=== PATIENT | female | born 1980 | race Caucasian/White ===

== ENCOUNTER 2024-04-09 03:13 | Inpatient (IN) | payer OTHER, SELFPAY ==
[2024-04-09] VITALS (18 sets, daily range): BP systolic 131–168; BP diastolic 67–105; BMI 25.9
[2024-04-09] MEDS: ZOFRAN 4 MG IV ×4 (00:44→19:31)
[2024-04-09] MEDS: NSS 1000 IV ×2 (00:44→01:53)
[2024-04-09] MEDS: DILAUDID 1 MG IV ×8 (00:45→23:48)
[2024-04-09 00:52] LABS: % Basophils 0.7 % (0-2); % Eosinophils 2.8 % (0-6); % Immature Granulocytes 1.2 % (0-0.5); % Lymphocytes 28.6 % (20.5-51.1); % Monocytes 6.8 % (1.7-9.3); % Neutrophils 59.9 % (42.2-75.2); Absolute Basophils 0.1 10^3/uL (0-0.2); Absolute Eosinophils 0.3 10^3/uL (0-0.7); Absolute Immature Granulocytes 0.1 10^3/uL (0-0.05); Absolute Lymphocytes 2.8 10^3/uL (1.2-3.4); Absolute Monocytes 0.7 10^3/uL (0.1-0.6); Absolute Neutrophils 5.9 10^3/uL (1.4-6.5); Hematocrit 30.9 % (37.0-47.0); Hemoglobin 10.2 g/dL (12.0-16.0); Mean Corpuscular Volume 78.8 fL (81.0-99.0); Mean Platelet Volume 9.2 fL (7.4-10.4); Nucleated Red Blood Cells % 0 %; Platelet Count 127 10^3/uL (130-400); Red Blood Cell Count 3.92 10^6/uL (4.20-5.40); Red Cell Dist. Width 17.5 % (11.5-14.5); White Blood Cell Count 9.9 10^3/uL (4.8-10.8)
[2024-04-09 00:59] LABS: INR 1.39; PT 16.9 Sec (11.4-14.6)
[2024-04-09 01:00] LABS: APTT 41.2 Sec (23.4-35.0)
--- NOTE | 2024-04-09 01:08 | ED.GENMED ---
History of Present Illness
General
Chief Complaint: Abdominal Pain
Source: patient, records and spouse
Exam Limitations: none
Time Seen by Provider: 04/09/24 00:25
Nursing documentation reviewed up to this point in time: agreed with
History of Present Illness
History of Present Illness:
43-year-old female with a past medical history of alcohol use, asthma, hypertension who presents to the emergency room with her for evaluation of abdominal pain. Patient reports onset of symptoms today and they have been constant since that
time. She reports severe epigastric to right upper quadrant pain. Associated with nausea and vomiting. She reports occasional streaks of blood in the vomit. She also reports that she has had some diarrhea today with occasional dark stools, some
bright red blood as well. She denies any vaginal bleeding or discharge. She denies any urinary symptoms. She denies any fevers or chills. She has had similar symptoms many times in the past most recently was admitted in August 2023 for acute
pancreatitis. She does admit to continued heavy daily alcohol use including today, last drink was roughly 3 hours ago.
Past History
Past History
ED Past Medical History: Psychiatric
ED Past Surgical History: None
Social History
Tobacco: Vaping
Alcohol: Chronic alcoholic (Last drink last PM. States she no longer drinks daily)
Drug: None
Personal:
Living: with family
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
Family History
Family History: Negative Early CAD
Review of Systems
Review of Systems
All Other Systems: ROS reviewed and negative except as documented in HPI and ROS
Constitutional: Denies fever or chills
Respiratory: Denies cough or trouble breathing
Cardiac: Denies chest pain
ABD/GI: Reports abdominal pain, nausea, vomiting, diarrhea and black stools
: Denies dysuria, frequency, flank pain or bleeding
Musculoskeletal: Denies neck pain or back pain
Neurological: Denies dizzy or headache
Phy Exam
Physical Exam
Physical Exam:
General: Awake, alert, oriented x3; appears uncomfortable pacing around the room holding her abdomen
Head: Normocephalic, atraumatic
Eyes: Conjunctiva normal, sclera anicteric
Throat: Airway intact, dry mucous membranes
Neck: Trachea midline, supple without meningismus
Lungs: Clear to auscultation bilaterally, no wheezing, rales, rhonchi
Heart: Tachycardia with regular rhythm, no murmurs, gallops, or rubs
Abd: Soft, non distended, tender to palpation across the upper abdomen with voluntary guarding
Neuro: No gross deficits
Extremities: Warm and well-perfused with no significant edema
Scores
Heart Failure Risk
Heart Failure Risk Score: Not Applicable
Heart Score for Chest Pain Patients
STEMI patient?: Not applicable
Withdrawal Assessment of Alcohol
Withdrawal Assessment Completed?: Not applicable
Course
Orders/Labs/Results
Orders:
Orders
04/09/24 00:26
CT Abd/pelvis W Iv Cont Urgent
Comment:
Reason For Exam: abd pain, N/V
Ondansetron Injectable [Zofran] 4 mg IV NOW STA
04/09/24 00:27
0.9% Sodium Chloride 1000 ml [Nss] 1,000 ml IV BOLUS
04/09/24 00:31
HYDROmorphone [Dilaudid] 1 mg IV NOW STA
04/09/24 00:41
Type+Screen Urgent
Alcohol Urgent
Complete Blood Count/With Diff Urgent
Comprehensive Metabolic Panel Urgent
HCG, Serum Qualitative Screen Urgent
Comment: ADD ON
Lipase Urgent
Magnesium Urgent
PTT Urgent
Prothrombin Time Urgent
04/09/24 00:53
Test Result ONCE
04/09/24 01:14
Pantoprazole [Protonix IV] 80 mg IV NOW STA
04/09/24 01:15
HYDROmorphone [Dilaudid] 1 mg IV NOW STA
Pantoprazole 80 mg/100 ml Nss [Protonix] 80 mg in 100 ml IV Q10H
04/09/24 01:30
Add On- LAB Urgent
Tests Added?: HCG qual
04/09/24 01:34
0.9% Sodium Chloride 1000 ml [Nss] 1,000 ml IV BOLUS
Abnormal Lab Results
04/09/24
00:41
RBC 3.92 L 10^6/uL
(4.20-5.40)
Hgb 10.2 L g/dL
(12.0-16.0)
Hct 30.9 L %
(37.0-47.0)
MCV 78.8 L fL
(81.0-99.0)
MCH 26.0 L pg
(27.0-31.0)
RDW 17.5 H %
(11.5-14.5)
Plt Count 127 L 10^3/uL
(130-400)
Abs Immat Gran (auto) 0.1 H 10^3/uL
(0-0.05)
Absolute Monos (auto) 0.7 H 10^3/uL
(0.1-0.6)
Immature Gran % 1.2 H %
(0-0.5)
PT 16.9 H Sec
(11.4-14.6)
APTT 41.2 H Sec
(23.4-35.0)
Sodium 146 H mmol/L
(135-145)
Chloride 110 H mmol/L
(98-107)
Carbon Dioxide 21 L mmol/L
(22-30)
Creatinine 0.5 L mg/dL
(0.6-1.0)
Glucose 112 H mg/dl
(70-99)
AST 83 H U/L
(14-36)
Alkaline Phosphatase 194 H U/L
(38-126)
Total Protein 8.7 H g/dl
(6.3-8.2)
Lipase 301 H U/L
(23-300)
04/09/24 00:41
04/09/24 00:41
Vital Signs
Initial and Last Documented VS:
Initial Vital Signs
Temp Pulse Resp BP Pulse Ox
37.3 C 127 20 168/105 96
04/09/24 00:17 04/09/24 00:17 04/09/24 00:17 04/09/24 00:17 04/09/24 00:17
Last Documented Vital Signs
Temp Pulse Resp BP Pulse Ox
37.3 C 120 20 164/104 99
04/09/24 00:17 04/09/24 02:06 04/09/24 02:06 04/09/24 02:06 04/09/24 02:06
Procedures
IV Access
Indication: Emergent access required and Physician skill needed
Performed by:: Ravi Maza MD
Site:: right forearm
Gauge:: 18G
Ultrasound Guidance: Yes
MDM/Problems Addressed
Differential Diagnosis Includes:
Acute pancreatitis, acute gastritis, cholecystitis/cholelithiasis, bowel obstruction
MDM/Problems Addressed:
43-year-old female presents for evaluation of abdominal pain with nausea and vomiting, diarrhea. She has had some hematemesis and dark stools. Long history of alcohol abuse. Hypertensive and tachycardic on arrival. Physical exam as above. IV
placed labs sent off including a CBC and a CMP, coags, type and screen, lipase. Will check alcohol level and hCG. Will send for CT of the abdomen pelvis. Will treat with IV Dilaudid, IV Zofran, IV Protonix. Will provide IV fluids. Will monitor
for signs of acute alcohol withdrawal�no signs of withdrawal at present, suspect tachycardia related to hypovolemia and hypertension related to pain. Will reassess after the above.
Labs reviewed: CBC shows marginal anemia which is stable. CMP shows mild hypernatremia likely hypovolemic. T. bili normal, AST marginally elevated, ALT normal. Lipase borderline at 301 but suspect may be misleading in the setting of recurrent
pancreatitis. Awaiting CT.
CT reviewed: Signs consistent with hepatitis and acute pancreatitis. Suspect acute alcoholic pancreatitis and hepatitis. Also having some upper GI bleeding likely some element of gastritis as well. PPI started. Patient received fluids and
symptom control. Will admit for continued management. Case discussed with hospitalist.
Chronic conditions affecting care:
Alcohol abuse
Acute Exacerbation and/or Progression of Chronic Illness:
Acutely hypertensive likely pain related�treat pain but no emergent antihypertensive for now
Acute Exacerbation and/or Progression of Chronic Illness: HTN
*Radiology
Radiology exam reviewed: radiology read reviewed
*Pulse Oximetry
Patient hypoxic: no
*Critical Care Note
Total Time (30-74mins, 75-104mins- exclusive of procedures): Not Applicable
Data Reviewed
Review of Other/Old Records Reveals: Labs, Records, Radiology Studies and Discharge Summary
Source: patient and records
Patient Management
Discussion with other providers: Hospitalist (Case discussed with hospitalist)
Escalation/DeEscalation of care consider admission/obs:
Admission indicated
ED Attending Note
-
Portions of this chart may have been created with voice recognition software.� Occasional wrong word or��sound alike� substitutions may have occurred due to the inherent limitations of voice recognition software.
Discharge Plan
Departure
Patient Disposition: Admit
Date of Disposition: 04/09/24
Time of Disposition: 02:27
Admit to doctor: Rosalinda
Presentation/result/management discussed w/ accepting MD/DO: Hospitalist
Discharge Problem:
Acute alcoholic hepatitis, Acute alcoholic pancreatitis, Acute alcoholic gastritis, Acute upper GI bleed
Prescriptions:
No Action
cetirizine [Zyrtec] 10 mg Tablet
10 mg PO DAILY
albuterol sulfate 90 mcg/actuation Hfa Aerosol Inhaler
2 puff INHALATION R Q6HPRN PRN (Reason: sob/wheezing)
ondansetron 4 mg tablet,disintegrating
4 mg PO Q8HPRN PRN (Reason: nausea/vomiting)
Referrals:
NONE,* [Family Provider] -
Interventions
Interventions:
*Risk Screen - Suicide Last Done: 04/09/24 00:17
*General Assessment Last Done: 04/09/24 00:17
*Neglect/Abuse Screening Last Done: 04/09/24 00:17
ED- Fall Risk Assessment Last Done: 04/09/24 00:17
*ED COVID-19 Vaccine History Last Done: 04/09/24 00:17
LU-Mwbbej-Rovivvsdcl Assessment Last Done: 04/09/24 01:00
Discharge Date and Time
Print Language: SOUTH AFR[place]
[2024-04-09 01:09] LABS: ALT (SGPT) 27 U/L (0-35); AST (SGOT) 83 U/L (14-36); Albumin 4.7 g/dl (3.5-5.0); Alkaline Phosphatase 194 U/L (38-126); Blood Urea Nitrogen 7 mg/dl (7-17); Calcium 9.6 mg/dl (8.4-10.2); Carbon Dioxide 21 mmol/L (22-30); Chloride 110 mmol/L (98-107); Estimated Creatinine Clearance 99 ml/min; Glucose 112 mg/dl (70-99); Lipase 301 U/L (23-300); Sodium 146 mmol/L (135-145); Total Bilirubin 0.9 mg/dl (0.2-1.3); Total Protein 8.7 g/dl (6.3-8.2); eGFR > 60.00
[2024-04-09 01:32] LABS: HCG, Serum Qualitative Screen Negative
[2024-04-09] MEDS: PROTONIX 100 IV ×3 (01:53→21:21)
[2024-04-09] MEDS: PROTONIX IV 80 MG IV (01:53)
--- NOTE | 2024-04-09 02:46 | HPS.HSE ---
Family Physician
-
Family Physician: * NONE
Chief Complaint
-
abdominal pain, vomiting blood , blood in dirrhea
History of Present Illness
43F HX ETOH abuse , HTN seen at ER for evaluation of abdominal pain
Current acute abdominal pain
- starts yesterday
- constant at RUQ and epigastrium
- POS N/V
- noted streaks of blood in vomitus
- also diarrhea today with mixed with dark stools and bright red blood
- No fever and chills
Report heavy daily alcohol use including today, last drink was roughly 3 hours ago.
Medical History
Past Medical History
Past Medical History: Reports Other (anxiety/depression, alcohol use disorder)
Past Surgical History: Reports None
Social History
Tobacco: Vaping
Alcohol: Occasional
Drug: None
Family History
Family History: Not pertinent
Allergies / Home Medications
Allergies reflects when Allergies were last updated in [facility].
Home Medications with original date entered in [facility]
Allergy/Medication List:
Allergies
Allergy/AdvReac Type Severity Reaction Status Date / Time
lavender (Lavandula Allergy Hives Verified 05/29/23 08:15
angustifolia)
morphine Allergy Hives Verified 05/29/23 08:15
Home Medications
cetirizine 10 mg tablet (Zyrtec) 10 mg PO DAILY 05/29/23
albuterol sulfate 90 mcg/actuation aerosol inhaler 2 puff inhalation R Q6HPRN PRN sob/wheezing 08/14/23
diphenhydramine HCl 25 mg capsule (Benadryl) 50 mg PO HS 08/14/23
ondansetron 4 mg disintegrating tablet 4 mg PO Q8HPRN PRN nausea/vomiting 08/14/23
Review of Systems
-
History Source: Patient
A 12 point ROS was completed and negative except as noted: Yes
Constitutional: Reports No Symptoms
EENT: Reports No Symptoms
Respiratory: Reports No Symptoms
Cardiac: Reports No Symptoms
Abdomen/GI: Reports Abdominal Pain, Nausea and Bloody Stools
: Reports No Symptoms
Musculoskeletal: Reports No Symptoms
Skin: Reports No Symptoms
Neurological: Reports No Symptoms
Endocrine: Reports No Symptoms
Hematologic/Lymphatic: Reports No Symptoms
Psych: Reports No Symptoms
Physical Exam
Vital Signs
Vital Signs
Temp Pulse Resp BP Pulse Ox
99.2 F 120 20 164/104 99
04/09/24 00:17 04/09/24 02:06 04/09/24 02:06 04/09/24 02:06 04/09/24 02:06
Physical Exam
General: Well Developed, Well Nourished and No Apparent Distress
HEENT: NormoCephalic, Moist mucous membranes and Atraumatic
Respiratory: Clear
Cardiac: S1/S2 and Regular Rhythm; No Murmur or Rub
GI: Soft, Non Tender, Non Distended and Normal Bowel Sounds; No Organomegaly
Rectal: Deferred by Provider
Musculoskeletal: No Clubbing, No Cyanosis and No Edema
Skin: No Rash
Neuro: Nonfocal/grossly intact
Laboratory Results
-
04/09/24 00:41
04/09/24 00:41
Laboratory Results
PT 16.9 Sec (11.4-14.6) H 04/09/24 00:41
INR 1.39 04/09/24 00:41
APTT 41.2 Sec (23.4-35.0) H 04/09/24 00:41
Total Bilirubin 0.9 mg/dl (0.2-1.3) 04/09/24 00:41
AST 83 U/L (14-36) H 04/09/24 00:41
ALT 27 U/L (0-35) 04/09/24 00:41
Alkaline Phosphatase 194 U/L (38-126) H 04/09/24 00:41
Lipase 301 U/L (23-300) H 04/09/24 00:41
Data Reviewed
-
CT Scan: Report Reviewed by me
Lab Data: Labs Reviewed by me
Old Records: Reviewed
Impression/Plan
-
Reviewed VS: T 99.2 HR 120 BP 165/105
Data
nl WCC
Hgb 10.2
Plt 127
INR 1.39
Na 146
Cl 110
nl Cr eGFR > 60
AST 83
Nl ALT
AKP 195
Lipase 301
NEG HCG
04/08/24 CT AP : night hawk prelim report: consistent with pancreatitis and hepatitis.
ASSESSMENT & PLAN
Acute ETOH pancreatitis by CT evidence with minimally elevated lipase
- NPO and LR IVF
- Narcotic analgesia PRN
- Anti emetics PRN
- on PPI
- GI consult
Acute emesis with blood streak DDX: esophagitis, gastric erosions , MWT
Dark stool diarrhea with ? hematochezia
- NPO and IVF
- T & S blood consented
- PPI gtt
- Trend H & H
- await GI evaluation
Mild Transaminitis secondary to alcohol use/hepatic steatosis
- Trend LFts
Hi risk for ETOH WDS: Last ETOH/ Vodka was 3 hrs [employer]
Severe ETOH use disorder
-Thiamine folate
- ETOH withdrawal protocol
Anxiety/depression
Vaping history
DVT Px: SCD
Code: Full code
IP TLM
[2024-04-09 03:24] LABS: Alcohol 300 mg/dl
[2024-04-09] MEDS: LR 1000 IV ×4 (04:55→19:31)
[2024-04-09 05:19] LABS: Hematocrit 26.9 % (37.0-47.0); Hemoglobin 8.7 g/dL (12.0-16.0)
[2024-04-09 05:40] LABS: ALT (SGPT) 24 U/L (0-35); AST (SGOT) 73 U/L (14-36); Albumin 4.1 g/dl (3.5-5.0); Alkaline Phosphatase 167 U/L (38-126); Blood Urea Nitrogen 6 mg/dl (7-17); Calcium 8.1 mg/dl (8.4-10.2); Carbon Dioxide 18 mmol/L (22-30); Chloride 112 mmol/L (98-107); Estimated Creatinine Clearance 99 ml/min; Glucose 138 mg/dl (70-99); Lipase 142 U/L (23-300); Potassium 3.7 mmol/L (3.5-5.1); Sodium 144 mmol/L (135-145); Total Bilirubin 0.8 mg/dl (0.2-1.3); Total Protein 7.6 g/dl (6.3-8.2); eGFR > 60.00
--- NOTE | 2024-04-09 06:49 | CON.GI ---
Addendum entered and electronically signed by Shelli Matthew DO 04/09/24 08:46:
Patient seen and examined independently of RADHA. I agree with her note with my additions below
Bob is a 43-year-old female with history of prior alcoholic pancreatitis, alcohol and depression and a gallon of vodka daily who presents with a difficult history but mainly abdominal pain nausea vomiting with streaks of blood. Her last vodka was
3 drinks before admission. Patient believes she had some black stool but nothing here. Her hemoglobin is 8.7 she is microcytic indices with hemoglobin earlier today when she was more hemoconcentrated at 10.2. Platelets are 127. Lipase 300. She
is not answering many questions. She is not on any GLP-1's. On admission total bilirubin 0.9, AST 83, ALT 27, alkaline phosphatase 194. Currently she is tachycardic into the 120s. She is normotensive. She is somnolent after receiving some
benzodiazepines. Her last endoscopy was in 2022 at [facility] with subjective gastritis. She does take daily NSAIDs with several ibuprofen daily. She has not been eating much mainly focusing on alcohol intake and has lost about 25 pounds
since the fall.
# Nausea vomiting -infectious versus and withdrawal versus alcoholic gastritis versus other versus pancreatitis
-- Awaiting CT scan
-- Check urine
-- Withdrawal medications, would start right away
-- PPI drip, antiemetics, monitor hemoglobin
Original Note:
Consultation
-
Date/Time Consultation Requested: 04/09/24 1000
Date/Time Consultation Performed: 04/09/24 0650
Requesting Provider: Kristian Tellez MD
Performing Provider: RADHA Skinner, Shelli Matthew DO
Reason for Consultation: ETOH abuse, elevated lipase, hematemesis
Medical History
Chief Complaint / HPI
Chief Complaint: abdominal pain
History of Present Illness:
Pt is a 42yo presents with hx prior pancreatitis, anxiety/depression and ETOH use presents for abdominal pain and noted emesis with streaks of blood with heavy ETOH use. Pt was seen in 2022 with similar symptoms after starting Saxenda and during
that admission was noted with pancreatitis with concern for ETOH abuse. On admission she is now noted with bili 0.9, AST 83, ALT 27, alk phos 194, lipase 301. Pt states she has been having ongoing issues with abdominal pain, nausea, vomiting, wt
loss but symptoms worse since day prior to admission. Abdominal pain in epigastric and RUQ and constant. She rates ad 05/10. Difficult to say what makes pain better or worse.
She otherwise admits to nausea and vomiting with vomiting some blood with more streaks of blood noted and some black stools with some diarrhea. She denies odynophagia, dysphagia, GERD, constipation, stools. + daily NSAID use several Ibuprofen
daily. Hx EGD 2022 with ' gastritis' at [facility]. No prior EGD.
Past Medical History
Past Medical History: Other (ETOH abuse, anxiety, depression, pancreatitis )
Social History
Tobacco: Vaping
Alcohol: Daily (' difficulty to say but increased use')
Drug: None
Personal:
Living: With Family
Employment: Not Employed
Family History
Family History: Other (no family hx liver/pancreatic issues, mother with IBS )
Allergies / Home Medications
Allergy/AdvReac Type Severity Reaction Status Date / Time
lavender (Lavandula Allergy Hives Verified 04/09/24 00:16
angustifolia)
morphine Allergy Hives Verified 04/09/24 00:16
�Medication �Instructions �Recorded
cetirizine 10 mg tablet (Zyrtec) 10 mg PO DAILY Allergies 05/29/23
albuterol sulfate 90 mcg/actuation 2 puff inhalation R Q6HPRN PRN 08/14/23
aerosol inhaler sob/wheezing
ondansetron 4 mg disintegrating 4 mg PO Q8HPRN PRN nausea/vomiting 08/14/23
tablet
Review of Systems
-
History Source: Patient and Family
Constitutional: Reports Weight Loss (25 lbs loss since last fall per records ) and Fatigue
EENT: Reports No Symptoms
Respiratory: Reports No Symptoms
Abdomen/GI: Reports Abdominal Pain, Nausea, Vomiting (with streaks of blood) and Black Stools (per patient )
: Reports No Symptoms
Musculoskeletal: Reports No Symptoms
Neurological: Reports Other (+ tremors )
Hematologic/Lymphatic: Reports Bleeding
Vital Signs
Temp Pulse Resp BP Pulse Ox
97.5 F 124 22 152/103 94
04/09/24 04:25 04/09/24 06:00 04/09/24 02:57 04/09/24 05:00 04/09/24 06:27
Physical Exam
Exam
General: Other (currently vomiting with bilious emesis noted )
HEENT: Normocephalic and Anicteric
Respiratory: Clear
Cardiac: Other (tachy )
GI: Soft, Tender, Distended and Organomegaly
Musculoskeletal: No Clubbing and No Cyanosis
Skin: Warm and Dry
Neuro: Awake, AO x 3 and Other (anxious )
Psych: Calm
Results
WBC 9.9 10^3/uL (4.8-10.8) 04/09/24 00:41
Hgb 8.7 g/dL (12.0-16.0) L 04/09/24 05:03
Hct 26.9 % (37.0-47.0) L 04/09/24 05:03
MCV 78.8 fL (81.0-99.0) L 04/09/24 00:41
Plt Count 127 10^3/uL (130-400) L 04/09/24 00:41
Absolute Neuts (auto) 5.9 10^3/uL (1.4-6.5) 04/09/24 00:41
PT 16.9 Sec (11.4-14.6) H 04/09/24 00:41
INR 1.39 04/09/24 00:41
APTT 41.2 Sec (23.4-35.0) H 04/09/24 00:41
Sodium 144 mmol/L (135-145) 04/09/24 05:03
Potassium 3.7 mmol/L (3.5-5.1) 04/09/24 05:03
Chloride 112 mmol/L (98-107) H 04/09/24 05:03
Carbon Dioxide 18 mmol/L (22-30) L 04/09/24 05:03
BUN 6 mg/dl (7-17) L 04/09/24 05:03
Creatinine 0.4 mg/dL (0.6-1.0) L 04/09/24 05:03
Calcium 8.1 mg/dl (8.4-10.2) L D 04/09/24 05:03
Total Bilirubin 0.8 mg/dl (0.2-1.3) 04/09/24 05:03
AST 73 U/L (14-36) H 04/09/24 05:03
ALT 24 U/L (0-35) 04/09/24 05:03
Alkaline Phosphatase 167 U/L (38-126) H 04/09/24 05:03
Lipase 142 U/L (23-300) 04/09/24 05:03
Diagnostic Image Results:
04/09/24 CT A/p pending
08/23/23 obs series
Nonobstructive bowel gas pattern. Contrast material in the colon.
08/21/23 CT A/p
1). Pancreatitis with slight worsening of moderate inflammatory stranding around the head and neck and uncinate process of the pancreas
2). Hepatomegaly with diffuse fatty infiltration of the liver
08/18/23 MR abdomen with and without
Hepatomegaly with severe fatty infiltration.
Mild splenomegaly.
Mild interstitial pancreatitis involving the head and proximal body.
No common bile duct or main pancreatic duct dilatation. No evidence of choledocholithiasis.
08/16/23 - US abdomen
1. Trace gallbladder sludge without convincing sonographic evidence for acute cholecystitis.
2. Hepatomegaly and increased echogenicity in the liver, compatible with underlying hepatocellular disease, which most commonly relates to fatty infiltration of the liver.
3. Poorly visualized pancreas which appears heterogeneous in keeping with known pancreatitis
08/14/23 CT Abd/pelvis W Iv Cont
IMPRESSION: CT findings compatible with pancreatitis. There is no evidence of a collection to suggest abscess or developing pseudocyst. No gross evidence of pancreatic necrosis.
No calcified gallstones are identified. There are no CT findings to suggest acute cholecystitis with no evidence for biliary ductal dilation.
Hepatomegaly with diffuse severe fatty infiltration of the liver.
Small peripheral foci of renal parenchymal loss bilaterally, slightly greater on the right compared to the left, and compatible with peripheral scarring.
�
Prior GI Procedures:
EGD: inflammation neg h pylori [facility]
Colonoscopy: none
Assessment / Plan
-
Pt is a 42yo presents with hx anxiety/depression and occasional ETOH use presents for abdominal pain and noted emesis with streaks of blood with heavy ETOH use. Pt was seen in 2022 with similar symptoms after starting Saxenda and during that
admission was noted with pancreatitis with concern for ETOH abuse. On admission she is now noted with bili 0.9, AST 83, ALT 27, alk phos 194, lipase 301.
-abdominal pain with concern for recurrent pancreatitis
-elevated LFT's- prior noted hepatomegaly in imaging
-ETOH abuse
-daily NSAID use
-nausea/vomiting with hematemesis
-hx EGD 2022 with ? gastritis
-anemia
-thrombocytopenia
-anxiety/depression
-splenomegaly
-vaping
PLAN:
etiology of abdominal pain with mild lipase elevation related to pancreatitis from ETOH use with concurrent ETOH hepatitis , biliary related vs other
monitor for recurrent hematemesis/black stools if noted consider EGD when stable from w/d unless signs of aggressive bleeding-- MW tear, PUD, esophagitis vs other
anemia may be multifactorial with some reported bleeding but also bone marrow suppression with ETOH use -- may have some component of ETOH hepatitis (DF low 18.8 on admission labs with control of 13)
CT pending
PPI gtt
trend CBC and INR
IVF LR at 200ml/hr
pain control
NPO
monitor for withdrawal
counseled on quitting ETOH
stressed need for good nutrition
updated spouse on plan
support given -- social work consult
consider psych eval for W/D symptoms
-
-
Thank you for consultation and allowing me to participate in the patient's care. Please call the credit administration specialist GI physician during the after hours with any questions or concerns.
--- NOTE | 2024-04-09 08:00 | PTCARENOTE ---
Received pt awake and alert.+ hand tremors,restlessness,nausea,diaphoresis,and tachycardia.MSAS 9.Medicated with Ativan.Pt c/o severe abdominal pain.ST.IVF and Protonix gtt infusing.POX 95% RA.Lungs CTA.c/o severe nausea.+ moderate amount bilious
emesis.No BM.Voiding in bathroom.Pt's at bedside.Plan of care discussed.Dr Ortiz notifies of emesis and pain.Medicated with Dilaudid and Compazine as ordered.
[2024-04-09] MEDS: THIAMINE INJECTION 200 MG IV ×3 (08:02→23:47)
[2024-04-09] MEDS: COMPAZINE 5 MG IV (08:03)
[2024-04-09] MEDS: FOLVITE 1 MG PO (08:04)
--- NOTE | 2024-04-09 08:18 | W.PN.HOSP.TC ---
Addendum entered and electronically signed by Keke Ortiz MD 04/09/24 14:36:
MSAS scoring high, will start phenobarb taper discussed with RN
transfer to IMU given continued elevated scores
no e/o DT
Original Note:
Today's Communication/Plan
-
IVF
pain control
trend H/H
GI consult
Assessment / Plan
Assessment / Plan
ASSESSMENT & PLAN
Acute ETOH pancreatitis by CT evidence with minimally elevated lipase
- NPO and LR IVF
- Narcotic analgesia PRN
- Anti emetics PRN
- on PPI
- GI consult
Acute emesis with blood streak DDX: esophagitis, gastric erosions , MWT
Dark stool diarrhea with ? hematochezia
- NPO and IVF
- T & S blood consented
- PPI gtt
- Trend H & H
- await GI evaluation
Mild Transaminitis secondary to alcohol use/hepatic steatosis
- Trend LFts
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
Severe ETOH use disorder
-Thiamine folate
- ETOH withdrawal protocol
Anxiety/depression
Vaping history
DVT Px: SCD
Code: Full code
IP TLM
Anticipated Discharge: > 48 hours
Subjective/Interval History
-
Date of Service: April 09, 2024
just received dilaudid and ativan for MSAS 9
pain improving
last vomited 30 minutes ago - bilious
Objective Data
-
Labs:
Laboratory Results
04/09/24 04/09/24 04/09/24
00:41 05:03 10:00
WBC 9.9
Hgb 10.2 L 8.7 L Pending
Hct 30.9 L 26.9 L Pending
Plt Count 127 L
PT 16.9 H
INR 1.39
APTT 41.2 H
Sodium 146 H 144
Potassium 4.0 3.7
Chloride 110 H 112 H
Carbon Dioxide 21 L 18 L
BUN 7 6 L
Creatinine 0.5 L 0.4 L
Glucose 112 H 138 H
Calcium 9.6 8.1 L D
Total Bilirubin 0.9 0.8
AST 83 H 73 H
ALT 27 24
Alkaline Phosphatase 194 H 167 H
04/09/24 04/09/24
16:00 22:00
WBC
Hgb Pending Pending
Hct Pending Pending
Plt Count
PT
INR
APTT
Sodium
Potassium
Chloride
Carbon Dioxide
BUN
Creatinine
Glucose
Calcium
Total Bilirubin
AST
ALT
Alkaline Phosphatase
Vital Signs:
Vital Signs
Temp Pulse Resp BP Pulse Ox
98.1 F 124 22 152/103 94
04/09/24 08:09 04/09/24 06:00 04/09/24 02:57 04/09/24 05:00 04/09/24 06:27
I&O
04/08/24 04/09/24 04/10/24
06:59 06:59 06:59
Intake Total 1999
Balance 1999
Review of Systems
-
History Source: Patient
All other systems: Reviewed and negative
Physical Exam
-
General: No Apparent Distress
HEENT: PERRLA
Respiratory: Clear to Auscultation; Negative Wheezes
Cardiac: S1/S2
GI: Other (tenderness mid-epigastric region )
Musculoskeletal: No Edema
Skin: Warm and Dry; Negative Rash
Neuro: AO x 3
Psych: Calm
Data Reviewed
-
Diagnostic Radiology: Report Reviewed by me
Labs: Labs Reviewed by me
[2024-04-09 10:32] LABS: Iron 62 ug/dl (37-170); Phosphorus 4.8 mg/dl (2.5-4.5)
[2024-04-09 10:42] LABS: Percent Saturation 13 % (20-50); Total Iron Binding Capacity 448 ug/dl (265-497)
[2024-04-09 10:55] LABS: Hematocrit 27.5 % (37.0-47.0); Hemoglobin 8.8 g/dL (12.0-16.0)
[2024-04-09] MEDS: ATIVAN 1 MG PO ×2 (10:57→14:25)
--- NOTE | 2024-04-09 11:05 | CM ---
CM following re: discharge planning.
Reviewed pt's chart, met with pt and pt's at bedside.
Pt is a 43 year old female, admitted with primary dx of Acute ETOH pancreatitis.
Pt allowed her to stay in the room during interview. Pt reports she lives with and 17 year old daughter in a 2SH, 2 steps to enter. 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 Pt admitted to significant h/o alcohol abuse,
has been drinking heavily for years, went to [facility] inpatient D&A a few years ago. pt stated after being at [facility] inpatient D&A rehab, she stayed sober for a while, relapsed and was not looking for any treatment. Pt stated she did not have a
good experience at [facility] and she is not looking for to go to inpatient D&A rehab. CM explained to the pt the importance of inpatient level of D&A rehab and pt stated she will think about it. Pt expressed her agreement [facility]. A
referral to [facility] made, spoke to MOIZ Pretty and he will meet with the pt shortly and he stated he will encourage the pt to go to [place] inpatient D&A rehab.
PCP: Pt stated she does not have PCP, agrees to go to wellness center office on [facility].
Pharmacy: [facility]
D/c plan: Inpatient D&A rehab if pt agrees. otherwise - outpatient D&A program with [facility] to follow.
CM will follow with discharge plan updates as hospitalization progresses
[2024-04-09 11:13] LABS: Urine Albumin Negative (Neg - Trace); Urine Bilirubin Negative (Negative); Urine Character Slightly Cloudy (Clear); Urine Color Yellow; Urine Glucose Negative (Negative); Urine Ketone Negative (Negative); Urine Leukocyte Trace (Negative); Urine Nitrite Positive (Negative); Urine Occult Blood Negative (Negative); Urine Specific Gravity 1.015 (<1.030); Urine Urobilinogen Negative (Neg - 1+)
[2024-04-09 11:23] LABS: Ferritin 10.6 ng/ml (6.24-137)
[2024-04-09 12:05] LABS: Urine Amorphous Seen; Urine Bacteria Many (Negative); Urine Red Blood Cell 0-2 /HPF (0-2)
[2024-04-09] MEDS: PROTONIX IV ×2 (12:21→12:23)
--- NOTE | 2024-04-09 13:09 | PTCARENOTE ---
Pt assessed.MSAS 6.Medicated with Ativan po as per order set.No emesis,but c/o nausea.Medicated with Zofran.
--- NOTE | 2024-04-09 14:45 | PTCARENOTE ---
Pt c/o severe abdominal pain and nausea.MSAS 7.Medicated with Ativan and Dilaudid as ordered.Phenobarb and upgrade to IMU as per Dr Ortiz.
[2024-04-09] MEDS: LUMINAL 97.2 MG PO ×2 (15:44→21:22)
--- NOTE | 2024-04-09 16:17 | PTCARENOTE ---
Pt assessed.Abdominal pain and nausea have resolved at this time.
[2024-04-09 17:37] LABS: Hematocrit 26.4 % (37.0-47.0); Hemoglobin 8.3 g/dL (12.0-16.0)
[2024-04-09 21:38] LABS: Hematocrit 26.9 % (37.0-47.0); Hemoglobin 8.7 g/dL (12.0-16.0)
[2024-04-10] VITALS (13 sets, daily range): BP systolic 128–156; BP diastolic 85–106
[2024-04-10] MEDS: ATIVAN 1 MG PO (00:49)
--- NOTE | 2024-04-10 01:37 | PTCARENOTE ---
Rec'd care of patient at change of shift. Patient alert and oriented. Anxious/restless at times. MSAS continued. ST on tele monitor. Rate in the 100-110's. VSS. C/o RUQ abdominal pain and nausea. PRN Dilaudid/Zofran. Voiding in bathroom. No BM. 2200
H&H 8.7/26.9. IVFs and Protonix gtt infusing through peripheral INT.
[2024-04-10] MEDS: LR 1000 IV ×2 (02:41→07:31)
[2024-04-10] MEDS: ZOFRAN 4 MG IV (05:05)
[2024-04-10] MEDS: DILAUDID 1 MG IV ×6 (05:05→21:33)
[2024-04-10 05:33] LABS: % Basophils 0.3 % (0-2); % Immature Granulocytes 0.3 % (0-0.5); % Lymphocytes 18.2 % (20.5-51.1); % Monocytes 8.7 % (1.7-9.3); % Neutrophils 69.5 % (42.2-75.2); Absolute Eosinophils 0.1 10^3/uL (0-0.7); Absolute Lymphocytes 0.7 10^3/uL (1.2-3.4); Absolute Monocytes 0.3 10^3/uL (0.1-0.6); Absolute Neutrophils 2.6 10^3/uL (1.4-6.5); Hematocrit 26.3 % (37.0-47.0); Hemoglobin 8.4 g/dL (12.0-16.0); Mean Corp Hgb Conc. 31.9 g/dL (33.0-37.0); Mean Corpuscular Hgb 25.2 pg (27.0-31.0); Nucleated Red Blood Cells % 0 %; Red Blood Cell Count 3.33 10^6/uL (4.20-5.40); Red Cell Dist. Width 17.2 % (11.5-14.5); White Blood Cell Count 3.7 10^3/uL (4.8-10.8)
[2024-04-10 05:42] LABS: INR 1.54; PT 18.6 Sec (11.4-14.6)
[2024-04-10 06:05] LABS: ALT (SGPT) 20 U/L (0-35); AST (SGOT) 52 U/L (14-36); Albumin 3.8 g/dl (3.5-5.0); Alkaline Phosphatase 162 U/L (38-126); Blood Urea Nitrogen 5 mg/dl (7-17); Calcium 8.9 mg/dl (8.4-10.2); Carbon Dioxide 27 mmol/L (22-30); Chloride 98 mmol/L (98-107); Estimated Creatinine Clearance 99 ml/min; Glucose 82 mg/dl (70-99); Lipase 105 U/L (23-300); Magnesium 1.4 mg/dl (1.6-2.3); Potassium 3.5 mmol/L (3.5-5.1); Sodium 133 mmol/L (135-145); Total Protein 7.1 g/dl (6.3-8.2); eGFR > 60.00
[2024-04-10] MEDS: MAGNESIUM SULFATE 102 GRAMS IV (07:31)
[2024-04-10] MEDS: LUMINAL 97.2 MG PO ×3 (07:32→21:33)
[2024-04-10] MEDS: THIAMINE INJECTION 200 MG IV ×2 (07:33→16:51)
[2024-04-10] MEDS: FOLVITE 1 MG PO (07:33)
--- NOTE | 2024-04-10 08:05 | PTCARENOTE ---
Received pt awake and alert.Speech appropriate.No tremors.Gait is steady.Pt states that she feels better except for the occasional abdominal pain. c/o 8/10 RUQ abdominal pain.Medicated with Dilaudid.ST noted.IVF and Protonix gtt infusing.Lungs
CTA.POX 92-96%NPO.Slight nausea with no emesis.No BM.Voiding in bathroom.Plan of care discussed.
--- NOTE | 2024-04-10 08:46 | W.PN.HOSP.TC ---
Today's Communication/Plan
-
see plan
Assessment / Plan
Assessment / Plan
ASSESSMENT & PLAN
CT A/P
IMPRESSION:
1. Hepatomegaly and portal hypertension with splenomegaly and recanalization of the umbilical vein. No definitive cirrhotic changes of the liver at CT, however the liver shows diffuse heterogeneous enhancement as above. While this can be seen in
association with hepatitis, it is suspicious for a perfusion anomaly. As on the prior study, predominantly low attenuation of the hepatic parenchyma related to fatty infiltration. Portal veins are patent. As above, hepatic veins are not well seen.
Evaluation of this is limited secondary to single portal venous phase acquisition. These findings could be further evaluated with follow-up abdominal MRI or ultrasound with Doppler evaluation.
2. Mild peripancreatic stranding suggesting possible pancreatitis. This is less pronounced as compared with the prior examination.
Acute ETOH pancreatitis by CT evidence with minimally elevated lipase
- NPO and LR IVF
- Narcotic analgesia PRN
- Anti emetics PRN
- on PPI
- GI consult appreciated
- consider advancing to clears today if no plans for EGD
Acute emesis with blood streak DDX: esophagitis, gastric erosions , MWT
Dark stool diarrhea with ? hematochezia
- NPO and IVF
- T & S blood consented
- PPI gtt
- Trend H & H
- repeat Hg with PLT this afternoon
Mild Transaminitis secondary to alcohol use/hepatic steatosis
- Trend LFts
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
Severe ETOH use disorder
-Thiamine folate
- ETOH withdrawal protocol
-phenobarb taper initiated
Anxiety/depression
Vaping history
DVT Px: SCD
Code: Full code
IP TLM
Anticipated Discharge: > 48 hours
Subjective/Interval History
-
Date of Service: April 10, 2024
continues to have pain
withdrawal symptoms better controlled
Objective Data
-
Labs:
Laboratory Results
04/09/24 04/10/24
21:27 05:14
WBC 3.7 L
Hgb 8.7 L 8.4 L
Hct 26.9 L 26.3 L
Plt Count
PT 18.6 H
INR 1.54
Sodium 133 L D
Potassium 3.5
Chloride 98
Carbon Dioxide 27
BUN 5 L
Creatinine 0.4 L
Glucose 82
Calcium 8.9
Total Bilirubin 2.0 H D
AST 52 H
ALT 20
Alkaline Phosphatase 162 H
Vital Signs:
Vital Signs
Temp Pulse Resp BP Pulse Ox
99.1 F 106 8 144/89 96
04/10/24 08:15 04/10/24 08:00 04/10/24 08:00 04/10/24 08:00 04/10/24 08:03
I&O
04/09/24 04/10/24 04/11/24
06:59 06:59 06:59
Intake Total 1999 5040 / 5350 520 / 520
Balance 1999 5040 / 5350 520 / 520
Review of Systems
-
History Source: Patient
All other systems: Reviewed and negative
Physical Exam
-
General: No Apparent Distress
HEENT: PERRLA
Respiratory: Clear to Auscultation; Negative Wheezes
Cardiac: S1/S2
GI: Other (tenderness mid-epigastric region )
Musculoskeletal: No Edema
Skin: Warm and Dry; Negative Rash
Neuro: AO x 3
Psych: Calm
Data Reviewed
-
Diagnostic Radiology: Report Reviewed by me
Labs: Labs Reviewed by me
[2024-04-10 09:32] LABS: Phosphorus 3.5 mg/dl (2.5-4.5)
[2024-04-10] MEDS: MAGNESIUM SULFATE 50 IV (09:37)
[2024-04-10] MEDS: NSS (PRESERVATIVE FREE) 10 ML IV ×2 (09:37→19:18)
[2024-04-10] MEDS: PROTONIX IV 40 MG IV ×2 (09:37→19:18)
[2024-04-10] MEDS: PROTONIX IV (10:06)
[2024-04-10] MEDS: LR IV (12:13)
--- NOTE | 2024-04-10 12:19 | PTCARENOTE ---
Pt assessed.No change in assessment noted.
[2024-04-10 13:35] LABS: Hemoglobin 8.3 g/dL (12.0-16.0)
--- NOTE | 2024-04-10 13:43 | W.PN.GI.CBS2 ---
Addendum entered and electronically signed by Shelli Matthew DO 04/10/24 15:43:
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 I agree with her note with my additions below
Avani is a 43-year-old female with significant alcohol use with prior episodes of pancreatitis. Likely cirrhotic based on her labs who comes in with abdominal pain nausea vomiting with streaks of blood
# Nausea vomiting abdominal pain -patient had significant abdominal pain and mild peripancreatic stranding consistent with mild acute pancreatitis, acute on chronic
-- BUN and creatinine are normal, lipase normal, no signs of end-organ damage
-- She is tolerating clear liquids and would like to advance, okay to stop the lactated Ringer's as long as she is drinking
-- Okay for full liquid diet. Advance to low-fat tomorrow if doing okay
# Hematemesis-more streaks of blood and no signs of bleeding at this time. Likely Stephanie-Mcdonough tear versus esophagitis
-- Will hold off on endoscopy right now unless she has any significant bleeding
-- Needs to follow-up outpatient to be monitored for her liver disease
# Alcoholism -patient drinks over a gallon of vodka a day is a high risk for withdrawal. She is mildly tachycardic which could be pain as well
-She is on an alcohol withdrawal watch and on medications
# Positive urine culture -hospitalist aware. Patient has no symptoms
Original Note:
Today's Communication / Plan
-
etiology of abdominal pain with mild lipase elevation related to pancreatitis from ETOH use with concurrent ETOH hepatitis
monitor for recurrent hematemesis/black stools if noted consider EGD when stable from w/d unless signs of aggressive bleeding-- MW tear, PUD, esophagitis vs other -- no further vomiting today
will review CT with Dr. Matthew and review need for further imaging
anemia may be multifactorial with some reported bleeding but also bone marrow suppression with ETOH use
DF low 18.8 on admission, 27.8 today with control of 13 cont to follow labs
CT as noted
PPI transitioned to BID
trend CBC and INR
IVF LR at 100ml/hr
pain control
clears as tolerated -- advance as able
current w/d protocol with phenobarb
ETOH abstinence
good nutrition- add enlive BID
updated spouse 04/09
support given -- social work following
Assessment / Plan
-
Pt is a 42yo presents with hx anxiety/depression and occasional ETOH use presents for abdominal pain and noted emesis with streaks of blood with heavy ETOH use. Pt was seen in 2022 with similar symptoms after starting Saxenda and during that
admission was noted with pancreatitis with concern for ETOH abuse. On admission she is now noted with bili 0.9, AST 83, ALT 27, alk phos 194, lipase 301.
04/09 CT a/p
1. Hepatomegaly and portal hypertension with splenomegaly and recanalization of the umbilical vein. No definitive cirrhotic changes of the liver at CT, however the liver shows diffuse heterogeneous enhancement as above. While this can be seen in
association with hepatitis, it is suspicious for a perfusion anomaly. As on the prior study, predominantly low attenuation of the hepatic parenchyma related to fatty infiltration. Portal veins are patent. As above, hepatic veins are not well seen.
Evaluation of this is limited secondary to single portal venous phase acquisition. These findings could be further evaluated with follow-up abdominal MRI or ultrasound with Doppler evaluation.
2. Mild peripancreatic stranding suggesting possible pancreatitis. This is less pronounced as compared with the prior examination.
-abdominal pain with concern for recurrent pancreatitis
-elevated LFT's- prior noted hepatomegaly in imaging
-ETOH abuse
-daily NSAID use
-nausea/vomiting with hematemesis
-hx EGD 2022 with ? gastritis
-anemia
-thrombocytopenia
-anxiety/depression
-splenomegaly
-vaping
PLAN:
etiology of abdominal pain with mild lipase elevation related to pancreatitis from ETOH use with concurrent ETOH hepatitis
monitor for recurrent hematemesis/black stools if noted consider EGD when stable from w/d unless signs of aggressive bleeding-- MW tear, PUD, esophagitis vs other -- no further vomiting today
will review CT with Dr. Matthew and review need for further imaging
anemia may be multifactorial with some reported bleeding but also bone marrow suppression with ETOH use
DF low 18.8 on admission, 27.8 today with control of 13 cont to follow labs
CT as noted
PPI transitioned to BID
trend CBC and INR
IVF LR at 100ml/hr
pain control
clears as tolerated -- advance as able
current w/d protocol with phenobarb
ETOH abstinence
good nutrition- add enlive BID
updated spouse 04/09
support given -- social work following
=
Subjective
Subjective
Date of Service: April 10, 2024
still with some abdominal pain, tolerating small amounts of clear diet no stools recorded
Objective
Data Reviewed
Laboratory Data:
Laboratory Results
04/10/24 13:15
04/10/24 05:14
Laboratory Results
PT 18.6 Sec (11.4-14.6) H 04/10/24 05:14
INR 1.54 04/10/24 05:14
APTT 41.2 Sec (23.4-35.0) H 04/09/24 00:41
Phosphorus 3.5 mg/dl (2.5-4.5) 04/10/24 05:14
Magnesium 1.4 mg/dl (1.6-2.3) L 04/10/24 05:14
Total Bilirubin 2.0 mg/dl (0.2-1.3) H D 04/10/24 05:14
AST 52 U/L (14-36) H 04/10/24 05:14
ALT 20 U/L (0-35) 04/10/24 05:14
Alkaline Phosphatase 162 U/L (38-126) H 04/10/24 05:14
Lipase 105 U/L (23-300) 04/10/24 05:14
Vital Signs and I&O:
Vital Signs
Temp Pulse Resp BP Pulse Ox
98.7 F 107 21 156/97 93
04/10/24 12:21 04/10/24 12:10 04/10/24 12:10 04/10/24 12:10 04/10/24 12:10
I&O
04/09/24 04/10/24 04/11/24
06:59 06:59 06:59
Intake Total 1999 5040 / 5350 1210 / 1210
Balance 1999 5040 / 5350 1210 / 1210
Physical Exam
Physical Exam
HEENT: Anicteric and Moist mucous membranes
Cardiology: Other (tachy)
Pulmonary: Clear
GI: Soft, Non Distended, Tender (upper abdomen) and Organomegaly
Extremities: No Edema
Neuro: Non Focal (minimal tremors)
[2024-04-10 14:56] LABS: Platelet Count 60 10^3/uL (130-400)
--- NOTE | 2024-04-10 16:34 | PTCARENOTE ---
Pt assessed.No change in assessment noted.IVF capped as ordered.Pt tolerating full liquid diet.
[2024-04-10] MEDS: FLUSH (NSS) 2 FLUSH IV (19:18)
--- NOTE | 2024-04-10 20:29 | PTCARENOTE ---
Rec'd care of patient at 1900. Patient alert and oriented. NSR-ST on tele monitor. Rate in the 90-100's. +Murmur. Patient states that it was mentioned in the past and not followed up on. Pulse ox 95-96% on RA. Lung sounds diminished in b/l base.
+BS. Per patient, no BM or vomiting today. RUQ remains tender/firm. Patient rates pain currently at 2/10. Receiving Dilaudid PRN (see MAR). Voiding in bathroom. Ambulating independently. Safe environment maintained.
[2024-04-11] VITALS (7 sets, daily range): BP systolic 121–152; BP diastolic 78–108
[2024-04-11] MEDS: THIAMINE INJECTION 200 MG IV ×4 (00:36→23:10)
[2024-04-11] MEDS: DILAUDID 1 MG IV ×3 (00:36→07:20)
[2024-04-11] MEDS: FLUSH (NSS) 2 FLUSH IV (00:36)
[2024-04-11 04:27] LABS: Hematocrit 27.2 % (37.0-47.0); Hemoglobin 8.8 g/dL (12.0-16.0); Mean Corp Hgb Conc. 32.4 g/dL (33.0-37.0); Mean Corpuscular Hgb 25.7 pg (27.0-31.0); Mean Corpuscular Volume 79.3 fL (81.0-99.0); Mean Platelet Volume 9.2 fL (7.4-10.4); Platelet Count 55 10^3/uL (130-400); Red Blood Cell Count 3.43 10^6/uL (4.20-5.40); Red Cell Dist. Width 17.3 % (11.5-14.5); White Blood Cell Count 3.7 10^3/uL (4.8-10.8)
[2024-04-11 04:44] LABS: INR 1.51; PT 18.3 Sec (11.4-14.6)
[2024-04-11 04:53] LABS: ALT (SGPT) 20 U/L (0-35); AST (SGOT) 62 U/L (14-36); Albumin 4.2 g/dl (3.5-5.0); Alkaline Phosphatase 174 U/L (38-126); Blood Urea Nitrogen 6 mg/dl (7-17); Carbon Dioxide 26 mmol/L (22-30); Chloride 98 mmol/L (98-107); Estimated Creatinine Clearance 99 ml/min; Glucose 78 mg/dl (70-99); Magnesium 1.9 mg/dl (1.6-2.3); Potassium 3.9 mmol/L (3.5-5.1); Sodium 133 mmol/L (135-145); Total Protein 7.7 g/dl (6.3-8.2); eGFR > 60.00
--- NOTE | 2024-04-11 07:03 | W.PN.GI.CBS2 ---
Addendum entered and electronically signed by Mahad Taylor MD 04/11/24 14:19:
I saw and examined the patient.
The SUPERINTENDENT QUARRY or PA's note was reviewed and I agree with the note.
Comment:
Pt with no vomiting, some abdominal d/c after ultrasound
abd: tender hepatomegaly
u/s doppler with normal flow
impression:
alcohol related pancreatitis
portal htn
plan:
hold on egd with no bleeding
alcohol abstoinence
PPI bid
follow hgb
low fat diet as tolerated
Addendum entered and electronically signed by RADHA Gallegos 04/11/24 10:06:
correction to below pt c/o urinary frequency with IVF on admission cont Rx per possible UTI per hospitalist
Original Note:
Today's Communication / Plan
-
etiology of abdominal pain with mild lipase elevation related to pancreatitis from ETOH use with concurrent ETOH hepatitis
no further bleeding and feeling better
reviewed with patient she wishes to hold on EGD and reassess outpatient unless signs of aggressive bleeding-- MW tear, PUD, esophagitis vs other
anemia may be multifactorial with some reported bleeding but also bone marrow suppression with ETOH use
DF low 18.8 on admission, 04/10 27.8 and 26.4 today with control of 13 cont to follow labs
CT as noted will check follow up US doppler-- reviewed results with Dr. Taylor
cont PPI BID
trend CBC and INR
low fat diet with add supplement daily
current w/d protocol with phenobarb
ETOH abstinence
-encouraged ETOH rehab discussion with patient and family -- on severity of liver/pancreatic issue with ETOH use-- support given
sent message to arrange OP follow up in office
Assessment / Plan
-
Pt is a 42yo presents with hx anxiety/depression and occasional ETOH use presents for abdominal pain and noted emesis with streaks of blood with heavy ETOH use. Pt was seen in 2022 with similar symptoms after starting Saxenda and during that
admission was noted with pancreatitis with concern for ETOH abuse with some rise in DF after admission
04/09 CT a/p
1. Hepatomegaly and portal hypertension with splenomegaly and recanalization of the umbilical vein. No definitive cirrhotic changes of the liver at CT, however the liver shows diffuse heterogeneous enhancement as above. While this can be seen in
association with hepatitis, it is suspicious for a perfusion anomaly. As on the prior study, predominantly low attenuation of the hepatic parenchyma related to fatty infiltration. Portal veins are patent. As above, hepatic veins are not well seen.
Evaluation of this is limited secondary to single portal venous phase acquisition. These findings could be further evaluated with follow-up abdominal MRI or ultrasound with Doppler evaluation.
2. Mild peripancreatic stranding suggesting possible pancreatitis. This is less pronounced as compared with the prior examination.
-abdominal pain with concern for recurrent pancreatitis acute on chronic
-ETOH hepatitis -- elevated LFT's
-hepatomegaly imaging with portal HTN changes with likely hepatitis with concern for ETOH hepatitis on admission
-ETOH abuse admits to bottle of vodka daily prior to admission
-daily NSAID use
-Ecoli UTI without symptoms
-nausea/vomiting with hematemesis
-hx EGD 2022 with ? gastritis
-anemia
-thrombocytopenia - worsening during admission
-anxiety/depression
-splenomegaly
-vaping
PLAN:
etiology of abdominal pain with mild lipase elevation related to pancreatitis from ETOH use with concurrent ETOH hepatitis
no further bleeding and feeling better
reviewed with patient she wishes to hold on EGD and reassess outpatient unless signs of aggressive bleeding-- MW tear, PUD, esophagitis vs other
anemia may be multifactorial with some reported bleeding but also bone marrow suppression with ETOH use
DF low 18.8 on admission, 04/10 27.8 and 26.4 today with control of 13 cont to follow labs
CT as noted will check follow up US doppler-- reviewed results with Dr. Taylor
cont PPI BID
trend CBC and INR
low fat diet with add supplement daily
current w/d protocol with phenobarb
ETOH abstinence
-encouraged ETOH rehab discussion with patient and family -- on severity of liver/pancreatic issue with ETOH use-- support given
sent message to arrange OP follow up in office
Subjective
Subjective
Date of Service: April 11, 2024
low fat diet no stools-- feeling better asking about discharge
Objective
Data Reviewed
Laboratory Data:
Laboratory Results
04/11/24 04:15
04/11/24 04:15
Laboratory Results
PT 18.3 Sec (11.4-14.6) H 04/11/24 04:15
INR 1.51 04/11/24 04:15
APTT 41.2 Sec (23.4-35.0) H 04/09/24 00:41
Phosphorus 3.5 mg/dl (2.5-4.5) 04/10/24 05:14
Magnesium 1.9 mg/dl (1.6-2.3) 04/11/24 04:15
Total Bilirubin 2.0 mg/dl (0.2-1.3) H 04/11/24 04:15
AST 62 U/L (14-36) H 04/11/24 04:15
ALT 20 U/L (0-35) 04/11/24 04:15
Alkaline Phosphatase 174 U/L (38-126) H 04/11/24 04:15
Lipase 105 U/L (23-300) 04/10/24 05:14
Vital Signs and I&O:
Vital Signs
Temp Pulse Resp BP Pulse Ox
97.7 F 101 13 148/104 97
04/11/24 03:06 04/11/24 06:20 04/11/24 06:20 04/11/24 06:20 04/11/24 06:20
I&O
04/10/24 04/11/24 04/12/24
06:59 06:59 06:59
Intake Total 5040 / 5350 0 / 269
Balance 5040 / 5350 0 / 269
Physical Exam
Physical Exam
HEENT: Anicteric and Moist mucous membranes
Cardiology: Other (tachy)
Pulmonary: Clear
GI: Soft, Distended, Tender (mild with improvement ) and Organomegaly
Extremities: No Edema
Neuro: Non Focal and Other (minimal tremors )
--- NOTE | 2024-04-11 08:43 | W.PN.HOSP.TC ---
Addendum entered and electronically signed by Keke Ortiz MD 04/11/24 13:36:
Bacteriuria
-no pain on urination
only 6-10 WBC in UA, no need to treat
Original Note:
Today's Communication/Plan
-
OK for transfer to med/surg
advance to low fat diet
oxycodone PRN
patient speaking with CM for resources
Assessment / Plan
Assessment / Plan
ASSESSMENT & PLAN
CT A/P
IMPRESSION:
1. Hepatomegaly and portal hypertension with splenomegaly and recanalization of the umbilical vein. No definitive cirrhotic changes of the liver at CT, however the liver shows diffuse heterogeneous enhancement as above. While this can be seen in
association with hepatitis, it is suspicious for a perfusion anomaly. As on the prior study, predominantly low attenuation of the hepatic parenchyma related to fatty infiltration. Portal veins are patent. As above, hepatic veins are not well seen.
Evaluation of this is limited secondary to single portal venous phase acquisition. These findings could be further evaluated with follow-up abdominal MRI or ultrasound with Doppler evaluation.
2. Mild peripancreatic stranding suggesting possible pancreatitis. This is less pronounced as compared with the prior examination.
Acute ETOH pancreatitis by CT evidence with minimally elevated lipase
- improving
- diet advanced to fulls, tolerating - IVF off
- advance to low fat diet today
- IV dilaudid PRN - start oral oxycodone today PRN
- Anti emetics PRN
- GI consult appreciated
- OK for transfer to med/surg
Acute emesis with blood streak DDX: esophagitis, gastric erosions , MWT
- appreciate GI, no indication for EGD at this time
- continue BID PPI
Mild Transaminitis secondary to alcohol use/hepatic steatosis
- Trend liver enzymes
- stable
-patient will need outpatient follow up
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
Severe ETOH use disorder
-Thiamine folate
- ETOH withdrawal protocol
-phenobarb taper initiated
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
Anxiety/depression
Vaping history
DVT Px: SCD
Code: Full code
Anticipated Discharge: 24 - 48 hours
Subjective/Interval History
-
Date of Service: April 11, 2024
pain improving
didn't sleep well
up and moving around
Objective Data
-
Labs:
Laboratory Results
04/11/24
04:15
WBC 3.7 L
Hgb 8.8 L
Hct 27.2 L
Plt Count 55 L
PT 18.3 H
INR 1.51
Sodium 133 L
Potassium 3.9
Chloride 98
Carbon Dioxide 26
BUN 6 L
Creatinine 0.4 L
Glucose 78
Calcium 9.0
Total Bilirubin 2.0 H
AST 62 H
ALT 20
Alkaline Phosphatase 174 H
Vital Signs:
Vital Signs
Temp Pulse Resp BP Pulse Ox
98.9 F 101 13 148/104 97
04/11/24 07:31 04/11/24 06:20 04/11/24 06:20 04/11/24 06:20 04/11/24 06:20
I&O
04/10/24 04/11/24 04/12/24
06:59 06:59 06:59
Intake Total 5040 / 5350 2690 / 2690
Balance 5040 / 5350 2690 / 2690
Review of Systems
-
History Source: Patient
All other systems: Reviewed and negative
Physical Exam
-
General: No Apparent Distress
HEENT: PERRLA
Respiratory: Clear to Auscultation; Negative Wheezes
Cardiac: S1/S2
GI: Other (tenderness mid-epigastric region )
Musculoskeletal: No Edema
Skin: Warm and Dry; Negative Rash
Neuro: AO x 3
Psych: Calm
Data Reviewed
-
Diagnostic Radiology: Report Reviewed by me
Labs: Labs Reviewed by me
[2024-04-11] MEDS: NSS (PRESERVATIVE FREE) 10 ML IV ×2 (09:03→19:13)
[2024-04-11] MEDS: LUMINAL 97.2 MG PO (09:03)
[2024-04-11] MEDS: FOLVITE 1 MG PO (09:03)
[2024-04-11] MEDS: PROTONIX IV 40 MG IV ×2 (09:04→19:13)
[2024-04-11] MEDS: ROXICODONE 5 MG PO ×3 (10:49→21:57)
[2024-04-11] MEDS: DILAUDID 0.5 MG IV ×3 (11:27→19:12)
--- NOTE | 2024-04-11 14:41 | CM ---
CM following re: discharge planning.
Reviewed pt's chart, met with pt and pt's mother at bedside.
Pt allowed her mother to be presented during interview.
Pt reports she has been meeting with CHANG Pretty, expressed her positive feedback regarding meeting with him and she stated she is thinking of going to inpatient D&A rehab and she still has few thinks to address before she made a final
decision. Pt stated she might loose her insurance at the end of this month and she feels it will effect her inpatient D&A rehab plan. CM encouraged the pt to discuss it with CHANG Anandmy.
CHANG ROCKWELL following.
D/C plan: Inpatient D&A rehab, possibly [place] vs outpatient D&A rehab program. Pt stated that she is not group person and she prefers individual therapy.
CM will follow with discharge plan updates as hospitalization progresses
--- NOTE | 2024-04-11 15:30 | PN.CDI ---
CDI
- -
CDI:
Physician Documentation Request
Admit Date: 04/09/24 03:13
Dear Doctor Diana,
Patient admitted with Acute ETOH pancreatitis, Acute emesis with blood streak DDX: esophagitis, gastric erosions , MWT
04/09 Blood alcohol was 300
Per MAR patient has been given multiple does of IV Ativan for MSAS 5-7
MSAS high was 9 on 04/09
Please provide further specificity as outlined below:
Please identify any associated manifestations
- Intoxication: with or without delirium, with or without perceptual disturbance
- With substance induced psychotic disorder: with delusions and/or hallucinations
- Withdrawal
- Other, please specify
Use of terms such as suspected, likely, concern for, or probable (associated with a specific diagnosis that is being evaluated, monitored, or treated as if it exists) are acceptable and can be coded in the inpatient setting, when documented at the
time of discharge.
Thank you,
Tory Liu RN, BSN
CDI Specialist
tiger text
Please use your independent medical judgment in providing your response.
--- NOTE | 2024-04-11 15:36 | PN.CDI ---
CDI
- -
CDI:
Physician Documentation Request
Admit Date: 04/09/24 03:13
Dear Doctor Diana,
Patient admitted with Acute ETOH pancreatitis
Recent sodium resulted as follows:
Laboratory Tests
04/09/24 04/10/24 04/11/24
05:03 05:14 04:15
Sodium 144 133 L D 133 L
Please provide a diagnosis that supports the above lab abnormalities and additional evaluation/monitoring:
Hyponatremia
Abnormal lab value clinically insignificant
Other
Use of terms such as suspected, likely, concern for, or probable (associated with a specific diagnosis that is being evaluated, monitored, or treated as if it exists) are acceptable and can be coded in the inpatient setting, when documented at the
time of discharge.
Thank you,
Tory Liu RN, BSN
CDI Specialist
tiger text
Please use your independent medical judgment in providing your response.
--- NOTE | 2024-04-11 15:40 | PN.CDI ---
CDI
- -
CDI:
Physician Documentation Request
Admit Date: 04/09/24 03:13
Dear Doctor Diana,
Patient is admitted with acute ETOH pancreastisi and acute emesis with blood streak.
GI progress note states ' anemia my be multifactorial with some reported bleeding but also bone marrow suppression with ETOH use.
Could you further clarify the most likely type of anemia you are monitoring?
Acute blood loss anemia
Acute blood loss anemia with baseline chronic anemia (Specify type)
Anemia of chronic disease - indicate if neoplastic disease, CKD or other
Other
Use of terms such as suspected, likely, concern for, or probable (associated with a specific diagnosis that is being evaluated, monitored, or treated as if it exists) are acceptable and can be coded in the inpatient setting, when documented at the
time of discharge.
Thank you,
Tory Liu RN, BSN
CDI Specialist
tiger text
Please use your independent medical judgment in providing your response.
[2024-04-11] MEDS: LUMINAL 64.8 MG PO ×2 (15:53→21:58)
[2024-04-12] MEDS: ROXICODONE 5 MG PO (01:32)
[2024-04-12] MEDS: DILAUDID 0.5 MG IV ×4 (03:12→20:00)
[2024-04-12 07:00] VITALS: BP 131/98
[2024-04-12 08:08] LABS: INR 1.49; PT 17.9 Sec (11.4-14.6)
[2024-04-12 08:11] LABS: ALT (SGPT) 18 U/L (0-35); AST (SGOT) 55 U/L (14-36); Albumin 4.1 g/dl (3.5-5.0); Alkaline Phosphatase 166 U/L (38-126); Blood Urea Nitrogen 7 mg/dl (7-17); Carbon Dioxide 25 mmol/L (22-30); Chloride 97 mmol/L (98-107); Estimated Creatinine Clearance 99 ml/min; Glucose 95 mg/dl (70-99); Magnesium 1.6 mg/dl (1.6-2.3); Potassium 3.7 mmol/L (3.5-5.1); Sodium 131 mmol/L (135-145); Total Bilirubin 1.6 mg/dl (0.2-1.3); Total Protein 7.6 g/dl (6.3-8.2); eGFR > 60.00
[2024-04-12 08:19] LABS: Hematocrit 25.3 % (37.0-47.0); Hemoglobin 8.3 g/dL (12.0-16.0); Mean Corp Hgb Conc. 32.8 g/dL (33.0-37.0); Mean Corpuscular Hgb 26.2 pg (27.0-31.0); Mean Corpuscular Volume 79.8 fL (81.0-99.0); Mean Platelet Volume 10.7 fL (7.4-10.4); Platelet Count 77 10^3/uL (130-400); Red Blood Cell Count 3.17 10^6/uL (4.20-5.40); Red Cell Dist. Width 17.8 % (11.5-14.5); White Blood Cell Count 4.4 10^3/uL (4.8-10.8)
[2024-04-12] MEDS: FOLVITE 1 MG PO (08:55)
[2024-04-12] MEDS: VITAMIN B1 100 MG PO ×2 (08:55→20:03)
[2024-04-12] MEDS: LUMINAL 64.8 MG PO ×3 (08:56→22:30)
[2024-04-12] MEDS: PROTONIX IV 40 MG IV (08:56)
[2024-04-12] MEDS: NSS (PRESERVATIVE FREE) 10 ML IV (08:56)
[2024-04-12] MEDS: ZOFRAN 4 MG IV ×2 (09:03→13:59)
--- NOTE | 2024-04-12 11:34 | W.PN.HOSP.TC ---
Addendum entered and electronically signed by Keke Ortiz MD 04/12/24 13:47:
Hyponatremia
-stable
acute blood loss anemia
-2/2 MWT likely, Hg now stable
appreciate GI
alcohol withdrawal
-continue MSAS
phenobarb taper
Original Note:
Today's Communication/Plan
-
continue to monitor PO intake and pain control
Assessment / Plan
Assessment / Plan
ASSESSMENT & PLAN
CT A/P
IMPRESSION:
1. Hepatomegaly and portal hypertension with splenomegaly and recanalization of the umbilical vein. No definitive cirrhotic changes of the liver at CT, however the liver shows diffuse heterogeneous enhancement as above. While this can be seen in
association with hepatitis, it is suspicious for a perfusion anomaly. As on the prior study, predominantly low attenuation of the hepatic parenchyma related to fatty infiltration. Portal veins are patent. As above, hepatic veins are not well seen.
Evaluation of this is limited secondary to single portal venous phase acquisition. These findings could be further evaluated with follow-up abdominal MRI or ultrasound with Doppler evaluation.
2. Mild peripancreatic stranding suggesting possible pancreatitis. This is less pronounced as compared with the prior examination.
Acute ETOH pancreatitis by CT evidence with minimally elevated lipase
Transaminitis; alcoholic hepaitits - DF 26.4
- diet advanced to low fat; patient with minimal PO intake
- increase dosing of oxy with persistent pain
- Anti emetics PRN
- GI consult appreciated
Acute emesis with blood streak DDX: esophagitis, gastric erosions , MWT
- appreciate GI, no indication for EGD at this time
- continue BID PPI - change to oral
Hi risk for ETOH WDS: Last ETOH/ Vodka was 3 hrs [employer]
Severe ETOH use disorder
-Thiamine folate
- ETOH withdrawal protocol
-phenobarb taper initiated
-patient not interested in inpatient - she is going to find a girls tennis coach; speaking with CM
Anxiety/depression
Vaping history
DVT Px: SCD
Code: Full code
Anticipated Discharge: 24 - 48 hours
Subjective/Interval History
-
Date of Service: April 12, 2024
continues to have right upper quadrant abdominal pain
difficulty eating
withdrawal symptoms under control
Objective Data
-
Labs:
Laboratory Results
04/12/24
06:36
WBC 4.4 L
Hgb 8.3 L
Hct 25.3 L
Plt Count 77 L D
PT 17.9 H
INR 1.49
Sodium 131 L
Potassium 3.7
Chloride 97 L
Carbon Dioxide 25
BUN 7
Creatinine 0.4 L
Glucose 95
Calcium 9.0
Total Bilirubin 1.6 H
AST 55 H
ALT 18
Alkaline Phosphatase 166 H
Vital Signs:
Vital Signs
Temp Pulse Resp BP Pulse Ox
99.6 F 105 16 131/98 95
04/12/24 07:00 04/12/24 07:00 04/12/24 07:00 04/12/24 07:00 04/12/24 07:00
I&O
04/11/24 04/12/24 04/13/24
06:59 06:59 06:59
Intake Total 2690 / 2690 240 / 240
Balance 2690 / 2690 240 / 240
Review of Systems
-
History Source: Patient
All other systems: Reviewed and negative
Physical Exam
-
General: No Apparent Distress
HEENT: PERRLA
Respiratory: Clear to Auscultation; Negative Wheezes
Cardiac: S1/S2
GI: Other (tenderness mid-epigastric region )
Musculoskeletal: No Edema
Skin: Warm and Dry; Negative Rash
Neuro: AO x 3
Psych: Calm
Data Reviewed
-
Diagnostic Radiology: Report Reviewed by me
Labs: Labs Reviewed by me
--- NOTE | 2024-04-12 13:04 | W.PN.GI.CBS2 ---
Today's Communication / Plan
-
alcohol abstinence
Assessment / Plan
-
Pt is a 42yo presents with hx anxiety/depression and occasional ETOH use presents for abdominal pain and noted emesis with streaks of blood with heavy ETOH use. Pt was seen in 2022 with similar symptoms after starting Saxenda and during that
admission was noted with pancreatitis with concern for ETOH abuse with some rise in DF after admission
04/09 CT a/p
1. Hepatomegaly and portal hypertension with splenomegaly and recanalization of the umbilical vein. No definitive cirrhotic changes of the liver at CT, however the liver shows diffuse heterogeneous enhancement as above. While this can be seen in
association with hepatitis, it is suspicious for a perfusion anomaly. As on the prior study, predominantly low attenuation of the hepatic parenchyma related to fatty infiltration. Portal veins are patent. As above, hepatic veins are not well seen.
Evaluation of this is limited secondary to single portal venous phase acquisition. These findings could be further evaluated with follow-up abdominal MRI or ultrasound with Doppler evaluation.
2. Mild peripancreatic stranding suggesting possible pancreatitis. This is less pronounced as compared with the prior examination.
-abdominal pain with concern for recurrent pancreatitis acute on chronic
-ETOH hepatitis -- elevated LFT's
-hepatomegaly imaging with portal HTN changes with likely hepatitis with concern for ETOH hepatitis on admission
-ETOH abuse admits to bottle of vodka daily prior to admission
-daily NSAID use
-Ecoli UTI without symptoms
-nausea/vomiting with hematemesis
-hx EGD 2022 with ? gastritis
-anemia
-thrombocytopenia - worsening during admission
-anxiety/depression
-splenomegaly
-vaping
u/s doppler: patent flow
plan:
1. alcohol abstinence
2. tender hepatomegaly will improve with alcohol abstinence
3. no plans for EGD
4. pancreatitis resolved
will sign off call with questions
Subjective
Subjective
Date of Service: April 12, 2024
Pt with ruq d/c which has been ongoing. no vomiting or bleeding
Objective
Data Reviewed
Laboratory Data:
Laboratory Results
04/12/24 06:36
04/12/24 06:36
Laboratory Results
PT 17.9 Sec (11.4-14.6) H 04/12/24 06:36
INR 1.49 04/12/24 06:36
APTT 41.2 Sec (23.4-35.0) H 04/09/24 00:41
Phosphorus 3.5 mg/dl (2.5-4.5) 04/10/24 05:14
Magnesium 1.6 mg/dl (1.6-2.3) 04/12/24 06:36
Total Bilirubin 1.6 mg/dl (0.2-1.3) H 04/12/24 06:36
AST 55 U/L (14-36) H 04/12/24 06:36
ALT 18 U/L (0-35) 04/12/24 06:36
Alkaline Phosphatase 166 U/L (38-126) H 04/12/24 06:36
Lipase 105 U/L (23-300) 04/10/24 05:14
Vital Signs and I&O:
Vital Signs
Temp Pulse Resp BP Pulse Ox
99.6 F 105 16 131/98 95
04/12/24 07:00 04/12/24 07:00 04/12/24 07:00 04/12/24 07:00 04/12/24 07:00
I&O
04/11/24 04/12/24 04/13/24
06:59 06:59 06:59
Intake Total 2690 / 2690 240 / 240
Balance 2690 / 2690 240 / 240
Physical Exam
Physical Exam
GI: Soft and Tender (tender hepatomegaly)
Neuro: Non Focal
[2024-04-12 15:00] VITALS: BP 137/78
[2024-04-12] MEDS: ROXICODONE 10 MG PO ×2 (16:30→22:34)
[2024-04-12] MEDS: PROTONIX 40 MG PO (20:03)
[2024-04-12 23:36] VITALS: BP 111/78
[2024-04-13] MEDS: ROXICODONE 10 MG PO ×4 (02:50→21:57)
[2024-04-13] MEDS: DILAUDID 0.5 MG IV ×4 (04:59→20:09)
[2024-04-13 07:04] VITALS: BP 120/80
[2024-04-13 08:04] LABS: Hematocrit 24.9 % (37.0-47.0); Hemoglobin 8.1 g/dL (12.0-16.0); Mean Corp Hgb Conc. 32.5 g/dL (33.0-37.0); Mean Corpuscular Hgb 26.6 pg (27.0-31.0); Mean Corpuscular Volume 81.6 fL (81.0-99.0); Mean Platelet Volume 10.4 fL (7.4-10.4); Platelet Count 82 10^3/uL (130-400); Red Blood Cell Count 3.05 10^6/uL (4.20-5.40); Red Cell Dist. Width 18.6 % (11.5-14.5); White Blood Cell Count 3.6 10^3/uL (4.8-10.8)
[2024-04-13 08:31] LABS: ALT (SGPT) 19 U/L (0-35); AST (SGOT) 51 U/L (14-36); Albumin 3.9 g/dl (3.5-5.0); Alkaline Phosphatase 165 U/L (38-126); Blood Urea Nitrogen 7 mg/dl (7-17); Calcium 9.2 mg/dl (8.4-10.2); Carbon Dioxide 24 mmol/L (22-30); Chloride 98 mmol/L (98-107); Estimated Creatinine Clearance 99 ml/min; Glucose 103 mg/dl (70-99); Sodium 134 mmol/L (135-145); Total Bilirubin 1.2 mg/dl (0.2-1.3); Total Protein 7.4 g/dl (6.3-8.2); eGFR > 60.00
[2024-04-13] MEDS: VITAMIN B1 100 MG PO ×2 (09:24→21:51)
[2024-04-13] MEDS: ZOFRAN 4 MG IV ×3 (09:24→21:51)
[2024-04-13] MEDS: LUMINAL 64.8 MG PO (09:24)
[2024-04-13] MEDS: PROTONIX 40 MG PO ×2 (09:24→21:51)
[2024-04-13] MEDS: FOLVITE 1 MG PO (09:24)
--- NOTE | 2024-04-13 10:40 | W.PN.HOSP.TC ---
Today's Communication/Plan
-
will check in this afternoon to see if patient ready for DC
Assessment / Plan
Assessment / Plan
Ms. Avani Park is a 43 yo woman with hx alcohol abuse, prior pancreatitis, anxiety/depression presents to the ER with abdominal pain, and vomiting with bright red blood streaks. CT with finding of pancreatitis.
CT A/P
IMPRESSION:
1. Hepatomegaly and portal hypertension with splenomegaly and recanalization of the umbilical vein. No definitive cirrhotic changes of the liver at CT, however the liver shows diffuse heterogeneous enhancement as above. While this can be seen in
association with hepatitis, it is suspicious for a perfusion anomaly. As on the prior study, predominantly low attenuation of the hepatic parenchyma related to fatty infiltration. Portal veins are patent. As above, hepatic veins are not well seen.
Evaluation of this is limited secondary to single portal venous phase acquisition. These findings could be further evaluated with follow-up abdominal MRI or ultrasound with Doppler evaluation.
2. Mild peripancreatic stranding suggesting possible pancreatitis. This is less pronounced as compared with the prior examination.
Doppler US 04/11/24
IMPRESSION: Mild hepatomegaly. Stable
Hepatic fatty infiltration. Stable
Recanalized umbilical vein. Stable. This can be seen with portal hypertension
Alcoholic Pancreatitis
Alcoholic Hepatitis; tender hepatomegaly
- liver enzymes improving, patient with ability to take PO but intermittent severe pain spasms all likely from liver inflammation
- oxy 10 PRN with breakthrough Dilaudid
-no ascites seen on US 04/11
-patient wants to go home but still with severe pain earlier this morning required dilaudid - will call patient post lunch to evaluate for possible DC today versus tomorrow
- GI consult appreciated
-appreciate CM, patient given resources; currently refusing inpatient treatment
Acute emesis with blood streak likely Stephanie Mcdonough tear
Acute blood loss anemia
- appreciate GI, no indication for EGD at this time
- continue BID PPI - change to oral
-Hg has been relatively stable
severe Alcohol Use Disorder
Alcohol Withdrawal
-Thiamine folate
- ETOH withdrawal protocol
-phenobarb taper initiated
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
Anxiety/depression
Vaping history
DVT Px: SCD
Code: Full code
Anticipated Discharge: Within 24 hours
Subjective/Interval History
-
Date of Service: April 13, 2024
continuing to have pain; required IV dilaudid this morning. patient wants to go home but mother at bedside worried given her pain
Objective Data
-
Labs:
Laboratory Results
04/13/24
06:34
WBC 3.6 L
Hgb 8.1 L
Hct 24.9 L
Plt Count 82 L
Sodium 134 L
Potassium 4.0
Chloride 98
Carbon Dioxide 24
BUN 7
Creatinine 0.4 L
Glucose 103 H
Calcium 9.2
Total Bilirubin 1.2
AST 51 H
ALT 19
Alkaline Phosphatase 165 H
Vital Signs:
Vital Signs
Temp Pulse Resp BP Pulse Ox
98.0 F 96 18 120/80 97
04/13/24 07:04 04/13/24 07:04 04/13/24 07:04 04/13/24 07:04 04/13/24 07:04
I&O
04/12/24 04/13/24 04/14/24
06:59 06:59 06:59
Intake Total 240 / 240 1200 / 1200
Balance 240 / 240 1200 / 1200
Review of Systems
-
History Source: Patient
All other systems: Reviewed and negative
Physical Exam
-
General: No Apparent Distress
HEENT: PERRLA
Respiratory: Clear to Auscultation; Negative Wheezes
Cardiac: S1/S2
GI: Distended and Other (tenderness mid-epigastric region )
Musculoskeletal: No Edema
Skin: Warm and Dry; Negative Rash
Neuro: AO x 3
Psych: Calm
Data Reviewed
-
Diagnostic Radiology: Report Reviewed by me
Labs: Labs Reviewed by me
[2024-04-13 14:58] VITALS: BP 120/97
--- NOTE | 2024-04-13 15:21 | CM ---
Sukhwinder from [facility] in to see patient.
Per patient she will be losing her insurance shortly.
Plan is for outpatient f/u for ETOH with [facility], Sukhwinder provided resources.
Patient requesting Pain Management referral outpatient TT to MD.
Plan: home with outpatient ETOH resources.
[2024-04-13] MEDS: LUMINAL 32.4 MG PO ×2 (17:00→21:51)
[2024-04-13] MEDS: VITAMIN B1 PO (20:10)
[2024-04-13] MEDS: PROTONIX PO (20:10)
[2024-04-13 23:00] VITALS: BP 124/73
[2024-04-14] MEDS: ROXICODONE 10 MG PO ×4 (03:20→18:06)
[2024-04-14] MEDS: ZOFRAN 4 MG IV ×2 (06:18→15:20)
[2024-04-14] MEDS: DILAUDID 0.5 MG IV ×4 (06:18→20:40)
[2024-04-14 07:00] VITALS: BP 121/77
[2024-04-14] MEDS: MIRALAX 17 GRAMS PO (09:55)
[2024-04-14] MEDS: PROTONIX 40 MG PO ×2 (09:58→20:40)
[2024-04-14] MEDS: VITAMIN B1 100 MG PO ×2 (09:58→20:40)
[2024-04-14] MEDS: LUMINAL 32.4 MG PO ×3 (09:58→20:40)
[2024-04-14] MEDS: SENOKOT-S 1 TABLET PO ×2 (09:58→20:40)
[2024-04-14] MEDS: FOLVITE 1 MG PO (09:58)
--- NOTE | 2024-04-14 10:47 | W.PN.GI.CBS2 ---
Addendum entered and electronically signed by Mahad Taylor MD 04/14/24 15:06:
I saw and examined the patient.
The MILITARY SCIENCE INSTRUCTOR or PA's note was reviewed and I agree with the note.
Comment:
Pt with continue ruq, epigastric d/c. can't eat. is passing gas.
abd: tender epigastric, ruq bs+
impression:
abdominal pain
hx of pancreatitis
alcoholic d/o
plan
CT of abd/pelvis with IV contrast to r/o collection from prior episodes of pancreatitis
if negative and no improvement consider EGD
alcohol abstinence
Dr. Ordonez aware
Original Note:
Today's Communication / Plan
-
asked to reassess for abdominal pain -- would be concerned likely ongoing ETOH gastritis with recent ETOH ingestion
pain has been present since admission with some upper abdominal fullness with heptosplenomegaly and distention
agree with obstruction series
reviewed with patient and mother may take time to settle down
some dry heaves no vomiting + flatus and stools
biggest issue is nutrition-- continued with poor nutrition with continued pain
add ensure BID -- pt request strawberry may tolerate liquids better than solids
stressed absolute need for alcohol abstinence
pt also now reports small varices on EGD in October -- will need 1 year follow up
discussed unclear if underlying cirrhosis
holding on EGD
family updated
Assessment / Plan
-
Pt is a 42yo presents with hx anxiety/depression and occasional ETOH use presents for abdominal pain and noted emesis with streaks of blood with heavy ETOH use. Pt was seen in 2022 with similar symptoms after starting Saxenda and during that
admission was noted with pancreatitis with concern for ETOH abuse with some rise in DF after admission
04/09 CT a/p
1. Hepatomegaly and portal hypertension with splenomegaly and recanalization of the umbilical vein. No definitive cirrhotic changes of the liver at CT, however the liver shows diffuse heterogeneous enhancement as above. While this can be seen in
association with hepatitis, it is suspicious for a perfusion anomaly. As on the prior study, predominantly low attenuation of the hepatic parenchyma related to fatty infiltration. Portal veins are patent. As above, hepatic veins are not well seen.
Evaluation of this is limited secondary to single portal venous phase acquisition. These findings could be further evaluated with follow-up abdominal MRI or ultrasound with Doppler evaluation.
2. Mild peripancreatic stranding suggesting possible pancreatitis. This is less pronounced as compared with the prior examination.
04/11/24 doppler US
Doppler evaluation shows normal flow and direction of flow in the hepatic veins, and portal veins except for the right portal vein which is not visualized.
The umbilical vein is recanalized.
-abdominal pain with concern for recurrent pancreatitis acute on chronic
-ETOH hepatitis -- elevated LFT's
-hepatomegaly imaging with portal HTN changes with likely hepatitis with concern for ETOH hepatitis on admission
-ETOH abuse admits to bottle of vodka daily prior to admission
-daily NSAID use
-Ecoli UTI without symptoms
-nausea/vomiting with hematemesis
-hx EGD 2022 with ? gastritis also report EGD 10/2023 with small varices
-anemia- pancytopenia
-thrombocytopenia - worsening during admission
-anxiety/depression
-splenomegaly
-vaping
PLAN:
asked to reassess for abdominal pain -- would be concerned likely ongoing ETOH gastritis with recent ETOH ingestion
pain has been present since admission with some upper abdominal fullness with heptosplenomegaly and distention
agree with obstruction series
reviewed with patient and mother may take time to settle down
some dry heaves no vomiting + flatus and stools
biggest issue is nutrition-- continued with poor nutrition with continued pain
add ensure BID -- pt request strawberry may tolerate liquids better than solids
stressed absolute need for alcohol abstinence
pt also now reports small varices on EGD in October -- will need 1 year follow up
discussed unclear if underlying cirrhosis
holding on EGD
family updated
Subjective
Subjective
Date of Service: April 14, 2024
low fat diet + stool 2 days ago + flatus
Objective
Data Reviewed
Laboratory Data:
Laboratory Results
04/13/24 06:34
04/13/24 06:34
Laboratory Results
PT 17.9 Sec (11.4-14.6) H 04/12/24 06:36
INR 1.49 04/12/24 06:36
APTT 41.2 Sec (23.4-35.0) H 04/09/24 00:41
Phosphorus 3.5 mg/dl (2.5-4.5) 04/10/24 05:14
Magnesium 1.6 mg/dl (1.6-2.3) 04/12/24 06:36
Total Bilirubin 1.2 mg/dl (0.2-1.3) 04/13/24 06:34
AST 51 U/L (14-36) H 04/13/24 06:34
ALT 19 U/L (0-35) 04/13/24 06:34
Alkaline Phosphatase 165 U/L (38-126) H 04/13/24 06:34
Lipase 105 U/L (23-300) 04/10/24 05:14
Vital Signs and I&O:
Vital Signs
Temp Pulse Resp BP Pulse Ox
100.0 F 86 16 121/77 97
04/14/24 07:00 04/14/24 07:00 04/14/24 07:00 04/14/24 07:00 04/14/24 07:00
I&O
04/13/24 04/14/24 04/15/24
06:59 06:59 06:59
Intake Total 1200 / 1200 840 / 840
Balance 1200 / 1200 840 / 840
Physical Exam
Physical Exam
HEENT: Anicteric and Moist mucous membranes
Cardiology: Normal Sinus Rhythm
Pulmonary: Clear
GI: Soft, Distended, Tender and Organomegaly
Extremities: No Edema
Neuro: Non Focal
[2024-04-14 10:55] LABS: Lipase 65 U/L (23-300)
--- NOTE | 2024-04-14 12:15 | CM ---
Patient seen bedside.
Patient spoke with Sukhwinder from [facility] yesterday and has resources for outpatient f/u.
Provided patient with information for applying for health insurance as her insurance will be terminated in a few weeks due to job loss.
Plan:home with outpatient resources
--- NOTE | 2024-04-14 12:21 | W.PN.HOSP.TC ---
Today's Communication/Plan
-
OBS series
supplementals, pain control, OOBTC
GI to re-evaluate
Assessment / Plan
Assessment / Plan
Ms. Avani Park is a 43 yo woman with hx alcohol abuse, prior pancreatitis, anxiety/depression presents to the ER with abdominal pain, and vomiting with bright red blood streaks. CT with finding of pancreatitis.
CT A/P
IMPRESSION:
1. Hepatomegaly and portal hypertension with splenomegaly and recanalization of the umbilical vein. No definitive cirrhotic changes of the liver at CT, however the liver shows diffuse heterogeneous enhancement as above. While this can be seen in
association with hepatitis, it is suspicious for a perfusion anomaly. As on the prior study, predominantly low attenuation of the hepatic parenchyma related to fatty infiltration. Portal veins are patent. As above, hepatic veins are not well seen.
Evaluation of this is limited secondary to single portal venous phase acquisition. These findings could be further evaluated with follow-up abdominal MRI or ultrasound with Doppler evaluation.
2. Mild peripancreatic stranding suggesting possible pancreatitis. This is less pronounced as compared with the prior examination.
Doppler US 04/11/24
IMPRESSION: Mild hepatomegaly. Stable
Hepatic fatty infiltration. Stable
Recanalized umbilical vein. Stable. This can be seen with portal hypertension
Assessment:
Abdomen distention, concern for Ileus from ETOH pancreatitis/Hepatitis
Prior hx of Ileus in August
- add bowel regimen
- encourage supplements
- encourage OOBTC
- check Obstruction Series
Alcoholic Pancreatitis
Alcoholic Hepatitis; tender hepatomegaly
- LFTs improving
- continue prn Oxycodone/Dilaudid
- GI following
Acute emesis with blood streak likely Stephanie Mcdonough tear
Acute blood loss anemia
- appreciate GI, no indication for EGD at this time
- continue BID PPI - change to oral
- Hg has been relatively stable
- needs repeat EGD in 1 year for hx of varices previously
severe Alcohol Use Disorder
Alcohol Withdrawal
- Thiamine folate
- ETOH withdrawal protocol
- phenobarbital taper initiated
- appreciate CM, patient given resources; currently refusing inpatient treatment
Hyponatremia
- improving
Anxiety/depression
Vaping history
DVT ppx: SCDs
Code: Full
Anticipated Discharge: 24 - 48 hours
Subjective/Interval History
-
Date of Service: April 14, 2024
reports abd distention yesterday and pain, + flatus, slightly less distended today but ongoing pain
reports hx of ileus last admission in August
Objective Data
-
Vital Signs:
Vital Signs
Temp Pulse Resp BP Pulse Ox
100.0 F 86 16 121/77 97
04/14/24 07:00 04/14/24 07:00 04/14/24 07:00 04/14/24 07:00 04/14/24 07:00
I&O
04/13/24 04/14/24 04/15/24
06:59 06:59 06:59
Intake Total 1200 / 1200 840 / 840
Balance 1200 / 1200 840 / 840
Physical Exam
-
General: Pain
HEENT: Normocephalic and Atraumatic
Respiratory: Clear to Auscultation; Negative Wheezes or Rales
Cardiac: Regular Rhythm and S1/S2
GI: Tender (diffusely) and Distended
Genito-urinary: No Costovertebral Tender
Musculoskeletal: No Edema
Neuro: AO x 3
Psych: Calm
Data Reviewed
-
Total Time Spent with Patient (in minutes): 45
Labs: Labs Reviewed by me
[2024-04-14 15:00] VITALS: BP 111/74
[2024-04-14 23:22] VITALS: BP 104/73
[2024-04-15] MEDS: ROXICODONE 10 MG PO ×2 (04:06→11:48)
[2024-04-15] MEDS: OMNIPAQUE 50 ML PO (06:14)
[2024-04-15] MEDS: DILAUDID 0.5 MG IV ×3 (06:14→14:43)
[2024-04-15] MEDS: ZOFRAN 4 MG IV (06:14)
[2024-04-15 07:58] VITALS: BP 124/98
[2024-04-15 08:58] LABS: ALT (SGPT) 18 U/L (0-35); AST (SGOT) 41 U/L (14-36); Albumin 4.1 g/dl (3.5-5.0); Alkaline Phosphatase 158 U/L (38-126); Blood Urea Nitrogen 7 mg/dl (7-17); Calcium 9.2 mg/dl (8.4-10.2); Carbon Dioxide 20 mmol/L (22-30); Chloride 99 mmol/L (98-107); Estimated Creatinine Clearance 99 ml/min; Glucose 202 mg/dl (70-99); Potassium 4.1 mmol/L (3.5-5.1); Sodium 132 mmol/L (135-145); Total Bilirubin 1.2 mg/dl (0.2-1.3); Total Protein 7.6 g/dl (6.3-8.2); eGFR > 60.00
[2024-04-15] MEDS: SENOKOT-S PO (09:24)
[2024-04-15] MEDS: MIRALAX PO (09:24)
[2024-04-15] MEDS: LUMINAL 32.4 MG PO (10:03)
[2024-04-15] MEDS: FOLVITE 1 MG PO (10:03)
[2024-04-15] MEDS: VITAMIN B1 100 MG PO (10:03)
[2024-04-15] MEDS: PROTONIX 40 MG PO (10:03)
--- NOTE | 2024-04-15 11:34 | W.PN.HOSP.TC ---
Today's Communication/Plan
-
dc home later this afternoon and GI f/u in 3-4 weeks
Assessment / Plan
Assessment / Plan
Ms. Avani Park is a 43 yo woman with hx alcohol abuse, prior pancreatitis, anxiety/depression presents to the ER with abdominal pain, and vomiting with bright red blood streaks. CT with finding of pancreatitis.
CT A/P
IMPRESSION:
1. Hepatomegaly and portal hypertension with splenomegaly and recanalization of the umbilical vein. No definitive cirrhotic changes of the liver at CT, however the liver shows diffuse heterogeneous enhancement as above. While this can be seen in
association with hepatitis, it is suspicious for a perfusion anomaly. As on the prior study, predominantly low attenuation of the hepatic parenchyma related to fatty infiltration. Portal veins are patent. As above, hepatic veins are not well seen.
Evaluation of this is limited secondary to single portal venous phase acquisition. These findings could be further evaluated with follow-up abdominal MRI or ultrasound with Doppler evaluation.
2. Mild peripancreatic stranding suggesting possible pancreatitis. This is less pronounced as compared with the prior examination.
Doppler US 04/11/24
IMPRESSION: Mild hepatomegaly. Stable
Hepatic fatty infiltration. Stable
Recanalized umbilical vein. Stable. This can be seen with portal hypertension
Assessment:
Abdomen distention, concern for Ileus from ETOH pancreatitis/Hepatitis
Prior hx of Ileus in August
- add bowel regimen
- encourage supplements
- encourage OOBTC
- CT imaging: New wall thickening and surrounding fluid involving the cecum which can be related to either acute focal colitis versus portal hypertensive colopathy. Stable minimal peripancreatic fluid suggesting mild interstitial edematous
pancreatitis. No peripancreatic fluid collection. Stable hepatomegaly with underlying steatosis. Interval enlargement of the spleen now measuring up to 17 cm compared to 14 cm on 04/09/2024. This may be related to acute worsening of portal
hypertension. Redemonstration of findings of portal hypertension characterized by gastrosplenic varices and recanalized umbilical vein. The portal venous system is patent.
Alcoholic Pancreatitis
Alcoholic Hepatitis; tender hepatomegaly
- LFTs improving
- continue prn Oxycodone/prn Tylenol
- GI follow up outpatient
- pain management outpatient follow up
Acute emesis with blood streak likely Stephanie Mcdonough tear
Acute blood loss anemia
- appreciate GI, no indication for EGD at this time
- continue BID PPI - change to oral
- Hg has been relatively stable
- needs repeat EGD in 1 year for hx of varices previously
severe Alcohol Use Disorder
Alcohol Withdrawal
- Thiamine folate
- ETOH withdrawal protocol
- phenobarbital taper initiated
- appreciate CM, patient given resources; currently refusing inpatient treatment
Hyponatremia
- improving
Anxiety/depression
Vaping history
DVT ppx: SCDs
Code: Full
More than 30 minutes spent in discharge including
Final examination of the patient
Summarizing hospital stay
Instructions for continuing care to all relevant caregivers
Preparation of discharge records, prescriptions, and referral forms
Total time spent (in minutes): 42
Anticipated Discharge: Today
Subjective/Interval History
-
Date of Service: April 15, 2024
pain stable, some period vomiting (bile) but also was able to keep some of her meal down
no fevers
Objective Data
-
Labs:
Laboratory Results
04/15/24
07:43
PT 17.0 H
INR 1.40
Sodium 132 L
Potassium 4.1
Chloride 99
Carbon Dioxide 20 L
BUN 7
Creatinine 0.4 L
Glucose 202 H
Calcium 9.2
Total Bilirubin 1.2
AST 41 H
ALT 18
Alkaline Phosphatase 158 H
Vital Signs:
Vital Signs
Temp Pulse Resp BP Pulse Ox
98.4 F 87 18 124/98 98
04/15/24 07:58 04/15/24 07:58 04/15/24 07:58 04/15/24 07:58 04/15/24 07:58
I&O
04/14/24 04/15/24 04/16/24
06:59 06:59 06:59
Intake Total 840 / 840 1380 / 1380
Balance 840 / 840 1380 / 1380
Physical Exam
-
General: No Apparent Distress
HEENT: Normocephalic and Atraumatic
Respiratory: Negative Wheezes
Cardiac: Regular Rhythm and S1/S2
GI: Soft and Nontender
Genito-urinary: No Costovertebral Tender
Musculoskeletal: No Edema
Neuro: AO x 3
Psych: Calm
Data Reviewed
-
Total Time Spent with Patient (in minutes): 41
Labs: Labs Reviewed by me
--- NOTE | 2024-04-15 11:40 | W.DS.TRANS ---
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
-
Discharge Instructions:
Discharge Diagnosis/Procedures alcohol induced hepatitis, pancreatitis with
portal hypertension and splenomegaly
Diet Low Fat,Supplements
Activity As tolerated
Instructions:
Stand-Alone Forms:
Changes to Home Medications: No
Discharge Medications:
DC Medications w/original date entered in [facility]
cetirizine 10 mg tablet (Zyrtec) 10 mg PO DAILY Allergies 05/29/23
albuterol sulfate 90 mcg/actuation aerosol inhaler 2 puff inhalation R Q6HPRN PRN sob/wheezing 08/14/23
folic acid 1 mg tablet 1 mg PO DAILY #100 tabs 04/15/24
ondansetron 4 mg disintegrating tablet 4 mg PO Q8HPRN PRN nausea/vomiting #20 tabs 04/15/24
oxycodone 5 mg tablet 5 mg PO Q8HPRN PRN moderate pain #20 tabs 04/15/24
pantoprazole 40 mg tablet,delayed release 40 mg PO BID #60 tabs 04/15/24
polyethylene glycol 3350 17 gram oral powder packet (HealthyLax) 17 g PO DAILY #30 ea 04/15/24
thiamine HCl (vitamin B1) 100 mg tablet 100 mg PO BID #100 tabs 04/15/24
Home Medication Changes
Pending Results: No
Total time spent discharging patient (in min): 41
--- NOTE | 2024-04-15 12:18 | CM ---
Patient seen with mother, patient reports she is being discharged today. Patients mother will provide transportation home. Patient denies any needs from CM at this time. CM will continue to follow for all discharge planning needs.
Plan; home with outpatient resources from [facility].
[2024-04-15 15:33] VITALS: BP 122/72
== END 2024-04-15 17:00 | disposition home or self-care (01) | DRG 432 ==
LOC: 4 WEST ACU 03:13
PROVIDERS: Nurse Practitioner Adult Health; Student in an Organized Health Care Education/Training Program; ADMITTING PHYSICIAN Internal Medicine; ATTENDING PHYSICIAN Internal Medicine; CONSULT PHYSICIAN Internal Medicine; EMERGENCY PHYSICIAN Emergency Medicine
DX: K70.10 Alcoholic hepatitis without ascites (principal); K20.91 Esophagitis, unspecified with bleeding; K22.6 Gastro-esophageal laceration-hemorrhage syndrome; K85.20 Alcohol induced acute pancreatitis without necrosis or infection; D62 Acute posthemorrhagic anemia; E87.1 Hypo-osmolality and hyponatremia; K76.6 Portal hypertension; D69.6 Thrombocytopenia, unspecified; F10.20 Alcohol dependence, uncomplicated; I10 Essential (primary) hypertension; F32.A Depression, unspecified; K25.9 Gastric ulcer, unspecified as acute or chronic, without hemorrhage or perforation; R16.2 Hepatomegaly with splenomegaly, not elsewhere classified; F41.9 Anxiety disorder, unspecified; F17.290 Nicotine dependence, other tobacco product, uncomplicated; R82.71 Bacteriuria; B96.20 Unspecified Escherichia coli [E. coli] as the cause of diseases classified elsewhere; K76.0 Fatty (change of) liver, not elsewhere classified; Z79.899 Other long term (current) drug therapy; Z88.5 Allergy status to narcotic agent; Z88.8 Allergy status to other drugs, medicaments and biological substances
CPT/HCPCS: 74022; 74177; 76700; 80053; 81003; 81015; 82077; 82728; 83540; 83550; 83690; 83735; 84100; 84703; 85014; 85018; 85025; 85027; 85049; 85610; 85730; 86850; 86900; 86901; 87077; 87086; 87147; 87186; 93005; 93975; 96361; 96374; 96375; 96376; 99285; 99406; Q9967

== ENCOUNTER 2025-04-06 05:14 | Inpatient (IN) | payer BC, SELFPAY ==
[2025-04-05 21:36] VITALS: BP 173/135
[2025-04-05 22:27] LABS: Hematocrit 33.1 % (37.0-47.0); Hemoglobin 11.4 g/dL (12.0-16.0); Mean Corp Hgb Conc. 34.4 g/dL (33.0-37.0); Mean Corpuscular Volume 85.3 fL (81.0-99.0); Nucleated Red Blood Cells % 0 %; Red Cell Dist. Width 20.2 % (11.5-14.5)
[2025-04-05 22:30] LABS: HCG, Serum Qualitative Screen Negative
[2025-04-05 22:36] LABS: ALT (SGPT) 79 U/L (0-35); AST (SGOT) 379 U/L (14-36); Albumin 4.9 g/dl (3.5-5.0); Alkaline Phosphatase 254 U/L (38-126); Blood Urea Nitrogen 4 mg/dl (7-17); Calcium 9.0 mg/dl (8.4-10.2); Carbon Dioxide 22 mmol/L (22-30); Chloride 104 mmol/L (98-107); Glucose 143 mg/dl (70-99); Lipase 375 U/L (23-300); Potassium 4.1 mmol/L (3.5-5.1); Sodium 143 mmol/L (135-145); Total Protein 9.9 g/dl (6.3-8.2); eGFR > 60.00
[2025-04-05 22:47] LABS: Platelet Count 50 10^3/uL (130-400)
--- NOTE | 2025-04-05 23:38 | ED.GENMED ---
History of Present Illness
General
Chief Complaint: Abdominal Pain
Source: patient
Exam Limitations: none
Time Seen by Provider: 04/05/25 23:38
Nursing documentation reviewed up to this point in time: agreed with
History of Present Illness
History of Present Illness:
This is a 44-year-old female with past medical history of hypertension, alcohol use disorder, anxiety, depression, pancreatitis, who presents emergency department today with concerns of abdominal pain, nausea, and vomiting. She reports that the
started around four days ago. She feels a pain in her left upper abdomen. She compares it to when she had pancreatitis in the past. Patient reports that her vomit has been dark brown, but denies any black vomit, denies any vomiting of blood. She
denies any rectal bleeding or rectal pain. She denies any dark tarry stools. She has been unable to keep any food down without vomiting. She is occasionally able to drink water. She is a daily drinker and she reports that her last drink was around 7
PM. She denies any fevers or chills. She denies any sick contacts. She knows any dysuria or hematuria.
Past History
Past History
ED Past Medical History: Psychiatric
ED Past Surgical History: None
Social History
Tobacco: Vaping
Alcohol: Chronic alcoholic (Last drink last PM. States she no longer drinks daily)
Drug: None
Personal:
Living: with family
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
Family History
Family History: Negative Early CAD
Review of Systems
Review of Systems
All Other Systems: ROS reviewed and negative except as documented in HPI and ROS
Phy Exam
Physical Exam
Physical Exam:
General: Patient is appears uncomfortable secondary to pain however non-toxic appearing
Skin: Warm and dry, no rashes or lesions
Head: Normocephalic, atraumatic
Eyes: Sclera non-icteric. EOMs intact.
Cardiac: Patient is tachycardic otherwise regular rhythm, no murmurs
Abdomen: Left sided abdominal tenderness to palpation
Genitourinary: No rectal bleeding, no anal lesions. No stool within rectal vault.
Pulm: Normal respiratory effort, no wheezes, rales, or rhonchi
Neuro: CN II-XII intact, no focal neurologic deficits. Resting tremor noted.
Psychiatric: Anxious affect.
Scores
Withdrawal Assessment of Alcohol
Withdrawal Assessment Completed?: Yes
Nausea and Vomiting: Intermittent nausea with dry heaves
Tactile Disturbances: Moderate itching, pins and needles , burning or numbness
Tremor: Moderate, with patient's arms extended
Auditory Disturbances: Not present
Paroxysmal Sweats: Beads of sweat obvious on forehead
Visual Disturbances: Very mild sensitivity
Anxiety: Moderately anxious, or guarded, so anxiety is inferred
Headache, Fullness in Head: Not present
Agitation: Moderately fidgety and restless
Orientation and clouding of sensorium: Oriented and can do serial additions
Total CIWA Score: 24
Alcohol Withdrawal Medication Recommendation: Equal to MSAS >11. Lorazepam 2-4mg IV NOW and re-assess q1hr
Course
Orders/Labs/Results
Orders:
Orders
04/05/25 21:40
IV Insert/Care/Rem.- Treatment PRN
Urinalysis Reflex To Culture Urgent
Date Specimen was Collected: 04/05/25
Time Specimen was Collected: 21:40
Test Result ONCE
04/05/25 21:54
Alcohol Urgent
Complete Blood Count/With Diff Urgent
Comprehensive Metabolic Panel Urgent
HCG, Serum Qualitative Screen Urgent
Comment: Notify provider if positive test present
Lipase Urgent
04/05/25 23:52
HYDROmorphone [Dilaudid] 0.5 mg IV NOW STA
Ondansetron Injectable [Zofran] 4 mg IV NOW STA
Pantoprazole [Protonix IV] 80 mg IV NOW STA
07/06/25 23:53
Lactated Ringers [Lr] 1,000 ml IV BOLUS
04/05/25 23:57
Prothrombin Time Urgent
04/06/25 00:53
Urine Microscopic Reflex Cult Urgent
Urine Culture Urgent
ESTUARDO Source: U
Specimen Description:
Date Specimen was Collected: 04/05/25
Time Specimen was Collected: 21:40
04/06/25 01:33
Type+Screen Routine
BBK Wristband Number:
04/06/25 02:10
Lorazepam [Ativan] 2 mg IV NOW STA
04/06/25 02:15
HYDROmorphone [Dilaudid] 0.5 mg IV NOW STA
04/06/25 02:20
CT Abd/pelvis W Iv Cont Urgent
Comment:
Reason For Exam: left sided abdominal pain
04/06/25 03:12
Lorazepam [Ativan] 2 mg IV NOW STA
04/06/25 04:43
HYDROmorphone [Dilaudid] 0.5 mg IV NOW STA
Lactated Ringers [Lr] 500 ml IV BOLUS
04/06/25 04:54
Admit/Transfer Patient As Directed
Co-Sign Provider:
Level of Care: Inpatient admission
Assign to:: IMU- Intermediate Care
Physician / Group: Lucas
Diagnosis: ETOH withdrawal
Reason for Hospitalization: ETOH hepatitis, withdrawal, gastritis
Expected length of stay greater than two midnights?: Yes
ELOS- Estimated Length of Stay in days: 2
I certify the patient meets the requirements for IP care: Yes
PRN Pain Medication Management As Directed
May give lesser potent ordered pain med per pt: Yes
preference::
Protocol:: Medication orders for pain may be administered in a
manner that supports deferring to patient preference
when the pt is:
- Requesting an ordered lesser potent pain medication.
Least to most potent pain medications are defined
as: acetaminophen < NSAID < tramadol < opioids
(morphine, oxycodone, hydromorphone).
- Requesting a lesser dose of the same medication IF
ORDERED.
- Requesting a less intrusive route of administration
if both routes are prescribed by the provider (PO <
IV).
04/06/25 04:55
Code Status As Directed
Resuscitation Status: Full Code
Abnormal Lab Results
04/05/25 04/06/25 04/06/25
21:54 00:53 01:33
WBC 4.3 L 10^3/uL
(4.8-10.8)
RBC 3.88 L 10^6/uL
(4.20-5.40)
Hgb 11.4 L g/dL
(12.0-16.0)
Hct 33.1 L %
(37.0-47.0)
RDW 20.2 H %
(11.5-14.5)
Plt Count 50 L 10^3/uL
(130-400)
Monocytes % 9.7 H %
(1.7-9.3)
PT 16.3 H Sec
(11.4-14.6)
BUN 4 L mg/dl
(7-17)
Creatinine 0.5 L mg/dL
(0.6-1.0)
Glucose 143 H mg/dl
(70-99)
Total Bilirubin 5.1 H mg/dl
(0.2-1.3)
AST 379 H U/L
(14-36)
ALT 79 H U/L
(0-35)
Alkaline Phosphatase 254 H U/L
(38-126)
Total Protein 9.9 H g/dl
(6.3-8.2)
Lipase 375 H U/L
(23-300)
Urine Ketones 1+ A
(Negative)
Ur Occult Blood Reflex 3+ A
(Negative)
Urine Bilirubin 2+ A
(Negative)
Urine Urobilinogen 4+ A
(Neg - 1+)
Leukocyte Esterase Rfl 1+ A
(Negative)
Urine RBC 3-6 A /HPF
(0-2)
Urine Bacteria (Reflex) Moderate A
(Negative)
Urine Albumin (Reflex) 3+ A
(Neg - Trace)
04/05/25 21:54
04/05/25 21:54
Vital Signs
Initial and Last Documented VS:
Initial Vital Signs
Temp Pulse Resp BP Pulse Ox
98.5 F 125 22 173/135 97
04/05/25 21:36 04/05/25 21:36 04/05/25 21:36 04/05/25 21:36 04/05/25 21:36
Last Documented Vital Signs
Temp Pulse Resp BP Pulse Ox
99 F 118 15 134/96 95
04/06/25 02:10 04/06/25 04:45 04/06/25 04:45 04/06/25 04:00 04/06/25 04:44
MDM/Problems Addressed
Differential Diagnosis Includes:
alcoholic gastritis, pancreatitis, biliary colic, diverticulitis, alcohol withdrawal
MDM/Problems Addressed:
This is a 44-year-old female with past medical history of hypertension, alcohol use disorder, anxiety, depression, pancreatitis, who presents emergency department today with concerns of abdominal pain, nausea, and vomiting. On physical exam, she
appears anxious and uncomfortable. She is afebrile. She has left sided abdominal tenderness to palpation. She has no signs of active GI bleeding. Her CT scan shows cirrhotic liver with trace amount of ascites and edema in the mesentery. Her LFTS and
T bili is elevated, however INR is normal. Platelets are low however no signs or symptoms of bleeding. Patient started to develop alcohol withdrawal symptoms in the ER requiring Ativan. Will refer for admission for alcohol withdrawal treatment as
well as abdominal pain in the setting of cirrhosis and liver failure. Case discussed with hospitalist.
Chronic conditions affecting care:
htn, asthma, anxiety
*Pulse Oximetry
SaO2: 97
Oxygen Mode of Delivery: Room air
Patient hypoxic: no
*Critical Care Note
Total Time (30-74mins, 75-104mins- exclusive of procedures): Not Applicable
ED Attending Note
-
Portions of this chart may have been created with voice recognition software.� Occasional wrong word or��sound alike� substitutions may have occurred due to the inherent limitations of voice recognition software.
Discharge Plan
Departure
Patient Disposition: Admit
Date of Disposition: 04/06/25
Time of Disposition: 04:42
Admit to: Med/Surg
Presentation/result/management discussed w/ accepting MD/DO: Hospitalist
Condition: Fair
Discharge Problem:
Alcohol withdrawal, Liver failure, Abdominal pain
Interventions
Interventions:
*Risk Screen - Suicide Last Done: 04/05/25 21:36
*General Assessment Last Done: 04/05/25 21:36
*Neglect/Abuse Screening Last Done: 04/05/25 21:36
*ED- Fall Risk Assessment Last Done: 04/06/25 01:13
*ED COVID-19 Vaccine History Last Done: 04/06/25 01:13
ID-Uiepol-Cngoitkdfh Assessment Last Done: 04/06/25 04:44
ED- Neurological Assessment Last Done: 04/06/25 04:44
ED-Psychological Assessment Last Done: 04/06/25 04:44
[2025-04-05 23:55] VITALS: BP 148/94
[2025-04-06] VITALS (11 sets, daily range): BP systolic 99–169; BP diastolic 55–106; BMI 29.3; BMI 27.5
[2025-04-06] MEDS: LR 1000 IV ×2 (00:28→08:58)
[2025-04-06] MEDS: DILAUDID 0.5 MG IV ×6 (00:30→21:55)
[2025-04-06] MEDS: PROTONIX IV 80 MG IV (00:30)
[2025-04-06] MEDS: ZOFRAN 4 MG IV ×2 (00:30→15:56)
[2025-04-06 01:09] LABS: Urine Character Slightly Cloudy (Clear)
[2025-04-06 01:32] LABS: Urine Squamous Cell >30 /LPF (Few)
[2025-04-06 01:52] LABS: INR 1.28; PT 16.3 Sec (11.4-14.6)
[2025-04-06] MEDS: ATIVAN 2 MG IV ×2 (02:12→03:49)
[2025-04-06] MEDS: LR 500 IV (04:54)
--- NOTE | 2025-04-06 05:09 | HPS.HSE ---
Family Physician
-
Family Physician: NOT KNOW UNKNOWN - PT DOES
Chief Complaint
-
Abdominal pain
History of Present Illness
This is a 44-year-old female with past medical history significant for alcohol use disorder, alcohol withdrawal, gastritis, presenting to the emergency department with intractable abdominal pain and nausea and vomiting.
In the emergency department patient was tachycardic to 110, afebrile, blood pressure 134/96. She was satting 95% on room air.
Labs notable for a platelet count of 50, INR 1.28. Electrolytes were within the normal range, BUN/creatinine were normal and glucose was 143. Total bilirubin was elevated to 5.1, AST 380 and ALT 80 with lipase of 375. UA was unremarkable.
CT of the abdomen pelvis showing liver cirrhosis, severe fatty liver, trace amount of ascites and edema in the mesentery. There are varices and mild splenomegaly.
Medical History
Past Medical History
Past Medical History: Reports Other (anxiety/depression, alcohol use disorder)
Past Surgical History: Reports None
Social History
Tobacco: Vaping
Alcohol: Occasional
Drug: None
Family History
Family History: Not pertinent
Allergies / Home Medications
Allergies reflects when Allergies were last updated in [facility].
Home Medications with original date entered in [facility]
Allergy/Medication List:
Allergies
Allergy/AdvReac Type Severity Reaction Status Date / Time
lavender (Lavandula Allergy Hives Verified 05/29/23 08:15
angustifolia)
morphine Allergy Hives Verified 05/29/23 08:15
Home Medications
cetirizine 10 mg tablet (Zyrtec) 10 mg PO DAILY 05/29/23
albuterol sulfate 90 mcg/actuation aerosol inhaler 2 puff inhalation R Q6HPRN PRN sob/wheezing 08/14/23
diphenhydramine HCl 25 mg capsule (Benadryl) 50 mg PO HS 08/14/23
ondansetron 4 mg disintegrating tablet 4 mg PO Q8HPRN PRN nausea/vomiting 08/14/23
Review of Systems
-
Constitutional: Reports No Symptoms
EENT: Reports No Symptoms
Respiratory: Reports No Symptoms
Cardiac: Reports No Symptoms
Abdomen/GI: Reports Abdominal Pain, Nausea and Vomiting
: Reports No Symptoms
Musculoskeletal: Reports No Symptoms
Skin: Reports No Symptoms
Neurological: Reports No Symptoms
Endocrine: Reports No Symptoms
Hematologic/Lymphatic: Reports No Symptoms
Psych: Reports No Symptoms
Physical Exam
Vital Signs
Vital Signs
Temp Pulse Resp BP Pulse Ox
99 F 118 15 134/96 95
04/06/25 02:10 04/06/25 04:45 04/06/25 04:45 04/06/25 04:00 04/06/25 04:44
Physical Exam
General: Well Developed, Well Nourished and No Apparent Distress
HEENT: NormoCephalic, Moist mucous membranes and Atraumatic
Respiratory: Clear
Cardiac: S1/S2 and Regular Rhythm; No Murmur or Rub
GI: Soft, Non Tender, Non Distended and Normal Bowel Sounds; No Organomegaly
Rectal: Deferred by Provider
Musculoskeletal: No Clubbing, No Cyanosis and No Edema
Skin: No Rash
Neuro: Nonfocal/grossly intact
Laboratory Results
-
04/05/25 21:54
04/05/25 21:54
Laboratory Results
PT 16.3 Sec (11.4-14.6) H 04/06/25 01:33
INR 1.28 04/06/25 01:33
Total Bilirubin 5.1 mg/dl (0.2-1.3) H 04/05/25 21:54
AST 379 U/L (14-36) H 04/05/25 21:54
ALT 79 U/L (0-35) H 04/05/25 21:54
Alkaline Phosphatase 254 U/L (38-126) H 04/05/25 21:54
Lipase 375 U/L (23-300) H 04/05/25 21:54
Data Reviewed
-
CT Scan: Report Reviewed by me
Lab Data: Labs Reviewed by me
Old Records: Reviewed
Impression/Plan
-
IMPRESSION:
43-year-old with alcohol use and abuse disorder presenting to the emergency department with abdominal pain nausea vomiting and found to be in alcohol withdrawal. Drinks about 750 mL of liquor daily with last drink at 7 PM on Sunday. Symptoms began
with abdominal pain and nausea and vomiting soon afterwards but patient stated that his symptoms have actually been going on for a week. Since last alcohol use and within 12 hours patient developed withdrawal symptoms requiring 4 mg of Ativan.
Remains tachycardic. History of DT but no withdrawal seizures in the past. PAWS equals high risk. LFTs elevated T. bili 5.1 AST 379 ALT 79 and lipase recent 5 all consistent with acute on chronic alcohol hepatitis. There is also mild
pancreatitis with a lipase of 375. MELD score is 17, Jonoey DF = 13. Known cirrhosis and patient also reports known varices but no variceal bleeding. Mild ascites.
PLAN:
Alcohol withdrawal -in early onset of withdrawal within 12 hours of last alcohol use. Currently calm after greater than 4 mg of Ativan. Remains tachycardic in the low 110s.
-Admit to IMU, high risk for severe withdrawal
-Start IV phenobarbital taper
-Msas protocol with IV Ativan
-Thiamine, folate, LR
Alcohol hepatitis -acute elevation in Tbili, AST/ALT w/ ratio c/w etoh hepatitis. Maddrey DF 13, MELD score 17. No biliary obstruction.
- No indication for glucocorticoids
- No encephalopathy
- trend lfts for now
Pancreatitis
- Mild, pain control and IV fluid
Gastritis -no varices seen on CT scan, no known history of. MELD score 17 with trace ascites
-Clear liquid diet
-PPI IV twice daily
-Pain control and antiemetics
-GI consultation
DVT prophylaxis�heparin subcu for now
CODE STATUS�full code
[2025-04-06] MEDS: PHENOBARBITAL 104 MG IV (07:27)
--- NOTE | 2025-04-06 08:27 | CM ---
CM consult received. Chart reviewed, I met with pt and her bedside in ED.
Lives with and daughter in 2 story home, [address].
Independent at baseline, drives. No DME.
Pt offered [facility] referral but declines at this time. Is aware CM will follow up when admitted.
Pt has been to [facility] for Inpatient treatment in the past and received Outpatient services from [facility] last year. Not currently receiving services.
PCP: Mariola Overton
Pharmacy: [facility].
Discharge plan: CM will continue to follow for discharge planning needs.
[2025-04-06] MEDS: HEPARIN 5000 UNITS SC ×3 (08:46→23:08)
[2025-04-06] MEDS: THIAMINE INJECTION 200 MG IV ×3 (08:47→23:08)
[2025-04-06] MEDS: FOLVITE 1 MG PO (08:47)
--- NOTE | 2025-04-06 09:54 | PHANOTE ---
Med History Collection
Spoke with patient about her medications today. List below:
Carvedilol 3.125 mg PO BID (patient did not remember dose, last fill December 2024 for 30-day supply)
Cetirizine 10 mg PO daily
Tretinoin 0.025% cream topical to ezcema BID (prescribed daily)
Secondary to patient interview, suspect non-compliance with prescribed therapy.
--- NOTE | 2025-04-06 10:45 | CON.GI ---
Consultation
-
Date/Time Consultation Requested: 04/06/25
Date/Time Consultation Performed: 04/06/25
Requesting Provider: Tess Zavala
Performing Provider: Marilu Mathis
Reason for Consultation: Alcohol hepatitis
Medical History
Chief Complaint / HPI
Chief Complaint: N/V, abdominal pain
History of Present Illness:
Avani Park is a 44-year-old female with past medical history of alcohol cirrhosis, alcohol pancreatitis, anxiety, depression who presents with nausea, vomiting and abdominal pain in the setting of heavy alcohol use. Last beverage was last night at
7 PM. She drinks about 150 mL of vodka daily. Overall clinical picture consistent with alcohol hepatitis. She does not follow with GI/hepatology as outpatient. She denies any hematemesis or melena. Her last endoscopy was in 2022 at [facility]
with subjective gastritis
WBC 4.3, Hgb 11.4, Plt 50, BUN 4/Cr. 0.5, Tbili 5.1, AST 379, ALT 79, Alk phos 254, Lipase 375
UDS +benzos
04/06/25 CT A/P: Progressive hepatomegaly and parenchymal changes, consistent with progressive fatty infiltration and cirrhosis. Evidence of portal hypertension, with stable splenomegaly and splenorenal portosystemic venous collaterals as well as
recanalization of the paraumbilical vein. No ascites.
04/09/24 CT a/p
1. Hepatomegaly and portal hypertension with splenomegaly and recanalization of the umbilical vein. No definitive cirrhotic changes of the liver at CT, however the liver shows diffuse heterogeneous enhancement as above. While this can be seen in
association with hepatitis, it is suspicious for a perfusion anomaly. As on the prior study, predominantly low attenuation of the hepatic parenchyma related to fatty infiltration. Portal veins are patent. As above, hepatic veins are not well seen.
Evaluation of this is limited secondary to single portal venous phase acquisition. These findings could be further evaluated with follow-up abdominal MRI or ultrasound with Doppler evaluation.
2. Mild peripancreatic stranding suggesting possible pancreatitis. This is less pronounced as compared with the prior examination.
04/11/24 doppler US
Doppler evaluation shows normal flow and direction of flow in the hepatic veins, and portal veins except for the right portal vein which is not visualized.
The umbilical vein is recanalized.
Social History
Tobacco: Vaping
Alcohol: Daily
Drug: None
Family History
Family History: Reviewed & Not Pertinent
Allergies / Home Medications
Allergy/AdvReac Type Severity Reaction Status Date / Time
lavender (Lavandula Allergy Hives Verified 04/06/25 01:19
angustifolia)
morphine Allergy Hives Verified 04/06/25 01:19
�Medication �Instructions �Recorded
cetirizine 10 mg tablet (Zyrtec) 10 mg PO DAILY Allergies 05/29/23
carvedilol 3.125 mg tablet 3.125 mg PO BID 04/06/25
tretinoin 0.025 % topical cream 1 applic topical .SEE BELOW eczema 04/06/25
Review of Systems
-
All other systems: A 12 pt ROS was Negative except as stated above in HPI
Vital Signs
Temp Pulse Resp BP Pulse Ox
99 F 111 16 149/106 91
04/06/25 02:10 04/06/25 09:00 04/06/25 09:00 04/06/25 09:00 04/06/25 05:08
Physical Exam
Exam
General: No Apparent Distress, Comfortable and Other
GI: Soft, Non Distended, Normal Bowel Sounds and Other (mildly TTP in epigastrium)
Results
WBC 4.3 10^3/uL (4.8-10.8) L 04/05/25 21:54
Hgb 11.4 g/dL (12.0-16.0) L 04/05/25 21:54
Hct 33.1 % (37.0-47.0) L 04/05/25 21:54
MCV 85.3 fL (81.0-99.0) 04/05/25 21:54
Plt Count 50 10^3/uL (130-400) L 04/05/25 21:54
Absolute Neuts (auto) 2.4 10^3/uL (1.4-6.5) 04/05/25 21:54
PT 16.3 Sec (11.4-14.6) H 04/06/25 01:33
INR 1.28 04/06/25 01:33
Sodium 143 mmol/L (135-145) 04/05/25 21:54
Potassium 4.1 mmol/L (3.5-5.1) 04/05/25 21:54
Chloride 104 mmol/L (98-107) 04/05/25 21:54
Carbon Dioxide 22 mmol/L (22-30) 04/05/25 21:54
BUN 4 mg/dl (7-17) L 04/05/25 21:54
Creatinine 0.5 mg/dL (0.6-1.0) L 04/05/25 21:54
Calcium 9.0 mg/dl (8.4-10.2) 04/05/25 21:54
Total Bilirubin 5.1 mg/dl (0.2-1.3) H 04/05/25 21:54
AST 379 U/L (14-36) H 04/05/25 21:54
ALT 79 U/L (0-35) H 04/05/25 21:54
Alkaline Phosphatase 254 U/L (38-126) H 04/05/25 21:54
Lipase 375 U/L (23-300) H 04/05/25 21:54
Diagnostic Image Results:
Prior GI Procedures:
EGD:
Colonoscopy:
Assessment / Plan
-
44 y.o. female with etoh cirrhosis admitted with N/V/abdominal pain found to have alcohol hepatitis.
MELD 17, DF 13
A/P:
-no role for steroids
-supportive care
-IVF, thiamine, folate
-monitor sodium and glucose levels
-no signs of encephalopathy on exam
-ultimately, needs alcohol cessation and regular GI/hepatology follow-up for HCC screening q6 months, which I discussed with her.
GI will sign off, please call with questions.
Data Reviewed
-
Radiology: Report Reviewed by me
CT Scan: Report Reviewed by me
Ultrasound: Report Reviewed by me
Old Records: Reviewed
-
-
Thank you for consultation and allowing me to participate in the patient's care. Please call the moving consultant GI physician during the after hours with any questions or concerns.
[2025-04-06] MEDS: PROTONIX IV 40 MG IV ×2 (11:28→19:48)
[2025-04-06] MEDS: NSS (PRESERVATIVE FREE) 10 ML IV ×2 (11:29→19:47)
[2025-04-06] MEDS: ATIVAN 1 MG PO (11:37)
--- NOTE | 2025-04-06 14:27 | W.PN.HOSP.TC ---
Addendum entered and electronically signed by Bao Quinteros MD 04/06/25 21:58:
Attending Addendum-
I saw and evaluated the patient. I reviewed the resident�s note and agree with findings and plan as documented in the resident�s note. Sub: Seen in ED. Feels terrible. Complains if tremors nausea and palpitations. Denies fevers chills. Seen with
present. Full 12 point ROS reviewed and negative except as documented Exam: Vitals reviewed in chart GEN-mild distress heart tachycardic lungs CTA B/L Abd ND ND pos BS LE no edema
Plan:
# AUD with withdrawal
-stable for transfer to med surg
-cont IV phenobarbital taper
-cont MSAS protocol @ 4
-Thiamine, folate, LR
-c/s BCARES
-advised to remain abstinent
#Alcohol hepatitis -
MELD 17, DF 13 No biliary obstruction.
- No indication for glucocorticoids
- No encephalopathy
- CT A/P 04/06-Progressive hepatomegaly and parenchymal changes, consistent with progressive fatty infiltration and cirrhosis. Evidence of portal hypertension, with stable splenomegaly and splenorenal portosystemic venous collaterals as well as
recanalization of the paraumbilical vein. No ascites.
- trend lfts
- appreciate GI input
# Pancytopenia
- from ETOH abuse
- cont to trend
# Elevated Lipase
- Mild, pain control and IV fluid
# Gastritis
-Clear liquid diet
-PPI IV twice daily
-Pain control and antiemetics
-GI consultation
# HTN
- cont coreg
DVT prophylaxis�heparin subcu monitor plts
CODE STATUS�full code
Dispo DC to IP rehab if able
Time spent coordinating care, review of plan of care with resident, personally reviewed records in EMR, med rec, consults, notes, labs, radiology, d/w nursing and POA � 52 mins
Original Note:
Today's Communication/Plan
-
C/w Phenobarb taper, MSAS, prn ativan, antiemetics, pain medication, IVF
BCARES to see
Assessment / Plan
Assessment / Plan
44 year old F PMHx of alcohol use disorder, gastritis, asthma, hypertension, seasonal allergies who presented for 24 hours of worsening abdominal pain, nausea, vomiting.
#Acute EtOH Withdrawal
#Nausea
#Vomiting
- last drink was 7pm day of admission; normally drinks 750ml of vodka per day; no h/o DTs or withdrawal seizures
- c/w MSAS protocol and prn Ativan
- c/w Thiamine/Folate supplementation
- on Phenobarbital taper
- BCARES notified
- c/w IVF, antiemetics, IV pain medication as needed
- advance diet as tolerated, currently CLD
#Alcoholic Hepatitis
#CT Evidence of Cirrhosis/AFLD
#Portal Hypertension
#Hepatosplenomegaly
- Acute abdominal pain, n/v, elevated transaminases AST/ALT >2:1
- No active variceal bleeding; no varices appreciated on Physical exam
- c/t monitor CMP
- MELD Score 15, Maddrey's Discriminant Function 24
- encourage Alcohol cessation -- BCARES to see
#Anemia, likely chronic, multifactorial
#Thrombocytopenia
#Hyperbilirubinemia
- c/t monitor CBC
- no signs of active bleeding
- transfuse if hgb <7 or platelets <50,000
#Essential HTN
- c/w Carvedilol with holding parameters for SBP <90
GI PPx: Protonix IV BID
DVT PPx: Heparin SC
Code Status: Full Code
Anticipated Discharge: 24 - 48 hours
Subjective/Interval History
-
Date of Service: April 06, 2025
Feeling about the same, pain and nausea improved with medication but she reports being drowsy from Ativan. No new seizures, a/v hallucinations, tremors, fevers, chills, n/v.
Objective Data
-
Vital Signs:
Vital Signs
Temp Pulse Resp BP Pulse Ox
99 F 111 18 149/106 91
04/06/25 02:10 04/06/25 14:00 04/06/25 14:00 04/06/25 09:00 04/06/25 05:08
Review of Systems
-
History Source: Patient
All other systems: Reviewed and negative
Constitutional: Reports No Symptoms
EENT: Reports No Symptoms Reported
Respiratory: Reports No Symptoms
Cardiac: Reports No Symptoms
Abdomen/GI: Reports Abdominal Pain and Nausea; Denies Vomiting, Diarrhea, Bloody Stools or Black Stools
Breast: Reports No Symptoms
Genitourinary: Reports No Symptoms
Musculoskeletal: Reports No Symptoms
Skin: Reports No Symptoms
Neuro: Reports No Symptoms
Endocrine: Reports No Symptoms
Hematologic / Lymphatic: Reports Bruising
Allergy / Immunology: Reports No Symptoms
Physical Exam
-
General: Well Developed, Well Nourished and No Apparent Distress
HEENT: Normocephalic, Atraumatic, Moist Mucous Membranes, Anicteric, [place] Conjunctivae, PERRLA, Nose Appears Normal and Ears Appear Normal
Respiratory: Clear to Auscultation; Negative Wheezes, Rales or Rhonchi
Cardiac: Regular Rhythm and S1/S2; Negative Murmur, Rub or Gallop
GI: Other (Tender to light and deep palpation, worse in epigastric and LUQ. No appreciable fluid wave. Slightly distended and tympanitic abdomen. )
Rectal: Deferred by Provider
Genito-urinary: Costovertebral Angle Tend (L side costovertebral angle tenderness, none on the R. )
Musculoskeletal: No Clubbing, No Cyanosis and No Edema
Skin: Warm, Dry and IV Access / Catheter Site; Negative Rash, Lesions or Jaundice
Neuro: AO x 3
[2025-04-06] MEDS: ULTRAM 50 MG PO (15:57)
[2025-04-06] MEDS: PHENOBARBITAL 97.5 MG IV ×2 (16:13→21:54)
[2025-04-06] MEDS: COREG 3.125 MG PO (19:49)
[2025-04-07] MEDS: ZOFRAN 4 MG IV ×2 (03:57→17:11)
[2025-04-07] MEDS: DILAUDID 0.5 MG IV (03:57)
[2025-04-07] MEDS: ATIVAN 1 MG PO (03:58)
[2025-04-07 07:00] LABS: Hematocrit 29.2 % (37.0-47.0); Hemoglobin 9.6 g/dL (12.0-16.0); Mean Corp Hgb Conc. 32.9 g/dL (33.0-37.0); Mean Corpuscular Volume 87.7 fL (81.0-99.0); Red Cell Dist. Width 19.9 % (11.5-14.5)
--- NOTE | 2025-04-07 07:22 | W.PN.HOSP.TC ---
Addendum entered and electronically signed by Bao Quinteros MD 04/08/25 09:35:
Attending Addendum-
I saw and evaluated the patient. I reviewed the resident�s note and agree with findings and plan as documented in the resident�s note. Sub: feels fatigued and sleepy. Less tremulous. Denies fevers chills. Still with poor appetite, complains of
palpitations. Full 12 point ROS reviewed and negative except as documented Exam: Vitals reviewed in chart GEN-mild distress heart tachycardic lungs CTA B/L Abd ND ND pos BS LE no edema
Plan:
# AUD in withdrawal
-cont IV phenobarbital taper
-cont MSAS protocol- @ 4
-Thiamine, folate, MVI
-c/s BCARES
-advised to remain abstinent
-start prn clonidine
#Alcohol hepatitis with hyperbilirubinemia
- No indication for glucocorticoids
- No encephalopathy
- CT A/P 04/06-Progressive hepatomegaly and parenchymal changes, consistent with progressive fatty infiltration and cirrhosis. Evidence of portal hypertension, with stable splenomegaly and splenorenal portosystemic venous collaterals as well as
recanalization of the paraumbilical vein. No ascites.
- trend lfts decreasing
- increased t bili
- appreciate GI input
- check abd US
# Pancytopenia
- trending down
- from ETOH abuse likely
- SPEP pend
- transfuse for PLT < 20 or if bleeding, and HB<7
# Elevated Lipase
- Mild, pain control and IV fluid
# Gastritis
-Clear liquid diet
-PPI IV twice daily
-Pain control and antiemetics
# HTN
- cont coreg
DVT prophylaxis�heparin subcu monitor plts
CODE STATUS�full code
Dispo DC to home with IOP likely- patient refusing IP etoh rehab
Time spent coordinating care, review of plan of care with resident, personally reviewed records in EMR, med rec, consults, notes, labs, radiology, d/w nursing � 51 mins
Original Note:
Today's Communication/Plan
-
ADAT, encourage PO intake
C/w prn pain meds, antiemetics
MSAS, Thiamine/folate
try prn clonidine
Abd US ordered
encourage alcohol cessation -- CHANG revisit
Assessment / Plan
Assessment / Plan
44 year old F PMHx of alcohol use disorder, gastritis, asthma, hypertension, seasonal allergies who presented for 24 hours of worsening abdominal pain, nausea, vomiting.
#Acute EtOH Withdrawal
#Nausea
#Vomiting
- last drink was 7pm day of admission; normally drinks 750ml of vodka per day; no h/o DTs or withdrawal seizures
- c/w MSAS protocol and prn Ativan
- c/w Thiamine/Folate supplementation
- on Phenobarbital taper
- BCARES notified
- c/w IVF, antiemetics, IV pain medication as needed
- advance diet as tolerated, currently CLD
- Check mag/phos
- Clonidine 01mg added prn for htn/tachycardia
#Hyponatremia
- na on admission 143, patient was dehydrated and likely hemoconcentrated
- Na now 132 s/p 2.5L LR, prior Na from hospitalizations around 132-133
- may reflect a more accurate baseline, more likely beer potomania in the setting of significant alocohol use disorder
- will c/t monitor CMP
#Alcoholic Hepatitis
#CT Evidence of Cirrhosis/AFLD
#Portal Hypertension
#Hepatosplenomegaly
- Acute abdominal pain, n/v, elevated transaminases AST/ALT >2:1
- No active variceal bleeding; no varices appreciated on Physical exam
- c/t monitor CMP
- MELD Score 15, Jenifer's Discriminant Function 24
- Abd US complete ordered.
#Alcohol Use Disorder
- encourage Alcohol cessation -- CHANG spoke to her but she said she was half asleep, hopefully will come again to speak to her
#Pancytopenia
#Hyperbilirubinemia
- c/t monitor CBC
- no signs of active bleeding
- transfuse if hgb <7 or platelets <30,000 or <50,000 and actively bleeding.
- SPEP ordered, results pending.
#Essential HTN
- c/w Carvedilol with holding parameters for SBP <90
GI PPx: Protonix IV BID
DVT PPx: Heparin SC
Code Status: Full Code
Anticipated Discharge: 24 - 48 hours
Subjective/Interval History
-
Date of Service: April 07, 2025
Feeling a bit better, still groggy from Phenobarb/Ativan. Needed Ativan ON for MSAS of 5. Intermittent Nausea but no new vomiting, diarrhea, fevers chills. Pain is well controlled. Able to tolerate liquids but has no appetite and has not eaten
anything.
Objective Data
-
Labs:
Laboratory Results
04/07/25
06:21
WBC 2.5 L
Hgb 9.6 L
Hct 29.2 L
Plt Count Pending
Sodium Pending
Potassium Pending
Chloride Pending
Carbon Dioxide Pending
BUN Pending
Creatinine Pending
Glucose Pending
Calcium Pending
Total Bilirubin Pending
AST Pending
ALT Pending
Alkaline Phosphatase Pending
Vital Signs:
Vital Signs
Temp Pulse Resp BP Pulse Ox
98.5 F 96 16 150/94 95
04/06/25 23:18 04/06/25 23:18 04/06/25 23:18 04/06/25 23:18 04/06/25 23:18
Review of Systems
-
History Source: Patient
Constitutional: Reports Fatigue
EENT: Reports No Symptoms Reported
Respiratory: Reports No Symptoms
Cardiac: Reports No Symptoms
Abdomen/GI: Reports Abdominal Pain and Nausea; Denies Vomiting, Diarrhea or Hematemesis
Genitourinary: Reports No Symptoms
Musculoskeletal: Reports No Symptoms
Skin: Reports No Symptoms
Neuro: Reports No Symptoms
Endocrine: Reports No Symptoms
Hematologic / Lymphatic: Reports No Symptoms
Allergy / Immunology: Reports No Symptoms
Physical Exam
-
General: Well Developed and Well Nourished
HEENT: Normocephalic, Atraumatic, Moist Mucous Membranes, Anicteric, [place] Conjunctivae, No Ptosis, PERRLA, Nose Appears Normal and Ears Appear Normal
Respiratory: Clear to Auscultation; Negative Wheezes, Rales or Rhonchi
Cardiac: Regular Rhythm and S1/S2; Negative Murmur or Rub
Breast: Deferred by me
GI: Tender and Distended
Genito-urinary: Costovertebral Angle Tend (minimal L sided, improved from yesterday)
Musculoskeletal: No Clubbing, No Cyanosis and No Edema
Skin: Warm and Dry
Neuro: AO x 3
[2025-04-07 07:40] VITALS: BP 149/98
[2025-04-07 07:41] LABS: Platelet Count 31 10^3/uL (130-400)
[2025-04-07] MEDS: COREG 3.125 MG PO ×2 (07:52→23:19)
[2025-04-07] MEDS: HEPARIN 5000 UNITS SC ×3 (07:52→23:22)
[2025-04-07] MEDS: PHENOBARBITAL 97.5 MG IV ×3 (07:53→21:01)
[2025-04-07] MEDS: NSS (PRESERVATIVE FREE) 10 ML IV ×2 (07:54→21:02)
[2025-04-07] MEDS: THIAMINE INJECTION 200 MG IV ×3 (07:55→23:22)
[2025-04-07] MEDS: FOLVITE 1 MG PO (07:55)
[2025-04-07] MEDS: PROTONIX IV 40 MG IV ×2 (07:55→21:01)
[2025-04-07 08:44] VITALS: BMI 27.0
[2025-04-07 09:10] LABS: ALT (SGPT) 53 U/L (0-35); AST (SGOT) 183 U/L (14-36); Albumin 4.3 g/dl (3.5-5.0); Alkaline Phosphatase 212 U/L (38-126); Blood Urea Nitrogen 7 mg/dl (7-17); Calcium 8.3 mg/dl (8.4-10.2); Carbon Dioxide 24 mmol/L (22-30); Chloride 97 mmol/L (98-107); Estimated Creatinine Clearance 100 ml/min; Glucose 86 mg/dl (70-99); Magnesium 1.6 mg/dl (1.6-2.3); Potassium 4.0 mmol/L (3.5-5.1); Sodium 132 mmol/L (135-145); Total Protein 8.7 g/dl (6.3-8.2); eGFR > 60.00
--- NOTE | 2025-04-07 14:37 | CM ---
Patient seen at bedside.
Accepting of BCARES
CM left message with Alba
spoke with Sukhwinder from [facility] and will have Trent follow-up
PLAN: [facility] to follow up with patient
[2025-04-07 15:00] VITALS: BP 127/79
[2025-04-07] MEDS: DILAUDID 0.25 MG IV (21:39)
[2025-04-07 23:01] VITALS: BP 124/84
[2025-04-08 07:00] VITALS: BP 127/86
[2025-04-08 07:52] LABS: Hematocrit 26.0 % (37.0-47.0); Hemoglobin 8.8 g/dL (12.0-16.0); Mean Corp Hgb Conc. 33.8 g/dL (33.0-37.0); Mean Corpuscular Volume 87.2 fL (81.0-99.0); Platelet Count 37 10^3/uL (130-400); Red Cell Dist. Width 20.2 % (11.5-14.5)
[2025-04-08 08:15] LABS: ALT (SGPT) 41 U/L (0-35); AST (SGOT) 139 U/L (14-36); Albumin 4.0 g/dl (3.5-5.0); Alkaline Phosphatase 196 U/L (38-126); Blood Urea Nitrogen 7 mg/dl (7-17); Calcium 8.5 mg/dl (8.4-10.2); Carbon Dioxide 24 mmol/L (22-30); Chloride 98 mmol/L (98-107); Estimated Creatinine Clearance 100 ml/min; Glucose 92 mg/dl (70-99); Potassium 3.5 mmol/L (3.5-5.1); Sodium 133 mmol/L (135-145); Total Protein 8.1 g/dl (6.3-8.2); eGFR > 60.00
[2025-04-08] MEDS: NSS (PRESERVATIVE FREE) 10 ML IV (08:40)
[2025-04-08] MEDS: HEPARIN 5000 UNITS SC (08:41)
[2025-04-08] MEDS: PROTONIX IV 40 MG IV (08:41)
[2025-04-08] MEDS: PHENOBARBITAL 97.5 MG IV (08:42)
[2025-04-08] MEDS: THIAMINE INJECTION 200 MG IV (08:44)
[2025-04-08] MEDS: FOLVITE 1 MG PO (08:45)
[2025-04-08] MEDS: COREG 3.125 MG PO (08:45)
--- NOTE | 2025-04-08 09:28 | W.PN.HOSP.TC ---
Addendum entered and electronically signed by Bao Quinteros MD 04/08/25 23:26:
Attending Addendum-
I saw and evaluated the patient. I reviewed the resident�s note and agree with findings and plan as documented in the resident�s note. Sub: feels sleepy but much improved. Denies fevers chills. appetite improved. wants to go home. refusing IP etoh
rehab. 'Ill go as OP' Full 12 point ROS reviewed and negative except as documented Exam: Vitals reviewed in chart GEN-mild distress heart RRR lungs CTA B/L Abd ND ND pos BS liver palp 3 cm below costal margin LE no edema
Plan:
# AUD high risk withdrawal
-cont phenobarbital taper as OP
-cont MSAS protocol- @1
-Thiamine, folate, MVI
-c/s BCARES
-advised to remain abstinent
-prn clonidine
-refusing IP rehab for etoh, OP therapy resources provided
#Alcohol hepatitis with hyperbilirubinemia
- No indication for glucocorticoids
- No encephalopathy
- CT A/P 04/06-Progressive hepatomegaly and parenchymal changes, consistent with progressive fatty infiltration and cirrhosis. Evidence of portal hypertension, with stable splenomegaly and splenorenal portosystemic venous collaterals as well as
recanalization of the paraumbilical vein. No ascites.
- lfts decreasing
- increased t bili
- appreciate GI input
- check abd US-normal appearance of the gallbladder with no evidence for biliary ductal dilation.
Hepatomegaly with diffuse fatty infiltration.
Giovanni is made of recanalized umbilical vein as seen on recent CT.
Splenomegaly.
# Pancytopenia
- trending down
- from ETOH abuse likely
- SPEP pend
- transfuse for PLT < 20 or if bleeding, and HB<7
- recommended close OP follow up
# Elevated Lipase
- Mild, pain control and IV fluid
# Gastritis
-Clear liquid diet
-PPI IV twice daily->PO
-Pain control and antiemetics
# HTN
- cont coreg
DVT prophylaxis�heparin subcu monitor plts
CODE STATUS�full code
Dispo DC to home with resources provided refusing IP ETOH tx
Time spent coordinating care, DC planning, review of DC plan of care with resident, transition of care, review of records, med rec/scripts sent electronically, consults, notes, d/w consultants, nursing, family, and CM� 31 mins >50% of this time was
devoted to counseling and coordination of care
Original Note:
Today's Communication/Plan
-
c/w IV antiemetics, thiamine/folate, MSAS protocol
Abd US today
follow up INR
Assessment / Plan
Assessment / Plan
44 year old F PMHx of alcohol use disorder, gastritis, asthma, hypertension, seasonal allergies who presented for 24 hours of worsening abdominal pain, nausea, vomiting.
#Acute EtOH Withdrawal
#Nausea
#Vomiting
- last drink was 7pm day of admission; normally drinks 750ml of vodka per day; no h/o DTs or withdrawal seizures
- c/w MSAS protocol and prn Ativan
- c/w Thiamine/Folate supplementation
- on Phenobarbital taper
- BCARES notified
- c/w IVF, antiemetics, IV pain medication as needed
- advance diet as tolerated, currently CLD
- Mg 1.6, Phos 3.2
- Clonidine 01mg prn for withdrawal symptoms/tachycardia, can try at night as well for agitation preventing sleep
#Hyponatremia
- na on admission 143, patient was dehydrated and likely hemoconcentrated
- Na now 132 s/p 2.5L LR, prior Na from hospitalizations around 132-133
- may reflect a more accurate baseline, more likely beer potomania in the setting of significant alcohol use disorder
- will c/t monitor CMP
#Alcoholic Hepatitis
#CT Evidence of Cirrhosis/AFLD
#Portal Hypertension
#Hepatosplenomegaly
- Acute abdominal pain, n/v, elevated transaminases AST/ALT >2:1
- No active variceal bleeding; no varices appreciated on Physical exam
- c/t monitor CMP, INR
- MELD Score 17, Jenifer's Discriminant Function 24
- Abd US complete pending
#Alcohol Use Disorder
- encourage Alcohol cessation -- BCARES spoke to her but she said she was half asleep, hopefully will come again to speak to her
#Pancytopenia
#Hyperbilirubinemia
- c/t monitor CBC
- no signs of active bleeding
- transfuse if hgb <7 or platelets <30,000 or <50,000 and actively bleeding.
- SPEP ordered, results pending.
#Essential HTN
- c/w Carvedilol with holding parameters for SBP <90
GI PPx: Protonix IV BID
DVT PPx: Heparin SC
Code Status: Full Code
Anticipated Discharge: 24 - 48 hours
Subjective/Interval History
-
Date of Service: April 08, 2025
Feeling a bit better this am. Attempted to drink iced tea yesterday but then had nausea so she stopped. No overnight events, has not needed any ativan. MSAS have been <3. She endorses poor sleep due to racing thoughts which is not new.
Objective Data
-
Labs:
Laboratory Results
04/08/25
07:16
WBC 2.3 L*
Hgb 8.8 L
Hct 26.0 L
Plt Count 37 L
Sodium 133 L
Potassium 3.5
Chloride 98
Carbon Dioxide 24
BUN 7
Creatinine 0.5 L
Glucose 92
Calcium 8.5
Total Bilirubin 8.8 H
AST 139 H
ALT 41 H
Alkaline Phosphatase 196 H
Vital Signs:
Vital Signs
Temp Pulse Resp BP Pulse Ox
98.8 F 96 17 127/86 97
04/08/25 07:00 04/08/25 08:45 04/08/25 07:00 04/08/25 08:45 04/08/25 07:00
I&O
04/07/25 04/08/25 04/09/25
06:59 06:59 06:59
Intake Total 500 / 500
Balance 500 / 500
Review of Systems
-
History Source: Patient
All other systems: Reviewed and negative
Constitutional: Reports No Symptoms
EENT: Reports No Symptoms Reported
Respiratory: Reports No Symptoms
Cardiac: Reports No Symptoms
Abdomen/GI: Reports Nausea; Denies Abdominal Pain, Vomiting, Diarrhea, Constipated or Bloody Stools
Breast: Reports No Symptoms
Genitourinary: Reports No Symptoms
Musculoskeletal: Reports No Symptoms
Skin: Reports No Symptoms
Neuro: Reports No Symptoms
Endocrine: Reports No Symptoms
Physical Exam
-
General: Well Developed, Well Nourished, No Apparent Distress, Comfortable, Appears Chronically Ill and Other (Jaundice)
HEENT: Normocephalic, Atraumatic, Moist Mucous Membranes, Anicteric, [place] Conjunctivae, PERRLA, Nose Appears Normal and Ears Appear Normal
Respiratory: Clear to Auscultation; Negative Wheezes, Rales or Rhonchi
Cardiac: Regular Rhythm and S1/S2; Negative Murmur, Rub or Gallop
GI: Soft, Nontender, Nondistended, Normal Bowel Sounds and Organomegaly (Nodular liver palpated 3cm below the costal border mid-clavicular. )
Genito-urinary: No Costovertebral Tender
Musculoskeletal: No Clubbing, No Cyanosis and No Edema
Skin: Warm, Dry and IV Access / Catheter Site
Neuro: AO x 3
Psych: Calm
[2025-04-08 11:06] LABS: INR 1.35; PT 17.2 Sec (11.4-14.6)
--- NOTE | 2025-04-08 13:26 | CM ---
Addendum entered by Majo Samuel 04/08/25 15:07:
PLAN: discharge today, to transport
n/a IMM - patient has resources from [facility] for outpatient rehab
Original Note:
Patient chart reviewed
Abd US today
Alba from [facility] visited patient and patient does not want inpatient alcohol rehab, Alba gave patient resources for outpatient rehab.
PLAN: home, no needs when stable, resources given to patient from [facility] for outpatient rehab
[2025-04-08 15:00] VITALS: BP 101/74
--- NOTE | 2025-04-08 17:53 | W.DCSUMMARY ---
Addendum entered and electronically signed by Bao Quinteros MD 04/08/25 23:27:
Read, reviewed, and agree. See same day progress note for additional details. Patient requesting to change PCP. Info provided for residency clinic
Alex Quinteros MD
Original Note:
Documented by User: Quoc Mckinley MD, Resident 04/08/25 18:16
Discharge Summary
Discharge Data
Date of Admission: 04/06/25
Date of Discharge: 04/08/25
Total time spent discharging patient (in min): >30m
-
Pending Results: No
Additional Pending Results:
SPEP.
Hospital Course
Discharging Physician : Dr. Quoc Mckinley, Dr. Bao Quinteros
Disposition : Home
Primary care physician : Dr. Diana Thomas (card given for [facility] to change PCP at patient request)
Principal Discharge diagnosis : Acute Alcohol Withdrawal, Alcoholic Hepatitis, Hyperbilirubinemia
Chronic Discharge diagnosis : Alcohol Use Disorder, Pancytopenia, Essential Hypertension, Cirrhosis, AFLD, Portal Hypertension, Hepatosplenomegaly
Hospital Course :
44 year old F PMHx of alcohol use disorder, gastritis, asthma, hypertension, seasonal allergies who presented for 24 hours of worsening abdominal pain, nausea, vomiting.
#Acute EtOH Withdrawal
#Alcohol Use Disorder
#Nausea
#Vomiting
She presented to the ED with signs and symptoms of alcohol withdrawal, heavy drinking history of 750ml of vodka per day, high risk of withdrawal and withdrawal seizures, however no prior history of DTs. Started on Phenobarbital taper, given IV
thiamine/folate supplementation and kept on MSAS protocol with prn IV Ativan. IV zofran was given for nausea. She required a few doses of Ativan for MSAS scores >5. No DTs during admission. She was seen by in house [facility] counselling services. She
was given Clonidine 0.1mg prn for withdrawal symptoms. She was sent home to finish Phenobarbital taper and given 10 tablets of 0.1mg Clonidine for withdrawal symptoms. Reportedly will speak with outpatient services for Alcohol Cessation Counselling.
#Hyponatremia
Hemoconcentrated on admission with Na of 143, then s/p IVF resuscitation Na was 132. prior hospital records show Na baseline around 132-133 -- more consistent with beer potomania. No prior outpatient labs to compare. Encouraged PO intake. Will
follow up as OP with CMP.
#Alcoholic Hepatitis
#CT Evidence of Cirrhosis/AFLD
#Portal Hypertension
#Hepatosplenomegaly
Significant liver disease secondary to chronic alcohol use disorder. She presented with abd pain, nausea, vomiting, and elevated transaminases AST/ALT >2:1 suggestive of alcoholic hepatitis. There were no varices of variceal bleeding. MELD score
calculated during admission was 17. Maddrey's Discriminant Function - 24. No steroids were given. Abd US ordered (full report below) did not show any additional acute intraabdominal process. She was ultimately cleared for discharge with PCP follow
up within 1 week for repeat CMP and GI follow up for continued hepatitis screening. Alcohol cessation encouraged as above.
#Pancytopenia
#Hyperbilirubinemia
She was pancytopenic on admission and remained so throughout. WBC ranged 2.3-4.3; no clinical suspicion for active infection. Hgb range 8.8 - 11.4; no signs of active bleeding. Plts 31-50k; no signs of active bleeding. No transfusions given.
Pancytopenia appears to be chronic from prior hospital records, likely secondary to chronic alcohol intake. SPEP was ordered, but results not back during admission. Close follow up with Dr. Thomas or [facility] if she so chooses.
#Essential HTN
Pressures stable throughout admission. Continued on home carvedilol without changes.
Important imaging findings :
CT Abd/pelvis W Iv Cont (04/06/2025):
IMPRESSION:
Progressive hepatomegaly and parenchymal changes, consistent with progressive fatty infiltration and cirrhosis. Evidence of portal hypertension, with stable splenomegaly and splenorenal portosystemic venous collaterals as well as recanalization of
the paraumbilical vein. No ascites.
No acute inflammatory process within the abdomen or pelvis.
No bowel obstruction.
No obstructive uropathy.
US Abdomen Complete/Upper (04/08/2025):
IMPRESSION:
Normal appearance of the gallbladder with no evidence for biliary ductal dilation.
Hepatomegaly with diffuse fatty infiltration.
Note is made of recanalized umbilical vein as seen on recent CT.
Splenomegaly.
The pancreas is unable to be visualized. Upper abdominal aorta is difficult to visualize.
Procedure findings :
None.
Discharge Plan
-
Patient Disposition: Home (Routine Discharge)
Discharge Diagnosis/Procedures: Acute Alcohol Withdrawal, Alcoholic Hepatitis, Hyperbilirubinemia
Condition: Good
Diet: As tolerated
Activity: No restrictions
Driving Restrictions: As prior to admission
Bathing Restrictions: None
Blood Work: Repeat CBC/CMP in 1 week
Referrals:
Daniela Mathis, [Active, Gastroenterology]
Referral Note: Schedule appointment for GI follow up
UNKNOWN - PT DOES,NOT KNOW [Family Provider]
Additional Discharge Medication Instructions: Call [phone] to schedule with the [facility] with Dr. Mckinley or any other provider.
[address] [place] [address]
[place] [address]
INSTRUCTIONS for PHENOBARBITAL TAPER:
Take two 32.4mg Tablets of Phenobarbital every 8 hours for 2 days, then
Take one 32.4mg Tablets of Phenobarbital every 8 hours, for 2 days, then stop.
Prescriptions:
New
phenobarbital 32.4 mg Tablet
32.4 mg PO TID 2 Days Qty: 6 0RF
phenobarbital 32.4 mg Tablet
64.8 mg PO TID 2 Days Qty: 12 0RF
clonidine HCl 0.1 mg tablet
0.1 mg PO Q8H PRN (Reason: alcohol withdrawal) Qty: 10 0RF
Continued
cetirizine [Zyrtec] 10 mg Tablet
10 mg PO DAILY
tretinoin 0.025 % cream
1 applic TOPICAL .SEE BELOW
Patient Comments:
Per patient, applying BID to eczema 'everywhere', prescribed daily
carvedilol 3.125 mg tablet
3.125 mg PO BID
Patient Comments:
Last fill December 2024 for 30-day supply
Discharge Orders:
Discharge Patient (As Directed); Ordered 04/08/25
Ordered By: Quoc Mckinley
Discharge Date and Time
Discharge Date/Time: 04/08/25 16:58
Print Language: SINHALA

Documented by User: Bao Quinteros MD 04/08/25 23:21
Discharge Summary
Discharge Data
Date of Admission: 04/06/25
Date of Discharge: 04/08/25
Discharge Plan
-
Patient Disposition: Home (Routine Discharge)
Discharge Diagnosis/Procedures: Acute Alcohol Withdrawal, Alcoholic Hepatitis, Hyperbilirubinemia
Condition: Good
Diet: As tolerated
Activity: No restrictions
Driving Restrictions: As prior to admission
Bathing Restrictions: None
Blood Work: Repeat CBC/CMP in 1 week
Referrals:
Daniela Mathis DO [Active, Gastroenterology]
Referral Note: Schedule appointment for GI follow up
UNKNOWN - PT DOES,NOT KNOW [Family Provider]
Additional Discharge Medication Instructions: Call [phone] to schedule with the [facility] with Dr. Mckinley or any other provider.
[address]
[place] [address]
INSTRUCTIONS for PHENOBARBITAL TAPER:
Take two 32.4mg Tablets of Phenobarbital every 8 hours for 2 days, then
Take one 32.4mg Tablets of Phenobarbital every 8 hours, for 2 days, then stop.
Prescriptions:
New
phenobarbital 32.4 mg Tablet
32.4 mg PO TID 2 Days Qty: 6 0RF
phenobarbital 32.4 mg Tablet
64.8 mg PO TID 2 Days Qty: 12 0RF
clonidine HCl 0.1 mg tablet
0.1 mg PO Q8H PRN (Reason: alcohol withdrawal) Qty: 10 0RF
Continued
cetirizine [Zyrtec] 10 mg Tablet
10 mg PO DAILY
tretinoin 0.025 % cream
1 applic TOPICAL .SEE BELOW
Patient Comments:
Per patient, applying BID to eczema 'everywhere', prescribed daily
carvedilol 3.125 mg tablet
3.125 mg PO BID
Patient Comments:
Last fill December 2024 for 30-day supply
Discharge Orders:
Discharge Patient (As Directed); Ordered 04/08/25
Ordered By: Quoc Mckinley
Discharge Date and Time
Discharge Date/Time: 04/08/25 16:58
Print Language: SINHALA
[2025-04-09 12:28] LABS: Albumin 3.60 g/dL (3.75-5.01); SPEP IFE Reflex IFE Done; Total Protein-Electrophoresis 7.2 g/dL (6.3-8.2)
== END 2025-04-08 16:58 | disposition home or self-care (01) | DRG 433 ==
LOC: 3 WEST ACU 05:14
PROVIDERS: Emergency Medicine; Physician Assistant; ADMITTING PHYSICIAN Internal Medicine; ATTENDING PHYSICIAN Family Medicine; CONSULT PHYSICIAN Internal Medicine; EMERGENCY PHYSICIAN Emergency Medicine
DX: K70.11 Alcoholic hepatitis with ascites (principal); D61.818 Other pancytopenia; F10.139 Alcohol abuse with withdrawal, unspecified; E87.1 Hypo-osmolality and hyponatremia; K76.6 Portal hypertension; F32.A Depression, unspecified; F41.9 Anxiety disorder, unspecified; I10 Essential (primary) hypertension; K70.31 Alcoholic cirrhosis of liver with ascites; J45.909 Unspecified asthma, uncomplicated; K70.40 Alcoholic hepatic failure without coma; K76.0 Fatty (change of) liver, not elsewhere classified; K29.70 Gastritis, unspecified, without bleeding; E86.0 Dehydration; L30.9 Dermatitis, unspecified; R16.2 Hepatomegaly with splenomegaly, not elsewhere classified; D64.89 Other specified anemias; D69.6 Thrombocytopenia, unspecified; Z88.5 Allergy status to narcotic agent; Z91.048 Other nonmedicinal substance allergy status
CPT/HCPCS: 74177; 76700; 80053; 80306; 80307; 81003; 81015; 82077; 82248; 82784; 83690; 83735; 84100; 84155; 84165; 84703; 85025; 85027; 85610; 86334; 86850; 86900; 86901; 87086; 96361; 96374; 96375; 99285; Q9967

== ENCOUNTER 2025-04-19 19:47 | Inpatient (IN) | payer BC, SELFPAY ==
[2025-04-19 15:24] VITALS: BP 150/77
[2025-04-19 16:06] LABS: ALT (SGPT) 52 U/L (0-35); AST (SGOT) 214 U/L (14-36); Albumin 4.1 g/dl (3.5-5.0); Alkaline Phosphatase 178 U/L (38-126); Blood Urea Nitrogen 3 mg/dl (7-17); Calcium 8.9 mg/dl (8.4-10.2); Carbon Dioxide 22 mmol/L (22-30); Chloride 108 mmol/L (98-107); Glucose 139 mg/dl (70-99); Lipase 125 U/L (23-300); Potassium 4.4 mmol/L (3.5-5.1); Sodium 142 mmol/L (135-145); Total Protein 8.7 g/dl (6.3-8.2); eGFR > 60.00
--- NOTE | 2025-04-19 16:14 | ED.GENMED ---
History of Present Illness
<Cortney Joyce PA-C - Last Filed: 04/19/25 19:15>
General
Chief Complaint: Abdominal Pain
Source: patient and records
Exam Limitations: none
Time Seen by Provider: 04/19/25 16:03
History of Present Illness
History of Present Illness:
44yoF with a history of alcohol use (drinks 750ml of [place]banse Isis/day, last drink 2 hours ago), cirrhosis, hypertension presenting with her for evaluation of abdominal pain. Patient was recently hospitalized from 04/06/25-04/08/25 for alcohol
withdrawal and alcoholic hepatitis. She started drinking again about 2 weeks ago. She started with severe pain in her upper abdomen yesterday. She is also experiencing nausea and had 6 episodes of vomiting today. The emesis appeared brown but
she denies seeing any blood. She also had a fever of 101 earlier today. Patient has a history of pancreatitis and this feels the same. She denies any symptoms of alcohol withdrawal currently.
Past History
<Cortney Joyce PA-C - Last Filed: 04/19/25 19:15>
Past History
ED Past Medical History: Psychiatric
ED Past Surgical History: None
Social History
Tobacco: Vaping
Alcohol: Chronic alcoholic (Last drink last PM. States she no longer drinks daily)
Drug: None
Personal:
Living: with family
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
Family History
Family History: Negative Early CAD
Phy Exam
<Cortney Joyce PA-C - Last Filed: 04/19/25 19:15>
Physical Exam
Physical Exam:
Chronically ill appearing. Appears uncomfortable, non-toxic
General Physical Exam
General Presentation: mild distress
General Skin: warm and dry
General Habitus: normal
General Mental: alert
ENT Exam
ENT Exam: normocephalic
Cardiovascular Exam
Cardiovascular Exam: tachycardia
Pulmonary Exam
Pulmonary Exam: lungs clear, no respiratory distress, no rales, no crackles and no rhonchi
Gastrointestinal Exam
Gastrointestinal Exam: soft, non distended and other (+Generalized tenderness with rebound. Ecchymosis noted to lower abdomen which patient reports has been present since last admission and is improving)
Neurological Exam
Neurological Exam: alert
[place] Coma Scale
Eye Opening: Spontaneous
Verbal Response: Oriented
Motor Response: Obeys Commands
GCS Total Score: 15
Skin Exam
Skin Exam: warm/dry
Psychiatric Exam
Psychiatric Exam: normal mood/affect
<Jess Amaya PA-C - Last Filed: 04/19/25 18:50>
[place] Coma Scale
GCS Total Score: 15
Course
<Cortney Joyce PA-C - Last Filed: 04/19/25 19:15>
Orders/Labs/Results
Orders:
Orders
04/19/25 15:37
Alcohol Urgent
Comprehensive Metabolic Panel Urgent
HCG, Serum Qualitative Screen Urgent
Comment: ADDON
Lipase Urgent
04/19/25 16:12
Electrocardiogram (*1) Urgent
Reason for Study: Abdominal Pain
Cardiac Monitoring- Treatment ONCE
EKG- Treatment ONCE
0.9% Sodium Chloride 500 ml [Nss] 500 ml IV BOLUS
HYDROmorphone [Dilaudid] 0.5 mg IV NOW STA
Ondansetron Injectable [Zofran] 4 mg IV NOW STA
Pantoprazole [Protonix IV] 40 mg IV NOW STA
04/19/25 16:14
CT Abd/pelvis W Iv Cont Urgent
Comment:
Reason For Exam: severe upper abd pain
04/19/25 16:17
CR Chest - 2 Views Urgent
Comment:
Reason For Exam: SOB
04/19/25 16:22
Complete Blood Count/With Diff Urgent
Lactate Level [Lactic Acid] Urgent
PTT Urgent
Prothrombin Time Urgent
Troponin I Urgent
04/19/25 16:45
Add On- LAB Urgent
Tests Added?: qualitative HCG
04/19/25 17:41
HYDROmorphone [Dilaudid] 0.5 mg IV NOW STA
04/19/25 18:02
0.9% Sodium Chloride 500 ml [Nss] 500 ml IV BOLUS
Abnormal Lab Results
04/19/25 04/19/25
15:37 16:22
RBC 3.36 L 10^6/uL
(4.20-5.40)
Hgb 9.7 L g/dL
(12.0-16.0)
Hct 29.8 L %
(37.0-47.0)
MCHC 32.6 L g/dL
(33.0-37.0)
RDW 20.4 H %
(11.5-14.5)
Absolute Monos (auto) 0.8 H 10^3/uL
(0.1-0.6)
Monocytes % 10.7 H %
(1.7-9.3)
PT 16.0 H Sec
(11.4-14.6)
APTT 37.0 H Sec
(23.4-35.0)
Chloride 108 H mmol/L
(98-107)
BUN 3 L mg/dl
(7-17)
Creatinine 0.4 L mg/dL
(0.6-1.0)
Glucose 139 H mg/dl
(70-99)
Lactic Acid 3.1 H mmol/L
(0.7-2.0)
Total Bilirubin 3.3 H mg/dl
(0.2-1.3)
AST 214 H U/L
(14-36)
ALT 52 H U/L
(0-35)
Alkaline Phosphatase 178 H U/L
(38-126)
Total Protein 8.7 H g/dl
(6.3-8.2)
04/19/25 16:22
04/19/25 15:37
Vital Signs
Initial and Last Documented VS:
Initial Vital Signs
Temp Pulse Resp BP Pulse Ox
98 F 122 18 150/77 98
04/19/25 15:24 04/19/25 15:24 04/19/25 15:24 04/19/25 15:24 04/19/25 15:24
Last Documented Vital Signs
Temp Pulse Resp BP Pulse Ox
98 F 122 18 150/77 98
04/19/25 15:24 04/19/25 15:24 04/19/25 15:24 04/19/25 15:24 04/19/25 16:17
<Jess Amaya PA-C - Last Filed: 04/19/25 18:50>
Orders/Labs/Results
Orders:
Orders
04/19/25 15:37
Alcohol Urgent
Comprehensive Metabolic Panel Urgent
HCG, Serum Qualitative Screen Urgent
Comment: ADDON
Lipase Urgent
04/19/25 16:12
Electrocardiogram (*1) Urgent
Reason for Study: Abdominal Pain
Cardiac Monitoring- Treatment ONCE
EKG- Treatment ONCE
0.9% Sodium Chloride 500 ml [Nss] 500 ml IV BOLUS
HYDROmorphone [Dilaudid] 0.5 mg IV NOW STA
Ondansetron Injectable [Zofran] 4 mg IV NOW STA
Pantoprazole [Protonix IV] 40 mg IV NOW STA
04/19/25 16:14
CT Abd/pelvis W Iv Cont Urgent
Comment:
Reason For Exam: severe upper abd pain
04/19/25 16:17
CR Chest - 2 Views Urgent
Comment:
Reason For Exam: SOB
04/19/25 16:22
Complete Blood Count/With Diff Urgent
Lactate Level [Lactic Acid] Urgent
PTT Urgent
Prothrombin Time Urgent
Troponin I Urgent
04/19/25 16:45
Add On- LAB Urgent
Tests Added?: qualitative HCG
04/19/25 17:41
HYDROmorphone [Dilaudid] 0.5 mg IV NOW STA
04/19/25 18:02
0.9% Sodium Chloride 500 ml [Nss] 500 ml IV BOLUS
Abnormal Lab Results
04/19/25 04/19/25
15:37 16:22
RBC 3.36 L 10^6/uL
(4.20-5.40)
Hgb 9.7 L g/dL
(12.0-16.0)
Hct 29.8 L %
(37.0-47.0)
MCHC 32.6 L g/dL
(33.0-37.0)
RDW 20.4 H %
(11.5-14.5)
Absolute Monos (auto) 0.8 H 10^3/uL
(0.1-0.6)
Monocytes % 10.7 H %
(1.7-9.3)
PT 16.0 H Sec
(11.4-14.6)
APTT 37.0 H Sec
(23.4-35.0)
Chloride 108 H mmol/L
(98-107)
BUN 3 L mg/dl
(7-17)
Creatinine 0.4 L mg/dL
(0.6-1.0)
Glucose 139 H mg/dl
(70-99)
Lactic Acid 3.1 H mmol/L
(0.7-2.0)
Total Bilirubin 3.3 H mg/dl
(0.2-1.3)
AST 214 H U/L
(14-36)
ALT 52 H U/L
(0-35)
Alkaline Phosphatase 178 H U/L
(38-126)
Total Protein 8.7 H g/dl
(6.3-8.2)
04/19/25 16:22
04/19/25 15:37
Vital Signs
Initial and Last Documented VS:
Initial Vital Signs
Temp Pulse Resp BP Pulse Ox
98 F 122 18 150/77 98
04/19/25 15:24 04/19/25 15:24 04/19/25 15:24 04/19/25 15:24 04/19/25 15:24
Last Documented Vital Signs
Temp Pulse Resp BP Pulse Ox
98 F 122 18 150/77 98
04/19/25 15:24 04/19/25 15:24 04/19/25 15:24 04/19/25 15:24 04/19/25 16:17
<Cortney Joyce PA-C - Last Filed: 04/19/25 19:15>
MDM/Problems Addressed
Differential Diagnosis Includes:
44yoF here with abd pain and vomiting since yesterday. Reports fever earlier today but is afebrile on arrival. Hx of daily alcohol use. Recently hospitalized for alcoholic hepatitis. Continues to drink alcohol heavily. No hematemesis. She is
chronically ill appearing and is uncomfortable due to pain. There is rebound tenderness on exam. Differential diagnosis includes but is not limited to: pancreatitis, gastritis, alcoholic hepatitis
Initial ED plan: Check abdominal labs, lactate, coags, troponin/EKG, CXR, and CT abdomen. IV Protonix, Dilaudid, Zofran, and fluid bolus for symptoms.
Final assessment: Lactate 3.1. White count WNL. Platelets normalized. Bilirubin 3.3 which is improved from 8.8 on 04/08. Case signed out to Elizabeth Amaya PA-C pending CT results. Patient requiring multiple doses of pain medication. Anticipate
admission.
<Cortney Joyce PA-C - Last Filed: 04/19/25 19:15>
*Pulse Oximetry
SaO2: 98
Oxygen Mode of Delivery: Room air
*EKG
Interpreted by ED Provider?: Yes
EKG Intrepretation Date: 04/19/25
Heart Rate: 113
Rate: tachycardiac
Rhythm: sinus
[place]: normal axis
Interval: normal interval
QRS Pattern: normal QRS
Ischemia: no ischemia
<Jess Amaya PA-C - Last Filed: 04/19/25 18:50>
*Pulse Oximetry
Patient hypoxic: no
*Critical Care Note
Total Time (30-74mins, 75-104mins- exclusive of procedures): Not Applicable
<Jess Amaya PA-C - Last Filed: 04/19/25 18:50>
Update Note
Update Note:
Update 6:47 PM: Received patient in signout pending CT scan. CT scan shows findings consistent with severe hepatomegaly/hepatic steatosis as well as mild diffuse pancolitis. Patient requiring multiple doses of IV pain medication in the emergency
department. Will require admission for continued IV fluids and pain management. Patient accepted to hospitalist service in stable condition.
ED Attending Note
<Cortney Joyce PA-C - Last Filed: 04/19/25 19:15>
-
Portions of this chart may have been created with voice recognition software.� Occasional wrong word or��sound alike� substitutions may have occurred due to the inherent limitations of voice recognition software.
Discharge Plan
Departure
Patient Disposition: Admit
Date of Disposition: 04/19/25
Time of Disposition: 18:50
Presentation/result/management discussed w/ accepting MD/DO: Hospitalist
Discharge Problem:
Intractable abdominal pain, Alcohol use disorder
Prescriptions:
No Action
cetirizine [Zyrtec] 10 mg Tablet
10 mg PO DAILY
tretinoin 0.025 % cream
1 applic TOPICAL .SEE BELOW
Patient Comments:
Per patient, applying BID to eczema 'everywhere', prescribed daily
carvedilol 3.125 mg tablet
3.125 mg PO BID
Patient Comments:
Last fill December 2024 for 30-day supply
clonidine HCl 0.1 mg tablet
0.1 mg PO Q8H PRN (Reason: alcohol withdrawal) Qty: 10 0RF
phenobarbital 32.4 mg tablet
32.4 mg PO DIRECTED
Rx Instructions:
starting 04/08/25 take 2 tablets bid for 2 days then 1 tablet bid for 2 then stop
Referrals:
UNKNOWN - PT DOES,NOT KNOW [Family Provider]
Interventions
Interventions:
*Risk Screen - Suicide Last Done: 04/19/25 15:24
*General Assessment Last Done: 04/19/25 15:24
*Neglect/Abuse Screening Last Done: 04/19/25 15:24
*ED- Fall Risk Assessment Last Done: 04/19/25 15:24
*ED COVID-19 Vaccine History Last Done: 04/19/25 15:24
[place] Assessment Last Done: 04/19/25 17:15
Discharge Date and Time
Print Language: CITIZEN OF [place]
[2025-04-19 16:22] VITALS: BMI 28.7
[2025-04-19] MEDS: DILAUDID 0.5 MG IV ×2 (16:25→18:15)
[2025-04-19] MEDS: PROTONIX IV 40 MG IV (16:25)
[2025-04-19] MEDS: NSS 500 IV ×2 (16:26→18:16)
[2025-04-19] MEDS: ZOFRAN 4 MG IV (16:26)
[2025-04-19 16:32] VITALS: BP 126/107
[2025-04-19 16:40] LABS: Hematocrit 29.8 % (37.0-47.0); Hemoglobin 9.7 g/dL (12.0-16.0); Mean Corp Hgb Conc. 32.6 g/dL (33.0-37.0); Mean Corpuscular Volume 88.7 fL (81.0-99.0); Nucleated Red Blood Cells % 0 %; Platelet Count 207 10^3/uL (130-400); Red Cell Dist. Width 20.4 % (11.5-14.5)
[2025-04-19 16:49] LABS: INR 1.25; PT 16.0 Sec (11.4-14.6)
[2025-04-19 16:50] LABS: APTT 37.0 Sec (23.4-35.0)
[2025-04-19 17:04] LABS: Troponin I < 0.012 ng/ml
[2025-04-19 17:29] VITALS: BP 110/68
[2025-04-19 17:30] LABS: HCG, Serum Qualitative Screen Negative
--- NOTE | 2025-04-19 19:14 | HPS.HSE ---
Family Physician
-
Family Physician: NOT KNOW UNKNOWN - PT DOES
Chief Complaint
-
Abdominal pain
History of Present Illness
This is a 44-year-old female with past medical history significant for alcohol abuse with history of alcohol withdrawal, alcoholic hepatitis and liver fibrosis with developing cirrhosis recently admitted to the hospital for acute alcohol withdrawal
status post withdrawal protocol with phenobarbital taper now presenting again to the emergency department with intractable abdominal pain.
Patient was recently hospitalized from 04/06/25-04/08/25 for alcohol withdrawal and alcoholic hepatitis. She started drinking again about 2 weeks ago. She started with severe pain in her upper abdomen yesterday. She is also experiencing nausea and
had 6 episodes of vomiting today. The emesis appeared brown but she denies seeing any blood. She also had a fever of 101 earlier today. Patient has a history of pancreatitis and this feels the same. Currently denies symptoms of alcohol
withdrawal.
In the emergency department she was hypertensive at 5177, afebrile at 98F tachycardic to 122 satting 98% on room air. ECG is nonischemic. Troponin negative. CBC was stable with a hemoglobin of 9.7 and a platelet count of 207. Electrolytes were
normal. Your creatinine was 0.4 with a glucose of 139. Lactic acid was 3.1, alcohol level was 343. LFTs remain elevated similar to prior.
CT of the abdomen pelvis showing hepatomegaly with diffuse hepatic steatosis consistent with possible acute hepatitis. No other acute findings.
Medical History
Past Medical History
Past Medical History: Reports Other (anxiety/depression, alcohol use disorder)
Past Surgical History: Reports None
Social History
Tobacco: Vaping
Alcohol: Occasional
Drug: None
Family History
Family History: Not pertinent
Allergies / Home Medications
Allergies reflects when Allergies were last updated in [employer].
Home Medications with original date entered in [employer]
Allergy/Medication List:
Allergies
Allergy/AdvReac Type Severity Reaction Status Date / Time
lavender (Lavandula Allergy Hives Verified 05/29/23 08:15
angustifolia)
morphine Allergy Hives Verified 05/29/23 08:15
Home Medications
cetirizine 10 mg tablet (Zyrtec) 10 mg PO DAILY 05/29/23
albuterol sulfate 90 mcg/actuation aerosol inhaler 2 puff inhalation R Q6HPRN PRN sob/wheezing 08/14/23
diphenhydramine HCl 25 mg capsule (Benadryl) 50 mg PO HS 08/14/23
ondansetron 4 mg disintegrating tablet 4 mg PO Q8HPRN PRN nausea/vomiting 08/14/23
Review of Systems
-
Constitutional: Reports No Symptoms
EENT: Reports No Symptoms
Respiratory: Reports No Symptoms
Cardiac: Reports No Symptoms
Abdomen/GI: Reports Abdominal Pain, Nausea and Vomiting
: Reports No Symptoms
Musculoskeletal: Reports No Symptoms
Skin: Reports No Symptoms
Neurological: Reports No Symptoms
Endocrine: Reports No Symptoms
Hematologic/Lymphatic: Reports No Symptoms
Psych: Reports No Symptoms
Physical Exam
Vital Signs
Vital Signs
Temp Pulse Resp BP Pulse Ox
98 F 122 18 150/77 98
04/19/25 15:24 04/19/25 15:24 04/19/25 15:24 04/19/25 15:24 04/19/25 16:17
Physical Exam
General: Well Developed, Well Nourished and No Apparent Distress
HEENT: NormoCephalic, Moist mucous membranes and Atraumatic
Respiratory: Clear
Cardiac: S1/S2 and Regular Rhythm; No Murmur or Rub
GI: Soft, Non Tender, Non Distended and Normal Bowel Sounds; No Organomegaly
Rectal: Deferred by Provider
Musculoskeletal: No Clubbing, No Cyanosis and No Edema
Skin: No Rash
Neuro: Nonfocal/grossly intact
Laboratory Results
-
04/19/25 16:22
04/19/25 15:37
Laboratory Results
PT 16.0 Sec (11.4-14.6) H 04/19/25 16:22
INR 1.25 04/19/25 16:22
APTT 37.0 Sec (23.4-35.0) H 04/19/25 16:22
Lactic Acid 3.1 mmol/L (0.7-2.0) H 04/19/25 16:22
Total Bilirubin 3.3 mg/dl (0.2-1.3) H 04/19/25 15:37
AST 214 U/L (14-36) H 04/19/25 15:37
ALT 52 U/L (0-35) H 04/19/25 15:37
Alkaline Phosphatase 178 U/L (38-126) H 04/19/25 15:37
Troponin I < 0.012 ng/ml 04/19/25 16:22
Lipase 125 U/L (23-300) 04/19/25 15:37
Data Reviewed
-
CT Scan: Report Reviewed by me
Medical Tests (Nuc Med, Echo, EKG etc): Image Personally Visualized and interpreted
Lab Data: Labs Reviewed by me
Old Records: Reviewed
Impression/Plan
-
IMPRESSION:
44-year-old female with past medical history significant for alcohol abuse, alcoholic hepatitis, pancreatitis was recently admitted for acute alcohol withdrawal status post phenobarbital taper who now presents to the Emergency Department with
abdominal pain with intractable nausea vomiting. Patient started drinking again about 2 weeks ago. Labs essentially similar to prior. CT scan shows likely hepatitis was mostly unchanged from prior. Clinical picture is consistent with acute
alcoholic gastritis versus acute hepatitis. In similar fashion to prior discriminant function is negative. She is not in acute withdrawal at this time.
PLAN:
1. Abdominal pain - suspect acute gastritis vs hepatitis, lipase negative
- admit to med/surg
- continue IV fluids, antiemetics, famotidine, ppi iv and analgesics
- NPO for now
- trend lfts, glucose, pt inr
- if lfts stable, lactate stable will hold off gi consultation
2. ETOH abuse - last drink was today prior to coming to ED, ETOH 340. Not currently in withdrawal
- place on msas protocol given high risk of withdrawal
- continue clonidine prn
- continue thiamine/folate supplementation
- low risk phenobarb taper
- patient has planned outpatient rehab
- case management consult
- ultimately, needs alcohol cessation and regular GI/hepatology follow-up for HCC screening q6 months.
DVT prophylaxis�heparin subcu for now
CODE STATUS�full code
[2025-04-19] MEDS: DILAUDID 1 MG IV (21:03)
[2025-04-19 21:08] VITALS: BP 127/71
--- NOTE | 2025-04-19 22:30 | PTCARENOTE ---
Rec'd to floor from ED. Alert & oriented x3. C/O abd pain; denies nausea. Admits to drinking very freq t/o the day, w/last drink being 04/19 @ 1000. MSAS 2
[2025-04-19 22:41] VITALS: BMI 28.4
[2025-04-19 22:42] VITALS: BP 136/85
[2025-04-19] MEDS: D5LR 1000 IV (23:00)
[2025-04-19] MEDS: COREG PO (23:15)
[2025-04-19] MEDS: PHENOBARBITAL 97.5 MG IV (23:33)
[2025-04-19] MEDS: THIAMINE INJECTION 200 MG IV (23:41)
[2025-04-19] MEDS: HEPARIN 5000 UNITS SC (23:48)
[2025-04-19] MEDS: PEPCID 20 MG IV (23:59)
[2025-04-19] MEDS: NSS (PRESERVATIVE FREE) 8 ML IV (23:59)
[2025-04-20 01:17] VITALS: BP 98/62
[2025-04-20] MEDS: DILAUDID 1 MG IV ×2 (01:58→08:00)
[2025-04-20 03:00] VITALS: BP 149/99
[2025-04-20] MEDS: ATIVAN 1 MG PO (04:34)
[2025-04-20] MEDS: THIAMINE INJECTION 200 MG IV ×2 (08:04→19:43)
[2025-04-20] MEDS: PHENOBARBITAL 97.5 MG IV ×3 (08:04→21:20)
[2025-04-20] MEDS: PROTONIX IV 40 MG IV ×2 (08:04→19:43)
[2025-04-20] MEDS: NSS (PRESERVATIVE FREE) 10 ML IV (08:04)
[2025-04-20 08:13] VITALS: BP 146/94
[2025-04-20 09:01] LABS: Urine Character Clear (Clear)
[2025-04-20 09:08] LABS: Urine Squamous Cell 16-20 /LPF (Few)
[2025-04-20 09:09] LABS: Urine White Cell 0-2 /HPF (0-5)
[2025-04-20] MEDS: FOLVITE 1 MG PO (09:36)
[2025-04-20] MEDS: HEPARIN 5000 UNITS SC ×3 (09:36→23:29)
[2025-04-20] MEDS: COREG 3.125 MG PO ×2 (09:36→19:44)
[2025-04-20] MEDS: ZYRTEC 10 MG PO (09:36)
[2025-04-20 09:52] LABS: INR 1.33; PT 16.7 Sec (11.4-14.6)
[2025-04-20 09:53] LABS: APTT 39.7 Sec (23.4-35.0)
[2025-04-20 09:56] LABS: Hematocrit 24.0 % (37.0-47.0); Hemoglobin 7.6 g/dL (12.0-16.0); Mean Corp Hgb Conc. 31.7 g/dL (33.0-37.0); Mean Corpuscular Volume 90.2 fL (81.0-99.0); Platelet Count 109 10^3/uL (130-400); Red Cell Dist. Width 20.1 % (11.5-14.5)
[2025-04-20 10:19] LABS: ALT (SGPT) 42 U/L (0-35); AST (SGOT) 165 U/L (14-36); Albumin 3.5 g/dl (3.5-5.0); Alkaline Phosphatase 163 U/L (38-126); Blood Urea Nitrogen 5 mg/dl (7-17); Calcium 7.7 mg/dl (8.4-10.2); Carbon Dioxide 27 mmol/L (22-30); Chloride 103 mmol/L (98-107); Estimated Creatinine Clearance 103 ml/min; Glucose 113 mg/dl (70-99); Magnesium 1.7 mg/dl (1.6-2.3); Potassium 4.1 mmol/L (3.5-5.1); Sodium 135 mmol/L (135-145); Total Protein 7.5 g/dl (6.3-8.2); eGFR > 60.00
[2025-04-20] MEDS: ROCEPHIN 1000 MG IV (11:38)
[2025-04-20] MEDS: STERILE WATER FOR INJECTION 10 ML IV (11:38)
[2025-04-20] MEDS: DILAUDID 0.25 MG IV ×3 (11:39→19:43)
[2025-04-20] MEDS: SANDOSTATIN 500.6 MCG IV ×2 (12:09→23:23)
--- NOTE | 2025-04-20 12:15 | CON.GI ---
Addendum entered and electronically signed by Chelsey Rucker Do, MD 04/20/25 16:41:
I saw and examined the patient.
The CLINICAL PSYCHOLOGY TEACHER's note was reviewed and I agree with the note.
Comment: Avani is a 44yo W with h/o ETOH cirrhosis, ETOH pancreatitis and HTN who presents for abd pain and coffee grounds. She drinks 750mL daily basis last yesterday. Denies blood in stools. Vitals AF tachy 105 HR 156/94. tremulous abd
distended TTP . Labs reviewed Hbg 9.7 down to 7.6 on this admission. Last EGD at [facility] 1yr ago per pt small EV
Impression
- ETOH abuse
- ETOH cirrhosis
- Coffee ground emesis and anemia
- Abd pain
Suspect ETOH hepatitis and gastritis
- h/o pancreatitis
- HTN
Recommendation
- IV protonix BID
- Octreotide and CTX
- NPO ok for meds and sips
- Plan for EGD tomorrow
- Watch for ETOH withdrawal symptoms
- Counseled on ETOH cessation
- Not transplant candidate given ongoing active drinking
Will follow with you
Original Note:
Consultation
-
Date/Time Consultation Requested: 04/20/25 1035
Date/Time Consultation Performed: 04/20/25 1100
Requesting Provider: Dr. Cheli Escalante
Performing Provider: Dr. Meyer/RADHA Herrera
Reason for Consultation: UGIB, cirrhosis
Medical History
Chief Complaint / HPI
Chief Complaint: abd pain
History of Present Illness:
44-year-old female with past medical history of alcohol cirrhosis, alcohol pancreatitis, anxiety, depression, hypertension who presents to the emergency room with nausea, vomiting and abdominal pain. The patient had coffee-ground emesis. We are
asked to evaluate for the same. The patient drinks approximately 750 mL of vodka daily. She drank this on Sunday however states that on Sunday she drank approximately ' 2 of the small airplane bottles of vodka' prior to presentation. She also
had a fever of 101 prior to presentation. She also had an alcohol level of 343 on presentation. She states that she had an EGD at [facility] approximately 1 year ago that showed 'small varices'. This is the reason why she is on
Coreg all. She states that she also takes Protonix daily. She took Motrin approximately 1 week ago 1-2 doses. At the present time she is slightly tremulous and is on withdrawal protocol medication. She denies any further vomiting while here.
She states her last bowel movement was brown. Her hemoglobin has dropped from 9.7 yesterday to 7.6 this morning. She denies any melena, hematochezia, dysphagia or odynophagia. She has never had a colonoscopy before. She does not follow with
outpatient GI. She may have also seen GI at [facility] as her last admission she states that she had an endoscopy with subjective gastritis. Her mother is present at bedside as well.
Past Medical History
Past Medical History: Other (Alcoholic cirrhosis, alcohol pancreatitis, anxiety, depression, hypertension)
Social History
Tobacco: Vaping
Alcohol: Daily (750 mL vodka daily)
Drug: None
Personal:
Living: With Family
Employment: Not Employed
Family History
Family History: Other (Paternal grandmother with history of pancreatic cancer, otherwise no family history of gastrointestinal malignancy or IBD)
Allergies / Home Medications
Allergy/AdvReac Type Severity Reaction Status Date / Time
lavender (Lavandula Allergy Hives Verified 04/19/25 15:26
angustifolia)
morphine Allergy Hives Verified 04/19/25 15:26
�Medication �Instructions �Recorded
cetirizine 10 mg tablet (Zyrtec) 10 mg PO DAILY Allergies 05/29/23
carvedilol 3.125 mg tablet 3.125 mg PO BID 04/06/25
tretinoin 0.025 % topical cream 1 applic topical DAILY eczema 04/06/25
clonidine HCl 0.1 mg tablet 0.1 mg PO Q8HPRN PRN alcohol 04/19/25
withdrawal
pantoprazole 40 mg tablet,delayed 40 mg PO DAILY 04/19/25
release (Protonix)
Review of Systems
-
All other systems: A 12 pt ROS was Negative except as stated above in HPI
Vital Signs
Temp Pulse Resp BP Pulse Ox
99.0 F 113 18 146/94 97
04/20/25 08:13 04/20/25 08:13 04/20/25 08:13 04/20/25 08:13 04/20/25 08:13
Physical Exam
Exam
General: Other (appears older than stated age)
HEENT: Other (Sclera slightly icteric)
Respiratory: Clear
Cardiac: Regular Rhythm (Tachycardic)
GI: Soft, Non Tender, Non Distended and Normal Bowel Sounds
Skin: Warm and Dry
Neuro: AO x 3 and Tremors
Psych: Calm
Results
WBC 3.6 10^3/uL (4.8-10.8) L 04/20/25 09:26
Hgb 7.6 g/dL (12.0-16.0) L D 04/20/25 09:26
Hct 24.0 % (37.0-47.0) L 04/20/25 09:26
MCV 90.2 fL (81.0-99.0) 04/20/25 09:26
Plt Count 109 10^3/uL (130-400) L D 04/20/25 09:26
Absolute Neuts (auto) 4.9 10^3/uL (1.4-6.5) 04/19/25 16:22
PT 16.7 Sec (11.4-14.6) H 04/20/25 09:26
INR 1.33 04/20/25 09:26
APTT 39.7 Sec (23.4-35.0) H 04/20/25 09:26
Sodium 135 mmol/L (135-145) 04/20/25:
Potassium 4.1 mmol/L (3.5-5.1) 04/20/25:
Chloride 103 mmol/L (98-107) 04/20/25:
Carbon Dioxide 27 mmol/L (22-30) 04/20/25:
BUN 5 mg/dl (7-17) L 04/20/25:
Creatinine 0.3 mg/dL (0.6-1.0) L 04/20/25:
Calcium 7.7 mg/dl (8.4-10.2) L 04/20/25:
Total Bilirubin 4.0 mg/dl (0.2-1.3) H 04/20/25:
AST 165 U/L (14-36) H 04/20/25:
ALT 42 U/L (0-35) H 04/20/25:
Alkaline Phosphatase 163 U/L (38-126) H 04/20/25:
Lipase 125 U/L (23-300) 04/19/25 15:37
Diagnostic Image Results:
CT abdomen and pelvis with IV contrast only 04/19/2025:
IMPRESSION:
1. SEVERE HEPATOMEGALY (possibly acute hepatitis) and SEVERE DIFFUSE HEPATIC STEATOSIS.
2. Extensive bands of enhancing fibrosis throughout the right lobe of the liver.
3. Mild hepatic cirrhosis.
4. PORTAL HYPERTENSION with a recanalized paraumbilical vein.
5. Moderate splenomegaly and perisplenic varices secondary to portal hypertension.
6. Mild diffuse pancolitis (probably mild portal colopathy).
Chest x-ray 04/19/2025:
IMPRESSION:
1. Mild cardiomegaly with suggestion of elevated pulmonary venous pressures.
2. Mild elevation of the right hemidiaphragm

04/06/25 CT A/P: Progressive hepatomegaly and parenchymal changes, consistent with progressive fatty infiltration and cirrhosis. Evidence of portal hypertension, with stable splenomegaly and splenorenal portosystemic venous collaterals as well as
recanalization of the paraumbilical vein. No ascites.
04/09/24 CT a/p
1. Hepatomegaly and portal hypertension with splenomegaly and recanalization of the umbilical vein. No definitive cirrhotic changes of the liver at CT, however the liver shows diffuse heterogeneous enhancement as above. While this can be seen in
association with hepatitis, it is suspicious for a perfusion anomaly. As on the prior study, predominantly low attenuation of the hepatic parenchyma related to fatty infiltration. Portal veins are patent. As above, hepatic veins are not well seen.
Evaluation of this is limited secondary to single portal venous phase acquisition. These findings could be further evaluated with follow-up abdominal MRI or ultrasound with Doppler evaluation.
2. Mild peripancreatic stranding suggesting possible pancreatitis. This is less pronounced as compared with the prior examination.
04/11/24 doppler US
Doppler evaluation shows normal flow and direction of flow in the hepatic veins, and portal veins except for the right portal vein which is not visualized.
The umbilical vein is recanalized.
Assessment / Plan
-
44-year-old female with past medical history of alcohol cirrhosis, alcohol pancreatitis, anxiety, depression, hypertension who presents to the emergency room with nausea, vomiting and abdominal pain. The patient had coffee-ground emesis. We are
asked to evaluate for the same. Patient states her last EGD was approximately 1 year ago at [facility] and that showed 'small varices'. She is still on Coreg. She is still actively drinking up to 750 mL of vodka daily. Her last
alcoholic beverage was prior to presentation where she states she drank '2 small airplane bottles of vodka'. Patient was soft, brown bowel movement yesterday. Mild diffuse pancolitis seen on imaging, probable mild portal colopathy. Presented with
alcohol level of 343. This was yesterday. Hemoglobin currently 7.6 down from 9.7 yesterday. Platelets currently 109. Type and screen ordered. Consent obtained for blood products if needed. Patient is NPO. Discussed for EGD today. UDS
positive for opiates, barbiturates, benzodiazepines.
Impression:
Upper GI bleed, coffee-ground emesis-> hemoglobin dropped from 9.7->7.6
Cirrhosis secondary to alcohol
Per patient history of esophageal varices
Alcohol abuse-> presented with alcohol level 343
Plan:
- NPO, patient had ice chips couple hours prior
- Pantoprazole IV BID
- Started on octreotide drip
- Will give ceftriaxone 1 gm daily, first dose now
- Repeat hemoglobin with type and screen
- Consent for blood obtained in case needed
- EGD today
- Trend CBC, BMP, LFT/PT/INR daily
- EtOH cessation absolutely necessary
- Withdrawal protocol initiated
-If with loose stools to obtain stool studies
- Further recommendations to be forthcoming
-
-
Thank you for consultation and allowing me to participate in the patient's care. Please call the labor relations worker GI physician during the after hours with any questions or concerns.
--- NOTE | 2025-04-20 14:56 | W.PN.HOSP.TC ---
Today's Communication/Plan
-
GI eval
Octreotide/PPI per GI
Monitor hemoglobin
Assessment / Plan
Assessment / Plan
1. Abdominal pain
- Suspecting due to gastritis/peptic ulcer disease versus hepatomegaly related
- Symptomatic care with pain medication, regimen adjusted
2. Acute blood loss anemia
Rule out GI bleed
History of varices
- Patient reported of having esophageal varices on previous EGD, report not available to us
- Patient hemoglobin trended down to 7.6 from 1.7 yesterday.
- GI evaluated and patient started on octreotide drip and PPI
- Started on Rocephin for upper GI bleed prophylaxis
- Maintain patient n.p.o.
3. Alcohol use disorder
-Monitor for any alcohol withdrawal
-Patient started on phenobarb/Ativan protocol with history of withdrawal
-Will patient wean off based on clinical course
-Last drink on 04/19
4. Alcoholic hepatitis
Likely cirrhosis
-Elevated LFT
-CT abdomen pelvis showing significant changes of hepatomegaly/splenomegaly/portal hypertension
-Avoid hepatotoxic medication
-Patient will require follow-up with hepatology postdischarge
5./ Essential HTN
- maintain on coreg
DVT PPX - scd
Full code
Total time spent 54-minute
Anticipated Discharge: > 48 hours
Subjective/Interval History
-
Date of Service: April 20, 2025
Continues to have abdominal pain
No further episodes of vomiting
Objective Data
-
Labs:
Laboratory Results
04/20/25
09:26
WBC 3.6 L
Hgb 7.6 L D
Hct 24.0 L
Plt Count 109 L D
PT 16.7 H
INR 1.33
APTT 39.7 H
Sodium 135
Potassium 4.1
Chloride 103
Carbon Dioxide 27
BUN 5 L
Creatinine 0.3 L
Glucose 113 H
Calcium 7.7 L
Total Bilirubin 4.0 H
AST 165 H
ALT 42 H
Alkaline Phosphatase 163 H
Vital Signs:
Vital Signs
Temp Pulse Resp BP Pulse Ox
99.0 F 113 18 146/94 97
04/20/25 08:13 04/20/25 08:13 04/20/25 08:13 04/20/25 08:13 04/20/25 08:13
Review of Systems
-
Respiratory: Reports No Symptoms
Cardiac: Reports No Symptoms
Abdomen/GI: Reports No Symptoms
Physical Exam
-
General: No Apparent Distress and Comfortable
HEENT: Negative Oxygen
Respiratory: Clear to Auscultation
Cardiac: Regular Rhythm and S1/S2; Negative Murmur or Rub
GI: Soft, Nontender, Nondistended and Normal Bowel Sounds
Musculoskeletal: No Edema
Neuro: Awake, Alert, Oriented, No Motor Deficits and Nonfocal/Grossly Intact
Psych: Calm
[2025-04-20] MEDS: D5LR 1000 IV ×2 (15:03→23:26)
--- NOTE | 2025-04-20 15:16 | CM ---
manager of data reviewed patient's chart and met with patient and patient's daughter and patient lives in a two story home with 2 steps to enter, patient is independent with adl's and ambulation, no dme, patient drives.
PCP: None
Pharmacy: [facility] in [place]
[2025-04-20 15:45] VITALS: BP 156/94
[2025-04-20] MEDS: ROXICODONE 5 MG PO (16:30)
[2025-04-20 19:00] VITALS: BP 159/116
[2025-04-20 20:50] LABS: Hematocrit 24.5 % (37.0-47.0); Hemoglobin 7.8 g/dL (12.0-16.0); Mean Corp Hgb Conc. 31.8 g/dL (33.0-37.0); Mean Corpuscular Volume 90.4 fL (81.0-99.0); Red Cell Dist. Width 19.2 % (11.5-14.5)
[2025-04-20 21:10] LABS: Platelet Count 87 10^3/uL (130-400)
[2025-04-20] MEDS: PEPCID 20 MG IV (21:20)
[2025-04-20] MEDS: NSS (PRESERVATIVE FREE) 8 ML IV (21:20)
[2025-04-20 23:00] VITALS: BP 166/103
[2025-04-20] MEDS: ROXICODONE 10 MG PO (23:23)
[2025-04-21] VITALS (12 sets, daily range): BP systolic 17–151; BP diastolic 75–104
[2025-04-21] MEDS: DILAUDID 0.25 MG IV ×3 (00:51→11:01)
--- NOTE | 2025-04-21 02:25 | DOWNTIME ---
There was a [employer] Client Supervisor Sandblaster Downtime on 04/21/2025 from 0100 to 04/21/2025 at 0220. Downtime documentation of patient's care, including medication administrations, has been reconciled in the electronic record per guidelines. Refer to the
patient's paper chart under the miscellaneous tab to see printed paper medication records and downtime forms.
[2025-04-21] MEDS: ROXICODONE 10 MG PO ×2 (04:54→14:13)
[2025-04-21] MEDS: D5LR IV (06:14)
[2025-04-21] MEDS: D5LR 1000 IV ×2 (06:15→14:08)
[2025-04-21 07:59] LABS: Hematocrit 23.8 % (37.0-47.0); Hemoglobin 7.6 g/dL (12.0-16.0); Mean Corp Hgb Conc. 31.9 g/dL (33.0-37.0); Mean Corpuscular Volume 90.8 fL (81.0-99.0); Platelet Count 81 10^3/uL (130-400); Red Cell Dist. Width 19.0 % (11.5-14.5)
[2025-04-21] MEDS: PHENOBARBITAL 97.5 MG IV ×2 (08:13→15:48)
[2025-04-21] MEDS: PROTONIX IV 40 MG IV ×2 (08:15→19:27)
[2025-04-21] MEDS: HEPARIN 5000 UNITS SC ×2 (08:17→15:43)
[2025-04-21] MEDS: THIAMINE INJECTION 200 MG IV ×2 (08:18→19:28)
[2025-04-21 08:30] LABS: ALT (SGPT) 33 U/L (0-35); AST (SGOT) 132 U/L (14-36); Albumin 3.4 g/dl (3.5-5.0); Alkaline Phosphatase 148 U/L (38-126); Blood Urea Nitrogen 2 mg/dl (7-17); Calcium 7.4 mg/dl (8.4-10.2); Carbon Dioxide 27 mmol/L (22-30); Chloride 100 mmol/L (98-107); Estimated Creatinine Clearance 103 ml/min; Glucose 164 mg/dl (70-99); Potassium 3.9 mmol/L (3.5-5.1); Sodium 133 mmol/L (135-145); Total Protein 7.1 g/dl (6.3-8.2); eGFR > 60.00
[2025-04-21] MEDS: ROXICODONE 5 MG PO (09:40)
[2025-04-21] MEDS: ZYRTEC 10 MG PO (10:20)
[2025-04-21] MEDS: COREG 3.125 MG PO ×2 (10:20→19:26)
[2025-04-21] MEDS: FOLVITE 1 MG PO (10:20)
--- NOTE | 2025-04-21 10:54 | CM ---
Addendum entered by Marga Craig 04/21/25 14:07:
Patient seen bedside, patient aware of CM availability should needs arise.
Plan: home no needs anticipated.
Original Note:
Patient off the floor for egd.
Mother in room.
No home care needs anticipated.
Plan: home no needs.
[2025-04-21] MEDS: ROCEPHIN 1000 MG IV (11:05)
[2025-04-21] MEDS: STERILE WATER FOR INJECTION 10 ML IV (11:06)
[2025-04-21] MEDS: SANDOSTATIN 500.6 MCG IV (14:08)
[2025-04-21] MEDS: ZOFRAN 4 MG IV (14:13)
[2025-04-21] MEDS: OXYCONTIN (CONTROLLED RELEASE) 10 MG PO ×2 (15:43→19:27)
--- NOTE | 2025-04-21 16:16 | W.PN.HOSP.TC ---
Today's Communication/Plan
-
octreotide drip per GI
increase pain meds
Assessment / Plan
Assessment / Plan
1. Abdominal pain
- Due to gastritis and hepatomegaly
- Symptomatic care with pain medication - increase pain medication.
2. Acute blood loss anemia
Rule out GI bleed
History of varices
- Patient hemoglobin stable around 7.5
- GI evaluated and patient started on octreotide drip and PPI
- Started on Rocephin for upper GI bleed prophylaxis
- s/p EGD showing esophageal varices with recent stigmata of bleed, band placed. Also have changes of gastritis and some duodenal atrophy, has been biopsied.
3. Alcohol use disorder
-Monitor for any alcohol withdrawal
-Patient started on Phenobarbital/Ativan protocol with history of withdrawal
-Will patient wean off based on clinical course
-Last drink on 04/19
4. Alcoholic hepatitis
Likely cirrhosis
-Elevated LFT
-CT abdomen pelvis showing significant changes of hepatomegaly/splenomegaly/portal hypertension
-Avoid hepatotoxic medication
-Patient will require follow-up with hepatology postdischarge
-Liver enzyme is trending down.
5./ Essential HTN
- maintain on coreg
DVT PPX - scd
Full code
Total time spent ; 38 mins
Anticipated Discharge: 24 - 48 hours
Subjective/Interval History
-
Date of Service: April 21, 2025
no nausea/vomiting
continues to have significant abd pain
Objective Data
-
Labs:
Laboratory Results
04/21/25
07:45
WBC 2.5 L
Hgb 7.6 L
Hct 23.8 L
Plt Count 81 L
Sodium 133 L
Potassium 3.9
Chloride 100
Carbon Dioxide 27
BUN 2 L
Creatinine 0.4 L
Glucose 164 H
Calcium 7.4 L
Total Bilirubin 4.3 H
AST 132 H
ALT 33
Alkaline Phosphatase 148 H
Vital Signs:
Vital Signs
Temp Pulse Resp BP Pulse Ox
100.1 F 97 16 133/76 93
04/21/25 16:13 04/21/25 16:13 04/21/25 16:13 04/21/25 16:13 04/21/25 16:13
I&O
04/20/25 04/21/25 04/22/25
06:59 06:59 06:59
Intake Total 600 / 600
Balance 600 / 600
Review of Systems
-
Respiratory: Reports No Symptoms
Cardiac: Reports No Symptoms
Abdomen/GI: Reports Abdominal Pain; Denies Nausea or Vomiting
Physical Exam
-
General: No Apparent Distress and Comfortable
HEENT: Negative Oxygen
Respiratory: Clear to Auscultation
Cardiac: Regular Rhythm and S1/S2; Negative Murmur or Rub
GI: Soft and Nontender
Musculoskeletal: No Edema
Neuro: Awake, Alert, Oriented, No Motor Deficits and Nonfocal/Grossly Intact
Psych: Calm
[2025-04-21] MEDS: DILAUDID 0.5 MG IV ×2 (17:51→22:05)
--- NOTE | 2025-04-21 19:50 | W.PN.UPDATE ---
Update Note
Progress Note Update
-New onset of fever temp 100.5, bp 151/82, hr 97,
-New orders of cbc, lactic, flu, covid, and blood cultures.
-lactic acid is 1.7 and no leukocytosis, covid and flu are (neg).
-Blood cultures is pending.�
-Hgb level dropped down to 7.1 previously 7.6. Abdomen is soft nontender during the exam, some bruises noted around umbilical area but the patient confirmed that bruises been there prior admission and improved during hospital stay. Bruises noted on
nursing skin assessment documentation on admission.
-Will repeat h&h and transfuse if needed.
Repeated h&h is 6.9, one unit of blood ordered
[2025-04-21] MEDS: TYLENOL 650 MG PO (20:11)
[2025-04-21 20:40] LABS: Hematocrit 22.1 % (37.0-47.0); Hemoglobin 7.1 g/dL (12.0-16.0); Mean Corp Hgb Conc. 32.1 g/dL (33.0-37.0); Mean Corpuscular Volume 89.8 fL (81.0-99.0); Platelet Count 83 10^3/uL (130-400); Red Cell Dist. Width 19.0 % (11.5-14.5)
[2025-04-21 20:46] LABS: COVID-19 Antigen Negative (Negative)
--- NOTE | 2025-04-21 21:33 | PTCARENOTE ---
Addendum entered by Naila Shannon RN 04/22/25 03:04:
Bruising around abd area also observed. When patient was asked about the bruising she said she had come in with it when admitted to the hospital and that she did not think it was related to her heparin shots. Provider notified regarding pt.'s firm,
distended abd, abd pain, and observed bruising around the navel area. Provider at bedside to assess pt. Pt. then stated that she actually thought the bruising had improved since she was admitted and that prior to admission, the bruising had been
more widespread across her abdomen. AM labs were drawn and showed that her hgb continues to decrease with the last drop being from 7.1 to 6.9 Provider notified. Plan of care continues.
Original Note:
Patient found to have temp of 100.5 during change of shift VS. Provider notified. Blood cultures X2, lactic acid, CBC, COVID/Flu swab ordered by provider and sent to lab per order. Pt. denies loose stools, N/V but continues to c/o severe abd pain,
mainly in RLQ of ABD. Pain meds administered per order and one time dose of tylenol given as well for fever. Plan of care ongoing.
[2025-04-21] MEDS: LUMINAL 64.8 MG PO (22:03)
[2025-04-21] MEDS: PEPCID 20 MG IV (22:04)
[2025-04-21] MEDS: NSS (PRESERVATIVE FREE) 8 ML IV (22:04)
[2025-04-22] VITALS (11 sets, daily range): BP systolic 115–159; BP diastolic 74–95
[2025-04-22] MEDS: HEPARIN SC ×3 (01:20→08:24)
[2025-04-22] MEDS: SANDOSTATIN 500.6 MCG IV ×2 (02:40→18:19)
[2025-04-22] MEDS: DILAUDID 0.5 MG IV ×5 (02:48→22:43)
[2025-04-22 03:00] LABS: Hematocrit 22.3 % (37.0-47.0); Hemoglobin 6.9 g/dL (12.0-16.0); Mean Corp Hgb Conc. 30.9 g/dL (33.0-37.0); Mean Corpuscular Volume 92.1 fL (81.0-99.0); Platelet Count 79 10^3/uL (130-400); Red Cell Dist. Width 18.9 % (11.5-14.5)
[2025-04-22 03:10] LABS: ALT (SGPT) 28 U/L (0-35); AST (SGOT) 103 U/L (14-36); Albumin 3.2 g/dl (3.5-5.0); Alkaline Phosphatase 123 U/L (38-126); Blood Urea Nitrogen 2 mg/dl (7-17); Calcium 7.8 mg/dl (8.4-10.2); Carbon Dioxide 29 mmol/L (22-30); Chloride 106 mmol/L (98-107); Estimated Creatinine Clearance 103 ml/min; Glucose 95 mg/dl (70-99); Potassium 4.1 mmol/L (3.5-5.1); Sodium 138 mmol/L (135-145); Total Protein 6.8 g/dl (6.3-8.2); eGFR > 60.00
[2025-04-22] MEDS: ROXICODONE 10 MG PO ×2 (04:58→15:17)
[2025-04-22] MEDS: FOLVITE 1 MG PO (07:59)
[2025-04-22] MEDS: LUMINAL 64.8 MG PO ×2 (07:59→18:36)
[2025-04-22] MEDS: PROTONIX IV 40 MG IV ×2 (08:00→20:50)
[2025-04-22] MEDS: THIAMINE INJECTION 200 MG IV (08:01)
[2025-04-22] MEDS: COREG 3.125 MG PO ×2 (08:10→20:53)
[2025-04-22] MEDS: ZYRTEC 10 MG PO (08:11)
[2025-04-22 09:41] LABS: Hematocrit 25.8 % (37.0-47.0); Hemoglobin 8.2 g/dL (12.0-16.0)
[2025-04-22] MEDS: OXYCONTIN (CONTROLLED RELEASE) 10 MG PO ×2 (10:17→20:56)
[2025-04-22] MEDS: ROCEPHIN 1000 MG IV (12:11)
[2025-04-22] MEDS: STERILE WATER FOR INJECTION 10 ML IV (12:11)
--- NOTE | 2025-04-22 13:22 | CM ---
Home today no needs.
Plan; Home no needs when stable.
--- NOTE | 2025-04-22 14:36 | W.PN.HOSP.TC ---
Today's Communication/Plan
-
see note
Assessment / Plan
Assessment / Plan
1. Abdominal pain
- Due to gastritis and hepatomegaly
- Pain is better controlled with Oxy CR schedule/Oxy IR as needed regimen
2. Acute blood loss anemia
Rule out GI bleed
History of varices
- GI evaluated and patient started on octreotide drip and PPI
- Started on Rocephin for upper GI bleed prophylaxis
- s/p EGD showing esophageal varices with recent stigmata of bleed, band placed. Also have changes of gastritis and some duodenal atrophy, has been biopsied.
- Hemoglobin dropped to 6.9 today, got 1 unit of PRBC in the night
- No reported luminal blood loss
- Diet advancement per GI
3. Alcohol use disorder
-Monitor for any alcohol withdrawal
- Shorten phenobarb taper, continue as needed Ativan
-Will patient wean off based on clinical course
-Last drink on 04/19
4. Alcoholic hepatitis
Likely cirrhosis
-Elevated LFT
-CT abdomen pelvis showing significant changes of hepatomegaly/splenomegaly/portal hypertension
-Avoid hepatotoxic medication
-Patient will require follow-up with hepatology postdischarge
-Liver enzyme is trending down.
5. Essential HTN
- maintain on coreg
6. Diffuse pruritus
Possible spider naevi
- Patient have focal red pinpoint lesion, questionable spiden naevi
- Diffuse pruritus likely explained by direct billirubinemia
7. Fever episode
- Patient had febrile episode yesterday night
- COVID check negative
- Already on Rocephin for GI prophylaxis
- Blood culture ordered and collected in the night
- Reason unclear, continue monitoring
8. Depression/anxiety
- Patient alcohol use disorder rooted in her untreated depression per patient/family
- Had lengthy discussion and patient is planning to follow-up with psychiatry postdischarge
9. Abdominal wall hematoma
- Patient of small 3 x 3 cm tender swelling and periumbilical area on exam
- Deep-seated and unable to confirm if intramuscular hematoma
- Focal ultrasound exam ordered
DVT PPX - scd
Full code
Total time spent ; 54misn
Anticipated Discharge: 24 - 48 hours
Subjective/Interval History
-
Date of Service: April 22, 2025
Abdominal pain is somewhat better
Denies of having any bowel movements/vomiting episode
Objective Data
-
Labs:
Laboratory Results
04/22/25 04/22/25
02:36 09:28
WBC 2.6 L
Hgb 6.9 L* 8.2 L
Hct 22.3 L 25.8 L
Plt Count 79 L
Sodium 138
Potassium 4.1
Chloride 106
Carbon Dioxide 29
BUN 2 L
Creatinine 0.5 L
Glucose 95
Calcium 7.8 L
Total Bilirubin 4.8 H
AST 103 H
ALT 28
Alkaline Phosphatase 123
Vital Signs:
Vital Signs
Temp Pulse Resp BP Pulse Ox
99.1 F 82 20 128/86 96
04/22/25 11:22 04/22/25 11:22 04/22/25 11:22 04/22/25 11:22 04/22/25 11:22
I&O
04/21/25 04/22/25 04/23/25
06:59 06:59 06:59
Intake Total 600 / 600 0 / 0 730 / 730
Balance 600 / 600 0 / 0 730 / 730
Review of Systems
-
Respiratory: Reports No Symptoms
Cardiac: Reports No Symptoms
Abdomen/GI: Reports Abdominal Pain; Denies Nausea or Vomiting
Physical Exam
-
General: No Apparent Distress and Comfortable
HEENT: Negative Oxygen
Respiratory: Clear to Auscultation
Cardiac: Regular Rhythm and S1/S2; Negative Murmur or Rub
GI: Soft, Tender and Other (Localized swelling on abd wall)
Musculoskeletal: No Edema
Neuro: Awake, Alert, Oriented, No Motor Deficits and Nonfocal/Grossly Intact
Psych: Calm
--- NOTE | 2025-04-22 14:40 | W.PN.GI.CBS2 ---
Addendum entered and electronically signed by Shelli Matthew DO 04/22/25 18:20:
Patient seen and examined independently of [facility]. I agree with her note with my additions below
Avani Is a 44-year-old female with history of significant alcohol use, alcoholic cirrhosis with varices with active drinking and coffee-ground emesis found to have varices on EGD yesterday that I banded x 2 also with significant alcoholic gastritis
which was likely the cause of her coffee-ground emesis and a very large liver on imaging.
She does have some right sided abdominal discomfort which may be due to her significant hepatomegaly. On imaging her liver measures almost 24 cm x 17 cm. I reviewed the images. Her hepatic vasculature is patent on CT imaging. Pancreas was normal
-- Added sucralfate for alcoholic gastritis
-- Discussed soft diet starting tomorrow morning in the setting of bands which would continue soft diet for 1 week
-- Patient would like to discuss with psychiatry any options for treatment. She is not interested in inpatient however. Discussed how important alcohol cessation is for her
-- Add Ensure twice daily. Nutrition is one of the most important aspects of alcoholic hepatitis
-- Continue octreotide for 1 more day, twice daily PPI, adding super fate, monitor for withdrawal
-- Discussed with the patient and her [id number] that she needs to be treated for anxiety since she has been treating herself with alcohol
-- Outpatient, will do full cirrhosis workup.
Original Note:
Today's Communication / Plan
-
s/p EGD as noted with EV banding
MELD 17, DF 21 with control of 13-- repeat labs on AM
total 1 unit PRBC needed since admission hbg down to 6.9 then 8.2 today
cont Octreotide for 1 more day
cont IV abx with GI bleed and cirrhosis
cont PPI BID
thiamine and folate
monitor for withdrawal
ok for full liquids as tolerated
pt still with c/o pain may be gastritis, colitis but also fullness with severe HM with liver palpated to mid abdomen
stressed ETOH abstinence as admits to stress and relapse
family updated
Assessment / Plan
-
44-year-old female with past medical history of alcohol cirrhosis, alcohol pancreatitis, anxiety, depression, hypertension who presents to the emergency room with nausea, vomiting and abdominal pain. The patient had coffee-ground emesis. Patient
states her last EGD was approximately 1 year ago at [facility] and that showed 'small varices'. She is still on Coreg. She is still actively drinking up to 750 mL of vodka daily. Mild diffuse pancolitis seen on imaging, probable
mild portal colopathy. Presented with alcohol level of 343. hbg initial 9.7 with drop to 6.9 after admission. . UDS positive for opiates, barbiturates, benzodiazepines.
04/21/25 EGD - Grade II esophageal varices with stigmata of recent bleeding Banded x2- Alcoholic gastritis, characterized by friability and erythema Biopsied.- Duodenal mucosal atrophy. Biopsied. bx neg H pylori
04/22/25 CT A/p
1. SEVERE HEPATOMEGALY (possibly acute hepatitis) and SEVERE DIFFUSE HEPATIC STEATOSIS.
2. Extensive bands of enhancing fibrosis throughout the right lobe of the liver.
3. Mild hepatic cirrhosis.
4. PORTAL HYPERTENSION with a recanalized paraumbilical vein.
5. Moderate splenomegaly and perisplenic varices secondary to portal hypertension.
6. Mild diffuse pancolitis (probably mild portal colopathy).
Impression:
Upper GI bleed, coffee-ground emesis on admission ---EGD 04/21 with grade II EV with banding, ETOH gastritis with neg bx with hx prior EV
Cirrhosis secondary to alcohol +/- ETOH hepatitis with recent relapse
Alcohol abuse-> presented with alcohol level 343
severe hepatomegaly
abdominal pain
diffuse colitis on CT-- portal colopathy
anemia
thrombocytopenia
-hx EGD 2022 with ? gastritis also report EGD 10/2023 with small varices
-anemia- pancytopenia
-thrombocytopenia - worsening during admission
-anxiety/depression
-splenomegaly
-vaping
Plan:
s/p EGD as noted with EV banding
MELD 17, DF 21 with control of 13-- repeat labs on AM
total 1 unit PRBC needed since admission hbg down to 6.9 then 8.2 today
cont Octreotide for 1 more day
cont IV abx with GI bleed and cirrhosis
cont PPI BID
thiamine and folate
monitor for withdrawal
ok for full liquids as tolerated
pt still with c/o pain may be gastritis, colitis but also fullness with severe HM with liver palpated to mid abdomen
stressed ETOH abstinence as admits to stress and relapse
family updated
Subjective
Subjective
Date of Service: April 22, 2025
on clear diet no stools but typically stools every several days , some soreness with eating and c/o abdominal pain
Objective
Data Reviewed
Laboratory Data:
Laboratory Results
04/22/25 09:28
04/22/25 02:36
Laboratory Results
PT 16.7 Sec (11.4-14.6) H 04/20/25 09:26
INR 1.33 04/20/25 09:26
APTT 39.7 Sec (23.4-35.0) H 04/20/25 09:26
Magnesium 1.7 mg/dl (1.6-2.3) 04/20/25 09:26
Total Bilirubin 4.8 mg/dl (0.2-1.3) H 04/22/25 02:36
AST 103 U/L (14-36) H 04/22/25 02:36
ALT 28 U/L (0-35) 04/22/25 02:36
Alkaline Phosphatase 123 U/L (38-126) 04/22/25 02:36
Lipase 125 U/L (23-300) 04/19/25 15:37
Vital Signs and I&O:
Vital Signs
Temp Pulse Resp BP Pulse Ox
99.1 F 82 20 128/86 96
04/22/25 11:22 04/22/25 11:22 04/22/25 11:22 04/22/25 11:22 04/22/25 11:22
I&O
04/21/25 04/22/25 04/23/25
06:59 06:59 06:59
Intake Total 600 / 600 0 / 0 730 / 730
Balance 600 / 600 0 / 0 730 / 730
Physical Exam
Physical Exam
HEENT: Other (jaundice )
Cardiology: Normal Sinus Rhythm
Pulmonary: Clear
GI: Soft, Distended and Hepatomegaly (marked enlarge liver on exam )
Extremities: No Edema
Neuro: Non Focal and Other (some shakiness )
[2025-04-22] MEDS: HEPARIN 5000 UNITS SC (18:20)
[2025-04-22] MEDS: LUMINAL PO (18:33)
[2025-04-22] MEDS: VITAMIN B1 100 MG PO (20:44)
[2025-04-22] MEDS: NSS (PRESERVATIVE FREE) 10 ML IV (20:51)
[2025-04-22] MEDS: ZOFRAN 4 MG IV (22:40)
[2025-04-22] MEDS: CARAFATE SUSPENSION 1 GM PO (22:43)
[2025-04-23] VITALS (7 sets, daily range): BP systolic 119–143; BP diastolic 75–105
[2025-04-23] MEDS: HEPARIN 5000 UNITS SC ×4 (00:17→23:11)
[2025-04-23] MEDS: LUMINAL 32.4 MG PO ×3 (00:17→15:19)
[2025-04-23] MEDS: DILAUDID 0.5 MG IV ×4 (03:25→19:30)
[2025-04-23 05:18] LABS: Hematocrit 24.3 % (37.0-47.0); Hemoglobin 7.8 g/dL (12.0-16.0); Mean Corp Hgb Conc. 32.1 g/dL (33.0-37.0); Mean Corpuscular Volume 91.4 fL (81.0-99.0); Platelet Count 85 10^3/uL (130-400); Red Cell Dist. Width 18.9 % (11.5-14.5)
[2025-04-23 05:22] LABS: INR 1.40; PT 17.7 Sec (11.4-14.6)
[2025-04-23 05:36] LABS: ALT (SGPT) 25 U/L (0-35); AST (SGOT) 81 U/L (14-36); Albumin 3.2 g/dl (3.5-5.0); Alkaline Phosphatase 118 U/L (38-126); Blood Urea Nitrogen 3 mg/dl (7-17); Calcium 7.9 mg/dl (8.4-10.2); Carbon Dioxide 26 mmol/L (22-30); Chloride 104 mmol/L (98-107); Estimated Creatinine Clearance 103 ml/min; Glucose 107 mg/dl (70-99); Potassium 3.9 mmol/L (3.5-5.1); Sodium 136 mmol/L (135-145); Total Protein 6.8 g/dl (6.3-8.2); eGFR > 60.00
[2025-04-23] MEDS: CARAFATE SUSPENSION 1 GM PO ×4 (06:46→22:11)
[2025-04-23] MEDS: SANDOSTATIN 500.6 MCG IV (07:15)
[2025-04-23] MEDS: VITAMIN B1 100 MG PO ×2 (07:52→20:30)
[2025-04-23] MEDS: ZYRTEC 10 MG PO (07:52)
[2025-04-23] MEDS: COREG 3.125 MG PO ×2 (07:53→20:30)
[2025-04-23] MEDS: PROTONIX IV 40 MG IV ×2 (07:53→20:30)
[2025-04-23] MEDS: FOLVITE 1 MG PO (07:54)
[2025-04-23] MEDS: OXYCONTIN (CONTROLLED RELEASE) PO ×2 (07:54→08:06)
[2025-04-23] MEDS: NSS (PRESERVATIVE FREE) 10 ML IV ×2 (07:58→20:30)
[2025-04-23] MEDS: OXYCONTIN (CONTROLLED RELEASE) 10 MG PO (09:39)
[2025-04-23] MEDS: ROXICODONE 10 MG PO ×2 (11:40→17:33)
[2025-04-23] MEDS: ROCEPHIN 1000 MG IV (11:42)
[2025-04-23] MEDS: STERILE WATER FOR INJECTION 10 ML IV (11:42)
[2025-04-23] MEDS: ZOFRAN 4 MG IV ×2 (11:43→19:30)
--- NOTE | 2025-04-23 13:56 | CM ---
Chart reviewed and plan is to home when stable.
Plan; Home when stable.
--- NOTE | 2025-04-23 13:59 | W.PN.HOSP.TC ---
Today's Communication/Plan
-
At this medication
Octreotide drip per GI
Diet advancement per GI
Psychiatry evaluation
Possible discharge tomorrow
Assessment / Plan
Assessment / Plan
1. Abdominal pain
- Due to gastritis and hepatomegaly
- Pain is better controlled with Oxy CR schedule/Oxy IR as needed regimen
2. Acute blood loss anemia
Rule out GI bleed
History of varices
- GI evaluated and patient started on octreotide drip and PPI
- Started on Rocephin for upper GI bleed prophylaxis
- s/p EGD showing esophageal varices with recent stigmata of bleed, band placed. Also have changes of gastritis and some duodenal atrophy, has been biopsied.
- Hemoglobin 7.8 after 1 unit of blood transfusion for low hemoglobin of 6.9
- No reported luminal blood loss
- Diet advancement per GI
3. Alcohol use disorder
-Monitor for any alcohol withdrawal
- Shorten phenobarb taper, continue as needed Ativan
-Will patient wean off based on clinical course
-Last drink on 04/19
4. Alcoholic hepatitis
Likely cirrhosis
-Elevated LFT
-CT abdomen pelvis showing significant changes of hepatomegaly/splenomegaly/portal hypertension
-Avoid hepatotoxic medication
-Patient will require follow-up with hepatology postdischarge
-Liver enzyme is trending down.
5. Essential HTN
- maintain on coreg
6. Diffuse pruritus
Possible spider naevi
- Patient have focal red pinpoint lesion, questionable spiden naevi
- Diffuse pruritus likely explained by direct billirubinemia
7. Fever episode
- Patient had febrile episode yesterday night
- COVID check negative
- Already on Rocephin for GI prophylaxis
- Blood culture ordered and collected in the night
- Reason unclear, continue monitoring
8. Depression/anxiety
- Patient alcohol use disorder rooted in her untreated depression per patient/family
- Psychiatry consulted for evaluation as well
9. Abdominal wall hematoma
- small hematoma in abd wall, confirmed on abd US
DVT PPX - scd
Full code
Anticipated Discharge: Within 24 hours
Subjective/Interval History
-
Date of Service: April 23, 2025
Patient had episodic difficulty breathing and some lower chest/upper abdomen tightness
no nausea/vomiting
Objective Data
-
Labs:
Laboratory Results
04/23/25
04:49
WBC 3.0 L
Hgb 7.8 L
Hct 24.3 L
Plt Count 85 L
PT 17.7 H
INR 1.40
Sodium 136
Potassium 3.9
Chloride 104
Carbon Dioxide 26
BUN 3 L
Creatinine 0.5 L
Glucose 107 H
Calcium 7.9 L
Total Bilirubin 5.3 H
AST 81 H
ALT 25
Alkaline Phosphatase 118
Vital Signs:
Vital Signs
Temp Pulse Resp BP Pulse Ox
99.4 F 84 18 126/75 97
04/23/25 10:35 04/23/25 10:35 04/23/25 10:35 04/23/25 10:35 04/23/25 10:35
I&O
04/22/25 04/23/25 04/24/25
06:59 06:59 06:59
Intake Total 0 / 0 1210 / 1210
Balance 0 / 0 1210 / 1210
Review of Systems
-
Respiratory: Reports No Symptoms
Cardiac: Reports No Symptoms
Abdomen/GI: Reports No Symptoms
Physical Exam
-
General: No Apparent Distress and Comfortable
HEENT: Negative Oxygen
Respiratory: Clear to Auscultation
Cardiac: Regular Rhythm and S1/S2; Negative Murmur or Rub
GI: Soft, Tender and Other (Localized swelling on abd wall)
Musculoskeletal: No Edema
Neuro: Awake, Alert, Oriented, No Motor Deficits and Nonfocal/Grossly Intact
Psych: Calm
--- NOTE | 2025-04-23 16:19 | W.PN.GI.CBS2 ---
Addendum entered and electronically signed by Shelli Matthew DO 04/23/25 16:29:
FOLLOW UP APPT WITH ME ON 06/02/25 AT 9AM
WILL NEED TO SEE PCP FOR REGULAR LABS UNTIL THEN
Original Note:
Today's Communication / Plan
-
see today's note
Assessment / Plan
-
44-year-old female with past medical history of alcohol cirrhosis, alcohol pancreatitis, anxiety, depression, hypertension who presents to the emergency room with nausea, vomiting and abdominal pain. The patient had coffee-ground emesis. Patient
states her last EGD was approximately 1 year ago at [facility] and that showed 'small varices'. She is still on Coreg. She is still actively drinking up to 750 mL of vodka daily. Mild diffuse pancolitis seen on imaging, probable
mild portal colopathy. Presented with alcohol level of 343. hbg initial 9.7 with drop to 6.9 after admission. . UDS positive for opiates, barbiturates, benzodiazepines.
04/21/25 EGD - Grade II esophageal varices with stigmata of recent bleeding Banded x2- Alcoholic gastritis, characterized by friability and erythema Biopsied.- Duodenal mucosal atrophy. Biopsied. bx neg H pylori
04/22/25 CT A/p
1. SEVERE HEPATOMEGALY (possibly acute hepatitis) and SEVERE DIFFUSE HEPATIC STEATOSIS.
2. Extensive bands of enhancing fibrosis throughout the right lobe of the liver.
3. Mild hepatic cirrhosis.
4. PORTAL HYPERTENSION with a recanalized paraumbilical vein.
5. Moderate splenomegaly and perisplenic varices secondary to portal hypertension.
6. Mild diffuse pancolitis (probably mild portal colopathy).
Impression:
Upper GI bleed, coffee-ground emesis on admission ---EGD 04/21 with grade II EV with banding, ETOH gastritis with neg bx with hx prior EV
Cirrhosis secondary to alcohol +/- ETOH hepatitis with recent relapse
Alcohol abuse-> presented with alcohol level 343
severe hepatomegaly
abdominal pain
diffuse colitis on CT-- portal colopathy
anemia
thrombocytopenia
-hx EGD 2022 with ? gastritis also report EGD 10/2023 with small varices
-anemia- pancytopenia
-thrombocytopenia - worsening during admission
-anxiety/depression
-splenomegaly
-vaping
Plan:
s/p EGD as noted with EV banding x2 on 04/21
MELD 17, DF 21 with control of 13-- repeat labs on AM
total 1 unit PRBC needed since admission hbg down to 6.9 then 8.2
cont Octreotide for 1 more day
cont IV abx with GI bleed and cirrhosis
cont PPI BID
thiamine and folate
monitor for withdrawal
ok for full liquids as tolerated
pt still with c/o pain may be gastritis, colitis but also fullness with severe HM with liver palpated to mid abdomen
stressed ETOH abstinence as admits to stress and relapse
family updated
04/23/25 - bili trending up
still complaining of pain and pain with eating - taking narcotics
no BMs +flatus
encourage soft diet wtih good protein for her alcoholic hepatitis
not a candidate for steroids with coffee ground emesis
last day of octreotide, ceftriaxone for 5 days total
mildly elevated temps - neg blood cx, u/a no ascites - maybe from alcoholic hep
no withdrawal on thiamine folate
spoke to psych with good results
family at bedside
patient will need appt and would do full liver panel outpatient with hepatology follow up
Will give patient hepatology number to get on wait list
check INR/MELD labs tomorrow
Subjective
Subjective
Date of Service: April 23, 2025
Patient somewhat improved but still having abdominal pain requiring narcotics.
Objective
Data Reviewed
Laboratory Data:
Laboratory Results
04/23/25 04:49
04/23/25 04:49
Laboratory Results
PT 17.7 Sec (11.4-14.6) H 04/23/25 04:49
INR 1.40 04/23/25 04:49
APTT 39.7 Sec (23.4-35.0) H 04/20/25 09:26
Magnesium 1.7 mg/dl (1.6-2.3) 04/20/25 09:26
Total Bilirubin 5.3 mg/dl (0.2-1.3) H 04/23/25 04:49
AST 81 U/L (14-36) H 04/23/25 04:49
ALT 25 U/L (0-35) 04/23/25 04:49
Alkaline Phosphatase 118 U/L (38-126) 04/23/25 04:49
Lipase 125 U/L (23-300) 04/19/25 15:37
Vital Signs and I&O:
Vital Signs
Temp Pulse Resp BP Pulse Ox
99.2 F 92 18 136/105 95
04/23/25 15:15 04/23/25 15:15 04/23/25 15:15 04/23/25 15:15 04/23/25 15:15
I&O
04/22/25 04/23/25 04/24/25
06:59 06:59 06:59
Intake Total 0 / 0 1210 / 1210
Balance 0 / 0 1210 / 1210
Physical Exam
Physical Exam
HEENT: Anicteric (icteric)
GI: Tender and Hepatomegaly (massive hepatomegaly)
Extremities: No Edema
Neuro: Non Focal
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
[2025-04-23] MEDS: SANDOSTATIN IV (16:59)
[2025-04-23] MEDS: OXYCONTIN (CONTROLLED RELEASE) 15 MG PO (20:30)
[2025-04-24] VITALS (7 sets, daily range): BP systolic 104–148; BP diastolic 69–100
[2025-04-24] MEDS: DILAUDID 0.5 MG IV ×4 (01:30→20:17)
[2025-04-24 05:28] LABS: Hematocrit 25.7 % (37.0-47.0); Hemoglobin 8.4 g/dL (12.0-16.0); Mean Corp Hgb Conc. 32.7 g/dL (33.0-37.0); Mean Corpuscular Volume 91.5 fL (81.0-99.0); Platelet Count 92 10^3/uL (130-400); Red Cell Dist. Width 19.4 % (11.5-14.5)
[2025-04-24 05:29] LABS: INR 1.34; PT 17.1 Sec (11.4-14.6)
[2025-04-24 05:42] LABS: ALT (SGPT) 24 U/L (0-35); AST (SGOT) 73 U/L (14-36); Albumin 3.4 g/dl (3.5-5.0); Alkaline Phosphatase 118 U/L (38-126); Total Protein 7.1 g/dl (6.3-8.2)
[2025-04-24] MEDS: OXYCONTIN (CONTROLLED RELEASE) 15 MG PO (07:54)
[2025-04-24] MEDS: CARAFATE SUSPENSION 1 GM PO ×4 (07:54→21:17)
[2025-04-24] MEDS: FLUSH (NSS) 2 FLUSH IV ×2 (08:00→12:42)
[2025-04-24] MEDS: ZYRTEC 10 MG PO (08:05)
[2025-04-24] MEDS: VITAMIN B1 100 MG PO ×2 (08:05→19:33)
[2025-04-24] MEDS: FOLVITE 1 MG PO (08:06)
[2025-04-24] MEDS: HEPARIN 5000 UNITS SC ×2 (08:06→17:22)
[2025-04-24] MEDS: COREG 3.125 MG PO ×2 (08:06→19:34)
[2025-04-24] MEDS: PROTONIX IV 40 MG IV ×2 (08:07→19:33)
[2025-04-24] MEDS: NSS (PRESERVATIVE FREE) 10 ML IV ×2 (08:07→19:33)
--- NOTE | 2025-04-24 09:25 | W.PN.HOSP.TC ---
Today's Communication/Plan
-
d/c planning for today
[facility] evaluation pending
Assessment / Plan
Assessment / Plan
1. Abdominal pain
- Due to gastritis and hepatomegaly
- Pain is better controlled with Oxy CR schedule/Oxy IR as needed regimen
- patient continues to have pain and will need to f/u with pain specialist due to pain from oragnomegaly.
2. Acute blood loss anemia
Alcoholic gastritis
Upper GI bleed
History of varices
- GI evaluated and patient started on octreotide drip and PPI
- Started on Rocephin for upper GI bleed prophylaxis
- s/p EGD showing esophageal varices with recent stigmata of bleed, band placed. Also have changes of gastritis and some duodenal atrophy, has been biopsied.
- Hemoglobin 7.8 after 1 unit of blood transfusion for low hemoglobin of 6.9
- No reported luminal blood loss
- Diet advancement per GI
3. Alcohol use disorder
-Monitor for any alcohol withdrawal
-Finished short phenobarb protocol
-Will patient wean off based on clinical course
-Last drink on 04/19
4. Alcoholic hepatitis
Likely cirrhosis
-Elevated LFT
-CT abdomen pelvis showing significant changes of hepatomegaly/splenomegaly/portal hypertension
-Avoid hepatotoxic medication
-Patient will require follow-up with hepatology postdischarge
-Liver enzyme is trending down.
5. Essential HTN
- maintain on coreg
6. Diffuse pruritus
Possible spider naevi
- Patient have focal red pinpoint lesion, questionable spiden naevi
- Diffuse pruritus likely explained by direct billirubinemia
7. Fever episode
- Patient had febrile episode yesterday night
- COVID check negative
- Already on Rocephin for GI prophylaxis
- Blood culture ordered and collected in the night
- Reason unclear, continue monitoring
8. Depression/anxiety
- Patient alcohol use disorder rooted in her untreated depression per patient/family
- Psychiatry consulted and recommended again imitation of anti-depressant yet
- [facility] consulted still to evaluate patient
9. Abdominal wall hematoma
- small hematoma in abd wall, confirmed on abd US
DVT PPX - scd
Full code
Anticipated Discharge: Today
Subjective/Interval History
-
Date of Service: April 24, 2025
complains of pain and limited apetite
no nausea/vomiting
afebrile overnight
Objective Data
-
Labs:
Laboratory Results
04/24/25
04:42
WBC 3.4 L
Hgb 8.4 L
Hct 25.7 L
Plt Count 92 L
PT 17.1 H
INR 1.34
Total Bilirubin 6.0 H
AST 73 H
ALT 24
Alkaline Phosphatase 118
Vital Signs:
Vital Signs
Temp Pulse Resp BP Pulse Ox
98.9 F 88 21 148/100 97
04/24/25 07:20 04/24/25 07:20 04/24/25 07:20 04/24/25 07:20 04/24/25 07:20
I&O
04/23/25 04/24/25 04/25/25
06:59 06:59 06:59
Intake Total 1210 / 1210 720 / 720
Balance 1210 / 1210 720 / 720
Review of Systems
-
Respiratory: Reports No Symptoms
Cardiac: Reports No Symptoms
Abdomen/GI: Reports No Symptoms
Physical Exam
-
General: No Apparent Distress and Comfortable
HEENT: Negative Oxygen
Respiratory: Clear to Auscultation
Cardiac: Regular Rhythm and S1/S2; Negative Murmur or Rub
GI: Soft, Tender and Other (Localized swelling on abd wall)
Musculoskeletal: No Edema
Neuro: Awake, Alert, Oriented, No Motor Deficits and Nonfocal/Grossly Intact
Psych: Calm
[2025-04-24] MEDS: ROXICODONE 10 MG PO ×2 (10:02→18:56)
--- NOTE | 2025-04-24 10:22 | CM ---
Addendum entered by Deidra Elaine 04/24/25 13:09:
Sukhwinder from [facility] spoke with patient and patient is agreeable to outpatient follow up through [facility].
Original Note:
reliability manager spoke with patient regarding referral to [facility] and nurse outreach case manager spoke with [facility] and they will reach out to patient. Patient asked about insurance options and patient was provided with information on [employer] and [employer].
PLan; Home at discharge, waiting on [facility] evaluation.
--- NOTE | 2025-04-24 11:47 | W.PN.GI.CBS2 ---
Addendum entered and electronically signed by Tristen Figueroa DO 04/24/25 14:15:
I saw and examined the patient.
The SOFTWARE DATABASE ARCHITECT's note was reviewed and I agree with the note.
Comment: Improving abdominal pain and suspect her previous abdominal discomfort secondary to significant hepatomegaly (liver capsular stretch?). Otherwise, LFTs roughly unchanged and slight increase in T Bili however not a candidate for steroids
given her recent GI bleed. Agree with continued antibiotics for 7-day course and needs strict EtOH cessation as an outpatient. Ultimately, would benefit from EtOH rehab as this remains paramount as well as ensuring good nutrition (Boosts, ensures,
etc). Needs close outpatient f/u with both GI and Hepatology (Dr Spence) for her alcoholic-associated liver disease. See rest of care as outlined below.
GI will sign-off, please recontact with any questions or concerns.
Original Note:
Today's Communication / Plan
-
s/p EGD as noted with EV banding x2 on 04/21
slight increased bili but feeling a little better and for discharge today
I gave slip for labs next week -- with some rise in bili last [address] Matthew in June and contract given for Dr. Spence
stressed need for ETOH abstinence and avoidance of liver toxic meds
call with problems
family updated
need full liver work up outpatient
good nutrition
discharge med as noted per medical team
reviewed with call or return for any recurrent problems
Assessment / Plan
-
44-year-old female with past medical history of alcohol cirrhosis, alcohol pancreatitis, anxiety, depression, hypertension who presents to the emergency room with nausea, vomiting and abdominal pain. The patient had coffee-ground emesis. Patient
states her last EGD was approximately 1 year ago at [facility] and that showed 'small varices'. She is still on Coreg. She is still actively drinking up to 750 mL of vodka daily. Mild diffuse pancolitis seen on imaging, probable
mild portal colopathy. Presented with alcohol level of 343. hbg initial 9.7 with drop to 6.9 after admission. . UDS positive for opiates, barbiturates, benzodiazepines.
04/21/25 EGD - Grade II esophageal varices with stigmata of recent bleeding Banded x2- Alcoholic gastritis, characterized by friability and erythema Biopsied.- Duodenal mucosal atrophy. Biopsied. bx neg H pylori
04/22/25 CT A/p
1. SEVERE HEPATOMEGALY (possibly acute hepatitis) and SEVERE DIFFUSE HEPATIC STEATOSIS.
2. Extensive bands of enhancing fibrosis throughout the right lobe of the liver.
3. Mild hepatic cirrhosis.
4. PORTAL HYPERTENSION with a recanalized paraumbilical vein.
5. Moderate splenomegaly and perisplenic varices secondary to portal hypertension.
6. Mild diffuse pancolitis (probably mild portal colopathy).
Impression:
Upper GI bleed, coffee-ground emesis on admission ---EGD 04/21 with grade II EV with banding, ETOH gastritis with neg bx with hx prior EV
Cirrhosis secondary to alcohol +/- ETOH hepatitis with recent relapse
Alcohol abuse-> presented with alcohol level 343
severe hepatomegaly
abdominal pain
diffuse colitis on CT-- portal colopathy
anemia
thrombocytopenia
Plan:
s/p EGD as noted with EV banding x2 on 04/21
slight increased bili but feeling a little better and for discharge today
I gave slip for labs next week -- with some rise in bili last [address] Matthew in June and contract given for Dr. Spence
stressed need for ETOH abstinence and avoidance of liver toxic meds
call with problems
family updated
need full liver work up outpatient
good nutrition
discharge med as noted per medical team
reviewed with call or return for any recurrent problems
Subjective
Subjective
Date of Service: April 24, 2025
for discharge today
Objective
Data Reviewed
Laboratory Data:
Laboratory Results
04/24/25 04:42
04/23/25 04:49
Laboratory Results
PT 17.1 Sec (11.4-14.6) H 04/24/25 04:42
INR 1.34 04/24/25 04:42
APTT 39.7 Sec (23.4-35.0) H 04/20/25 09:26
Magnesium 1.7 mg/dl (1.6-2.3) 04/20/25 09:26
Total Bilirubin 6.0 mg/dl (0.2-1.3) H 04/24/25 04:42
AST 73 U/L (14-36) H 04/24/25 04:42
ALT 24 U/L (0-35) 04/24/25 04:42
Alkaline Phosphatase 118 U/L (38-126) 04/24/25 04:42
Lipase 125 U/L (23-300) 04/19/25 15:37
Vital Signs and I&O:
Vital Signs
Temp Pulse Resp BP Pulse Ox
98.9 F 88 21 148/100 97
04/24/25 07:20 04/24/25 07:20 04/24/25 07:20 04/24/25 07:20 04/24/25 07:20
I&O
04/23/25 04/24/25 04/25/25
06:59 06:59 06:59
Intake Total 1210 / 1210 720 / 720
Balance 1210 / 1210 720 / 720
Physical Exam
Physical Exam
HEENT: Other (jaundice)
Cardiology: Normal Sinus Rhythm
Pulmonary: Clear
GI: Soft, Distended, Tender, Hepatomegaly and Splenomegaly
Extremities: Edema (trace )
Neuro: Non Focal
[2025-04-24] MEDS: STERILE WATER FOR INJECTION 10 ML IV (12:41)
[2025-04-24] MEDS: ROCEPHIN 1000 MG IV (12:48)
--- NOTE | 2025-04-24 13:18 | W.PN.UPDATE ---
Update Note
Progress Note Update
patient seen chart reviewed. discussed with nursing mother and sister in room. patient decribing that she is in pain. she is fearful that others here think she is med seeking rather than truly in pain. she was to be dc today family expressed great
concern that since she is still in pain this is a recipe for relapse. i did talk to dr gomes and she can remain for a few days longer. she is getting set up for virtual therapy and etoh rehab treatment on line but that is not yet set up. we
discussed use of gabapentin for pain and anxiety. she has taken it before and it has been helpful to her. her kidney function is okay begin w 200 mg tid for now. will follow.
[2025-04-24] MEDS: OXYCONTIN (CONTROLLED RELEASE) 20 MG PO (14:41)
[2025-04-24] MEDS: NEURONTIN 200 MG PO ×2 (17:22→21:17)
[2025-04-24] MEDS: ZOFRAN 4 MG IV (20:17)
[2025-04-25] MEDS: HEPARIN 5000 UNITS SC ×3 (00:17→16:51)
[2025-04-25] MEDS: OXYCONTIN (CONTROLLED RELEASE) 20 MG PO ×2 (00:18→12:18)
[2025-04-25 07:00] VITALS: BP 113/74
[2025-04-25] MEDS: ROXICODONE 10 MG PO ×4 (07:36→22:59)
[2025-04-25] MEDS: CARAFATE SUSPENSION 1 GM PO ×4 (07:38→21:34)
[2025-04-25] MEDS: DILAUDID 0.5 MG IV ×3 (08:58→20:06)
[2025-04-25] MEDS: COREG 3.125 MG PO ×2 (09:01→20:42)
[2025-04-25] MEDS: NEURONTIN 200 MG PO ×3 (09:01→21:34)
[2025-04-25] MEDS: PROTONIX IV 40 MG IV ×2 (09:02→20:42)
[2025-04-25] MEDS: NSS (PRESERVATIVE FREE) 10 ML IV ×2 (09:02→20:42)
[2025-04-25] MEDS: FOLVITE 1 MG PO (09:02)
[2025-04-25] MEDS: VITAMIN B1 100 MG PO ×2 (09:03→20:42)
[2025-04-25] MEDS: ZYRTEC 10 MG PO (09:03)
--- NOTE | 2025-04-25 09:19 | W.PN.HOSP.TC ---
Today's Communication/Plan
-
f/ lab
increased oral pain meds
monitor for 24-48hrs further before discharge
Assessment / Plan
Assessment / Plan
1. Abdominal pain - Improved
- Due to gastritis and hepatomegaly
- patient continues to have pain and will need to f/u with pain specialist due to pain from organomegaly.
- Pain medication increased further yesterday, continues to require breakthrough Dilaudid.
2. Acute blood loss anemia
Alcoholic gastritis
Upper GI bleed
History of varices
- GI evaluated and patient started on octreotide drip and PPI
- Started on Rocephin for upper GI bleed prophylaxis
- s/p EGD showing esophageal varices with recent stigmata of bleed, band placed. Also have changes of gastritis and some duodenal atrophy, has been biopsied.
- Hemoglobin 7.8 after 1 unit of blood transfusion for low hemoglobin of 6.9
- No reported luminal blood loss
- Diet advancement per GI
3. Alcohol use disorder
-Monitor for any alcohol withdrawal
-Finished short phenobarb protocol
-Will patient wean off based on clinical course
-Last drink on 04/19
-Psych consulted of patient having alcohol withdrawal vs relapse of alchol use to self treat pain at home, requested better pain control before patient can be discharged .
4. Alcoholic hepatitis
Likely cirrhosis
-Elevated LFT
-CT abdomen pelvis showing significant changes of hepatomegaly/splenomegaly/portal hypertension
-Avoid hepatotoxic medication
-Patient will require follow-up with hepatology postdischarge
-Liver enzyme is trending down.
5. Essential HTN
- maintain on coreg
6. Diffuse pruritus
Possible spider naevi
- Patient have focal red pinpoint lesion, questionable spider naevi
- Diffuse pruritus likely explained by direct bilirubinemia
7. Fever episode
- Patient had febrile episode yesterday night
- COVID check negative
- Already on Rocephin for GI prophylaxis
- Blood culture ordered and collected in the night
- Reason unclear, continue monitoring
8. Depression/anxiety
- Patient alcohol use disorder rooted in her untreated depression per patient/family
- Psychiatry consulted and recommended again imitation of anti-depressant yet
- [facility] evaluation requested by psychiatry
9. Abdominal wall hematoma
- small hematoma in abd wall, confirmed on abd US
DVT PPX - scd
Full code
Anticipated Discharge: 24 - 48 hours
Subjective/Interval History
-
Date of Service: April 25, 2025
patient pain better controlled , still have some discomfort
reported having small BM
some nausea/ no vomiting
Objective Data
-
Labs:
Laboratory Results
04/25/25
09:14
WBC Pending
Hgb Pending
Hct Pending
Plt Count Pending
Sodium Pending
Potassium Pending
Chloride Pending
Carbon Dioxide Pending
BUN Pending
Creatinine Pending
Glucose Pending
Calcium Pending
Vital Signs:
Vital Signs
Temp Pulse Resp BP Pulse Ox
99.9 F 91 20 113/74 97
04/25/25 07:00 04/25/25 07:00 04/25/25 07:00 04/25/25 07:00 04/25/25 07:00
I&O
04/24/25 04/25/25 04/26/25
06:59 06:59 06:59
Intake Total 720 / 720
Balance 720 / 720
Review of Systems
-
Respiratory: Reports No Symptoms
Cardiac: Reports No Symptoms
Abdomen/GI: Reports Abdominal Pain and Nausea; Denies Vomiting
Physical Exam
-
General: No Apparent Distress and Comfortable
HEENT: Negative Oxygen
Neuro: Awake, Alert, Oriented, No Motor Deficits and Nonfocal/Grossly Intact
Psych: Calm
[2025-04-25 10:45] LABS: Hematocrit 27.2 % (37.0-47.0); Hemoglobin 8.6 g/dL (12.0-16.0); Mean Corp Hgb Conc. 31.6 g/dL (33.0-37.0); Mean Corpuscular Volume 92.2 fL (81.0-99.0); Platelet Count 115 10^3/uL (130-400); Red Cell Dist. Width 19.9 % (11.5-14.5)
[2025-04-25 11:00] LABS: Blood Urea Nitrogen 5 mg/dl (7-17); Calcium 8.2 mg/dl (8.4-10.2); Carbon Dioxide 23 mmol/L (22-30); Chloride 103 mmol/L (98-107); Estimated Creatinine Clearance 103 ml/min; Glucose 144 mg/dl (70-99); Potassium 3.8 mmol/L (3.5-5.1); Sodium 135 mmol/L (135-145); eGFR > 60.00
[2025-04-25] MEDS: COLACE 100 MG PO ×2 (12:08→20:42)
--- NOTE | 2025-04-25 12:30 | VATNOTE ---
Unable to flush midline, residual backflow of blood in tube occluding line. Discontinued, restarted peripheral.
--- NOTE | 2025-04-25 12:57 | W.PN.UPDATE ---
Update Note
Progress Note Update
patient seen chart reviewed. family present at bedside including sister and mom . patient reports feeling hopeful that with some help she will be able to get sober and resume her life. she was in some pain last evening. says there was some issue
with her getting meds on time and it set her back pain serna earlier this am but when i saw her at midday she felt she was back on track. she has started gabapentin for anxiety , pain and so far feels it is promising. mom interjected here that she
feels jose needs to be rx for depression. this launched a discussion of whether to start antidep but jose prefers not to at this point as she has not had much + to report except w paxil but that caused weight gain. there is also an argument to be
made that as her physical condition improves and she gets sober her mood will improve without antidepressants. she has an appt to begin therapy with someone experienced in treated mood disorder and addiction on sunday. will check in w her tomorrow
[2025-04-25] MEDS: STERILE WATER FOR INJECTION IV (13:10)
[2025-04-25] MEDS: ROCEPHIN IV (13:10)
[2025-04-25] MEDS: ZOFRAN 4 MG IV ×2 (13:39→20:06)
[2025-04-25 15:00] VITALS: BP 99/66
--- NOTE | 2025-04-25 15:00 | PTCARENOTE ---
1400 When entered room pt is crying and stating that pain abdomen is more on left side now, mention pain was new.Pt c/o nausea. IV dilaudid and IV zofran given as ordered. Dr. Dinh Escalante notified. ordered Cat scan of abdomen. Explain to pt.
[2025-04-25] MEDS: OMNIPAQUE 50 ML PO (16:50)
[2025-04-25 23:24] VITALS: BP 90/62
[2025-04-26] MEDS: OXYCONTIN (CONTROLLED RELEASE) 20 MG PO ×2 (00:02→12:13)
[2025-04-26] MEDS: HEPARIN 5000 UNITS SC ×4 (00:02→23:12)
[2025-04-26] MEDS: ROXICODONE 10 MG PO ×4 (04:42→20:38)
[2025-04-26 07:30] VITALS: BP 137/73
[2025-04-26] MEDS: DILAUDID 0.5 MG IV ×4 (07:57→23:14)
[2025-04-26] MEDS: NEURONTIN 200 MG PO (08:00)
[2025-04-26] MEDS: CARAFATE SUSPENSION 1 GM PO ×4 (08:00→20:38)
[2025-04-26] MEDS: COREG 3.125 MG PO ×2 (08:00→19:59)
[2025-04-26] MEDS: FOLVITE 1 MG PO (08:00)
[2025-04-26] MEDS: COLACE 100 MG PO ×2 (08:00→19:59)
[2025-04-26] MEDS: VITAMIN B1 100 MG PO ×2 (08:00→19:59)
[2025-04-26] MEDS: ZYRTEC 10 MG PO (08:00)
[2025-04-26] MEDS: PROTONIX IV 40 MG IV ×2 (08:01→20:00)
[2025-04-26] MEDS: NSS (PRESERVATIVE FREE) 10 ML IV ×2 (08:01→20:00)
--- NOTE | 2025-04-26 12:34 | W.PN.HOSP.TC ---
Today's Communication/Plan
-
Continue current care.
Assessment / Plan
Assessment / Plan
44-year-old woman with past medical history significant for:
alcohol abuse,
alcoholic hepatitis,
pancreatitis
was recently admitted for acute alcohol withdrawal status post phenobarbital taper who now presented to the Emergency Department with abdominal pain with intractable nausea vomiting. Patient started drinking again about 2 weeks ago. Labs
essentially similar to prior. CT scan shows likely hepatitis was mostly unchanged from prior. Clinical picture was consistent with acute alcoholic gastritis versus acute hepatitis. In similar fashion to prior discriminant function is negative.
She was not in acute withdrawal at this time.
1. Abdominal pain - Improved, but not resolved
- Due to gastritis and hepatomegaly
- patient continues to have pain and will need to f/u with pain specialist due to pain from organomegaly.
- Pain medication increased further yesterday, continues to require breakthrough Dilaudid.
Hopefully ready for d/c on 04/27, if she can have appointment with pain management
When ready for discharge, please calculate amount oral pain meds needed from time of discharge to appointment with pain management clinic.
2. Acute blood loss anemia complicated by
Alcoholic gastritis
Upper GI bleed
History of varices
- GI evaluated and patient started on octreotide drip and PPI
- Started on Rocephin for upper GI bleed prophylaxis
- s/p EGD showing esophageal varices with recent stigmata of bleed, band placed. Also have changes of gastritis and some duodenal atrophy, has been biopsied.
- Hemoglobin 7.8 after 1 unit of blood transfusion for low hemoglobin of 6.9
- No reported luminal blood loss
- Diet advancement per GI
3. Alcohol use disorder
-Monitor for any alcohol withdrawal
-Finished short phenobarb protocol
-weaned off based on clinical course
-Last drink on 04/19
-Psych consulted of patient having alcohol withdrawal vs relapse of alchol use to self treat pain at home, requested better pain control before patient can be discharged .
4. Alcoholic hepatitis - Likely cirrhosis
-Elevated LFT
-CT abdomen pelvis showing significant changes of hepatomegaly/splenomegaly/portal hypertension
-Avoid hepatotoxic medication
-Patient will require follow-up with hepatology postdischarge
-Liver enzyme is trending down.
5. Essential HTN
- maintain on coreg
6. Diffuse pruritus
Possible spider naevi
- Patient have focal red pinpoint lesion, questionable spider naevi
- Diffuse pruritus likely explained by direct bilirubinemia
7. Fever episode
- Patient had febrile episode
- COVID check negative
- Already on Rocephin for GI prophylaxis
- Blood culture ordered and collected - no growth after 4 days
- Reason unclear, continue monitoring
8. Depression/anxiety
- Patient alcohol use disorder rooted in her untreated depression per patient/family
- Psychiatry consulted and recommended again imitation of anti-depressant yet
- [facility] evaluation requested by psychiatry
9. Abdominal wall hematoma
- small hematoma in abd wall, confirmed on abd US
DVT PPX - scd
Full code
Anticipated Discharge: 24 - 48 hours
Subjective/Interval History
-
Date of Service: April 26, 2025
Continues to have pain on/off requiring IV dilaudid.
Objective Data
-
Vital Signs:
Vital Signs
Temp Pulse Resp BP Pulse Ox
99 F 87 22 137/73 95
04/26/25 07:30 04/26/25 07:30 04/26/25 07:30 04/26/25 08:00 04/26/25 07:30
I&O
04/25/25 04/26/25 04/27/25
06:59 06:59 06:59
Intake Total 480 / 480
Balance 480 / 480
Review of Systems
-
History Source: Patient
All other systems: Reviewed and negative
Abdomen/GI: Reports Abdominal Pain
Physical Exam
-
General: Well Developed, Well Nourished, No Apparent Distress and Comfortable
HEENT: Normocephalic, Nose Appears Normal and Ears Appear Normal
Respiratory: Clear to Auscultation
Cardiac: Regular Rhythm and S1/S2
GI: Tender, Distended and Organomegaly
Musculoskeletal: No Clubbing, No Cyanosis and No Edema
Skin: Warm, Dry and Jaundice
Neuro: Awake, Alert, Oriented and AO x 3
Psych: Calm
Data Reviewed
-
Labs: Labs Reviewed by me
[2025-04-26] MEDS: ZOFRAN 4 MG IV (13:23)
--- NOTE | 2025-04-26 14:29 | W.PN.UPDATE ---
Update Note
Progress Note Update
patient seen chart reviewed. mother and sister at bedside. patient was in a lot of pain earlier and last evening. she spoke with dr mcneil this am who emphasized the need for pain mgt and also suggested she consider medical mj. i have some concerns
about the latter given her clearly addictive personality and said so. i did tell her if she does opt for this it should be under the supervision of someone knowledgeable about medical cannabis. we did discuss increase in gabapentin to 300 mg bid
and 600 mg q hs. the latter hopefully might help w sleep which has always been an issue. we discussed at length the absolute need for sobriety...identifying relapse triggers and making a plan as to how to deal with triggers. she identified
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 she has already identified 12 step meetings she can
attend via zoom as a crowded room for aa or na is a trigger. mom will be staying with her for a few weeks. mom and sis live in [place] [facility]. she has appt tomorrow with a therapist experienced in depression and substance abuse via teams. psych will sign
off. she is likely being dc tomorrow
[2025-04-26] MEDS: NEURONTIN 300 MG PO (15:46)
[2025-04-26 17:00] VITALS: BP 117/67
[2025-04-26] MEDS: ROXICODONE 5 MG PO (20:09)
[2025-04-26] MEDS: NEURONTIN 600 MG PO (20:44)
[2025-04-26 23:30] VITALS: BP 110/66
[2025-04-27] MEDS: ROXICODONE 5 MG PO ×4 (00:11→19:20)
[2025-04-27] MEDS: OXYCONTIN (CONTROLLED RELEASE) 20 MG PO ×2 (00:11→12:19)
[2025-04-27] MEDS: ROXICODONE 10 MG PO ×5 (00:44→23:13)
[2025-04-27] MEDS: DILAUDID 0.5 MG IV ×3 (05:25→22:31)
[2025-04-27] MEDS: CARAFATE SUSPENSION 1 GM PO ×4 (06:35→21:09)
[2025-04-27 07:55] VITALS: BP 114/79
[2025-04-27 07:58] VITALS: BP 114/79
[2025-04-27] MEDS: NEURONTIN 300 MG PO ×2 (09:40→16:22)
[2025-04-27] MEDS: COREG 3.125 MG PO ×2 (09:40→19:20)
[2025-04-27] MEDS: COLACE 100 MG PO ×2 (09:41→19:20)
[2025-04-27] MEDS: FOLVITE 1 MG PO (09:41)
[2025-04-27] MEDS: ZYRTEC 10 MG PO (09:41)
[2025-04-27] MEDS: HEPARIN 5000 UNITS SC ×3 (09:42→23:14)
[2025-04-27] MEDS: PROTONIX IV 40 MG IV ×2 (09:43→19:21)
[2025-04-27] MEDS: VITAMIN B1 100 MG PO ×2 (09:43→19:24)
[2025-04-27] MEDS: NSS (PRESERVATIVE FREE) 10 ML IV ×2 (09:43→19:21)
--- NOTE | 2025-04-27 12:30 | CM ---
client support manager met with patient this am, referral was sent to [facility], they have provided patient with outpatient follow up treatment options. Per physician notes patient to follow up with her own therapist/counselor. Patient is looking for pain
management physician in network with her insurance, advised patient to contact her insurance and provided a couple of options, also list of PCP's in [place] area also provided to patient as requested.
Plan; Home when stable.
--- NOTE | 2025-04-27 13:33 | W.PN.HOSP.TC ---
Addendum entered and electronically signed by Bebo Pal MD 04/27/25 15:45:
Repeat labs with mild hyponatremia likely secondary to pain.
Also with pancytopenia likely secondary to alcohol abuse seems chronic.
Original Note:
Today's Communication/Plan
-
Check repeat labs
Await psych to see patient
Case management following
Plan for tentative DC later today
Assessment / Plan
Assessment / Plan
44-year-old woman with past medical history significant for:
alcohol abuse,
alcoholic hepatitis,
pancreatitis
was recently admitted for acute alcohol withdrawal status post phenobarbital taper who now presented to the Emergency Department with abdominal pain with intractable nausea vomiting. Patient started drinking again about 2 weeks ago. Labs
essentially similar to prior. CT scan shows likely hepatitis was mostly unchanged from prior. Clinical picture was consistent with acute alcoholic gastritis versus acute hepatitis. In similar fashion to prior discriminant function is negative.
She was not in acute withdrawal at this time.
1. Abdominal pain
- Due to gastritis and hepatomegaly and hepatic
- patient continues to have pain and will need to f/u with pain specialist due to pain from organomegaly.
- Pain medication and medication which was adjusted over the weekend. Currently on OxyContin 20 mg Q12 with breakthrough oxycodone. DC IV dilaudid. Will need to follow-up with primary doctor for further medication adjustment and also with pain
management. This was discussed with patient and family at bedside.
2. Acute blood loss anemia complicated by
Alcoholic gastritis
Upper GI bleed
History of varices
- GI evaluated and patient started on octreotide drip and PPI
- Started on Rocephin for upper GI bleed prophylaxis-off abx now
- s/p EGD showing esophageal varices with recent stigmata of bleed, band placed. Also have changes of gastritis and some duodenal atrophy, has been biopsied.
- Hemoglobin 7.8 after 1 unit of blood transfusion for low hemoglobin of 6.9
- No reported luminal blood loss
- Diet advancement per GI
3. Alcohol use disorder
-Monitor for any alcohol withdrawal
-Finished short phenobarb protocol
-weaned off based on clinical course
-Last drink on 04/19
-Patient and family wants to discuss with psych prior to discharge.
4. Alcoholic hepatitis - Likely cirrhosis
-Elevated LFT
-CT abdomen pelvis showing significant changes of hepatomegaly/splenomegaly/portal hypertension
-Avoid hepatotoxic medication
-Patient will require follow-up with hepatology postdischarge
-Liver enzyme is trending down.
5. Essential HTN
- maintain on coreg
6.Diffuse pruritus
Possible spider naevi
- Patient have focal red pinpoint lesion, questionable spider naevi
- Diffuse pruritus likely explained by direct bilirubinemia
7. Fever episode
- Patient had febrile episode
- COVID check negative
- Already on Rocephin for GI prophylaxis
- Blood culture ordered and collected - no growth
-Remains afebrile
8. Depression/anxiety
- Patient alcohol use disorder rooted in her untreated depression per patient/family
- Psychiatry consulted and recommended again imitation of anti-depressant yet
- [facility] evaluation requested by psychiatry
9. Abdominal wall hematoma
- small hematoma in abd wall, confirmed on abd US
DVT PPX - scd
Full code
Discussed with family members at bedside
Anticipated Discharge: Today
Subjective/Interval History
-
Date of Service: April 27, 2025
On laptop
Patient received pain medication earlier today
Objective Data
-
Labs:
Laboratory Results
04/27/25
13:33
WBC Pending
Hgb Pending
Hct Pending
Plt Count Pending
PT Pending
INR Pending
Sodium Pending
Potassium Pending
Chloride Pending
Carbon Dioxide Pending
BUN Pending
Creatinine Pending
Glucose Pending
Calcium Pending
Total Bilirubin Pending
AST Pending
ALT Pending
Alkaline Phosphatase Pending
Vital Signs:
Vital Signs
Temp Pulse Resp BP Pulse Ox
97.8 F 88 16 114/79 96
04/27/25 07:55 04/27/25 07:55 04/27/25 07:55 04/27/25 07:55 04/27/25 07:55
I&O
04/26/25 04/27/25 04/28/25
06:59 06:59 06:59
Intake Total 480 / 480 1500 / 1500
Balance 480 / 480 1500 / 1500
Physical Exam
-
General: Well Developed, Well Nourished, No Apparent Distress and Comfortable
HEENT: Normocephalic, Nose Appears Normal and Ears Appear Normal
Respiratory: Clear to Auscultation
Cardiac: Regular Rhythm and S1/S2
GI: Tender, Distended and Organomegaly
Musculoskeletal: No Clubbing, No Cyanosis and No Edema
Skin: Warm, Dry and Jaundice
Neuro: Awake, Alert, Oriented and AO x 3
Psych: Calm
--- NOTE | 2025-04-27 14:25 | PN.CDI ---
CDI
- -
CDI:
Physician Documentation Request
Admit Date: 04/19/25 19:47
Dear Doctor Demarco,
Please review the following and provide your response in the progress notes.
Clinical Indicators:
- Patient admit for abdominal pain alcoholic hepatitis, cirrhosis
- 04/19 H&P PMH 'significant for alcohol abuse, alcoholic hepatitis'
- 04/27 PN 'acute blood loss anemia' - one unit PRBC given
- Labs as follow:
Laboratory Tests
04/20/25 04/21/25 04/22/25
09:26 07:45 02:36
WBC 3.6 L 2.5 L 2.6 L
RBC 2.66 L 2.62 L 2.42 L
Hgb 7.6 L D 7.6 L 6.9 L*
Plt Count 109 L D 81 L 79 L
04/23/25 04/24/25 04/25/25
04:49 04:42 10:26
WBC 3.0 L 3.4 L 2.9 L
RBC 2.66 L 2.81 L 2.95 L
Hgb 7.8 L 8.4 L 8.6 L
Plt Count 85 L 92 L 115 L D
Please provide a diagnosis for the above lab values that were monitored and treatment rendered:
Pancytopenia
Clinically insignificant abnormal lab values
Other (please specify)
Use of terms such as suspected, likely, concern for, or probable (associated with a specific diagnosis that is being evaluated, monitored, or treated as if it exists) are acceptable and can be coded in the inpatient setting, when documented at the
time of discharge.
Thank you,
Antony Garcia RN
CDI Specialist
Please use your independent medical judgment in providing your response.
[2025-04-27 14:55] LABS: Hematocrit 25.8 % (37.0-47.0); Hemoglobin 8.1 g/dL (12.0-16.0); Mean Corp Hgb Conc. 31.4 g/dL (33.0-37.0); Mean Corpuscular Volume 91.2 fL (81.0-99.0); Nucleated Red Blood Cells % 0 %; Platelet Count 103 10^3/uL (130-400); Red Cell Dist. Width 19.7 % (11.5-14.5)
[2025-04-27 14:59] LABS: INR 1.33; PT 17.0 Sec (11.4-14.6)
--- NOTE | 2025-04-27 15:00 | PTCARENOTE ---
WBC low value 2.3- hospitalist notified
[2025-04-27 15:15] LABS: ALT (SGPT) 28 U/L (0-35); AST (SGOT) 104 U/L (14-36); Albumin 3.5 g/dl (3.5-5.0); Alkaline Phosphatase 158 U/L (38-126); Blood Urea Nitrogen 3 mg/dl (7-17); Calcium 8.0 mg/dl (8.4-10.2); Carbon Dioxide 23 mmol/L (22-30); Chloride 104 mmol/L (98-107); Estimated Creatinine Clearance 103 ml/min; Glucose 113 mg/dl (70-99); Potassium 3.9 mmol/L (3.5-5.1); Sodium 132 mmol/L (135-145); Total Protein 7.7 g/dl (6.3-8.2); eGFR > 60.00
[2025-04-27 15:56] VITALS: BP 108/65
[2025-04-27] MEDS: NEURONTIN 600 MG PO (21:09)
[2025-04-27] MEDS: ZOFRAN 4 MG IV (22:36)
[2025-04-27 23:34] VITALS: BP 100/55
[2025-04-28] MEDS: OXYCONTIN (CONTROLLED RELEASE) 20 MG PO ×2 (00:01→12:03)
[2025-04-28] MEDS: DILAUDID 0.5 MG IV (04:33)
[2025-04-28] MEDS: ROXICODONE 10 MG PO ×2 (04:59→09:55)
[2025-04-28] MEDS: ROXICODONE 5 MG PO (06:37)
[2025-04-28] MEDS: CARAFATE SUSPENSION 1 GM PO ×2 (06:37→12:02)
[2025-04-28] MEDS: NSS (PRESERVATIVE FREE) 10 ML IV (07:26)
[2025-04-28] MEDS: PROTONIX IV 40 MG IV (07:28)
[2025-04-28] MEDS: NEURONTIN 300 MG PO (07:29)
[2025-04-28] MEDS: FOLVITE 1 MG PO (07:29)
[2025-04-28] MEDS: COLACE 100 MG PO (07:29)
[2025-04-28] MEDS: COREG 3.125 MG PO (07:29)
[2025-04-28] MEDS: ZYRTEC 10 MG PO (07:30)
[2025-04-28] MEDS: VITAMIN B1 100 MG PO (07:30)
[2025-04-28] MEDS: HEPARIN 5000 UNITS SC (07:41)
[2025-04-28 07:55] VITALS: BP 107/66
[2025-04-28 08:02] LABS: Hematocrit 26.5 % (37.0-47.0); Hemoglobin 8.4 g/dL (12.0-16.0); Mean Corp Hgb Conc. 31.7 g/dL (33.0-37.0); Mean Corpuscular Volume 91.1 fL (81.0-99.0); Nucleated Red Blood Cells % 0 %; Platelet Count 99 10^3/uL (130-400); Red Cell Dist. Width 19.9 % (11.5-14.5)
[2025-04-28 08:18] LABS: ALT (SGPT) 27 U/L (0-35); AST (SGOT) 97 U/L (14-36); Albumin 3.4 g/dl (3.5-5.0); Alkaline Phosphatase 153 U/L (38-126); Blood Urea Nitrogen 3 mg/dl (7-17); Calcium 7.8 mg/dl (8.4-10.2); Carbon Dioxide 26 mmol/L (22-30); Chloride 105 mmol/L (98-107); Estimated Creatinine Clearance 103 ml/min; Glucose 124 mg/dl (70-99); Potassium 3.7 mmol/L (3.5-5.1); Sodium 136 mmol/L (135-145); Total Protein 7.7 g/dl (6.3-8.2); eGFR > 60.00
--- NOTE | 2025-04-28 11:03 | W.PN.HOSP.TC ---
Today's Communication/Plan
-
Pain control. Keep Narcan. Bowel regimen.
Assessment / Plan
Assessment / Plan
44-year-old woman with past medical history significant for:
alcohol abuse,
alcoholic hepatitis,
pancreatitis
was recently admitted for acute alcohol withdrawal status post phenobarbital taper who now presented to the Emergency Department with abdominal pain with intractable nausea vomiting. Patient started drinking again about 2 weeks ago. Labs
essentially similar to prior. CT scan shows likely hepatitis was mostly unchanged from prior. Clinical picture was consistent with acute alcoholic gastritis versus acute hepatitis. In similar fashion to prior discriminant function is negative.
She was not in acute withdrawal at this time.
1. Abdominal pain
- Due to gastritis and hepatomegaly and hepatic liver capsule stretch?
- patient continues to have pain and will need to f/u with pain specialist due to pain from organomegaly.
- Pain medication and medication which was adjusted over the weekend. Currently on OxyContin 20 mg Q12 with breakthrough oxycodone. DC IV dilaudid. Will need to follow-up with primary doctor for further medication adjustment and also with pain
management. This was discussed with patient and family at bedside.
2. Acute blood loss anemia complicated by
Alcoholic gastritis
Upper GI bleed
History of varices
- GI evaluated and patient started on octreotide drip and PPI
- Started on Rocephin for upper GI bleed prophylaxis-off abx now
- s/p EGD showing esophageal varices with recent stigmata of bleed, band placed. Also have changes of gastritis and some duodenal atrophy, has been biopsied.
- Hemoglobin 8.4 after 1 unit of blood transfusion for low hemoglobin of 6.9
- No reported luminal blood loss
- Diet advancement per GI
3. Alcohol use disorder
-Monitor for any alcohol withdrawal
-Finished short phenobarb protocol
-weaned off based on clinical course
-Last drink on 04/19
-Patient was strictly counseled in front of family for complete alcohol cessation. If patient continues to drink she understands prognosis is poor.
4. Alcoholic hepatitis - Likely cirrhosis
-Elevated LFT
-CT abdomen pelvis showing significant changes of hepatomegaly/splenomegaly/portal hypertension
-Avoid hepatotoxic medication
-Patient will require follow-up with hepatology postdischarge
-Liver enzyme is trending down.
5. Essential HTN
- maintain on coreg
6.Diffuse pruritus
Possible spider naevi
- Patient have focal red pinpoint lesion, questionable spider naevi
- Diffuse pruritus likely explained by direct bilirubinemia
7. Fever episode
- Patient had febrile episode
- COVID check negative
- Already on Rocephin for GI prophylaxis
- Blood culture ordered and collected - no growth
-Remains afebrile
8. Depression/anxiety
- Patient alcohol use disorder rooted in her untreated depression per patient/family
- Psychiatry consulted and recommended again imitation of anti-depressant yet
- [facility] evaluation requested by psychiatry
9. Abdominal wall hematoma
- small hematoma in abd wall, confirmed on abd US
10. Hyponatremia
Sodium stabilized.
Possibility of SIADH. Fluid obstruction.
11. Pancytopenia likely secondary to alcohol abuse
Transfuse for hemoglobin less than 7. Transfuse platelets for less than 20 with acute episode of bleeding.
Continue to trend labs as outpatient.
DVT PPX - scd
Full code
Discussed with family members at bedside
More than 30 minutes spent in discharge including
Final examination of the patient
Summarizing hospital stay
Instructions for continuing care to all relevant caregivers
Preparation of discharge records, prescriptions, and referral forms
Total time spent (in minutes): 55
Anticipated Discharge: Today
Subjective/Interval History
-
Date of Service: April 28, 2025
requiring pain medication
Objective Data
-
Labs:
Laboratory Results
04/28/25
06:18
WBC 2.3 L*
Hgb 8.4 L
Hct 26.5 L
Plt Count 99 L
Sodium 136
Potassium 3.7
Chloride 105
Carbon Dioxide 26
BUN 3 L
Creatinine 0.4 L
Glucose 124 H
Calcium 7.8 L
Total Bilirubin 7.1 H
AST 97 H
ALT 27
Alkaline Phosphatase 153 H
Vital Signs:
Vital Signs
Temp Pulse Resp BP Pulse Ox
99.0 F 86 18 107/66 96
04/28/25 07:55 04/28/25 07:55 04/28/25 07:55 04/28/25 07:55 04/28/25 07:55
I&O
04/27/25 04/28/25 04/29/25
06:59 06:59 06:59
Intake Total 1500 / 1500 3680 / 3680
Balance 1500 / 1500 3680 / 3680
--- NOTE | 2025-04-28 11:12 | W.DCSUMMARY ---
Discharge Summary
Discharge Data
Date of Admission: 04/19/25
Date of Discharge: 04/28/25
-
Pending Results: No
Hospital Course
44-year-old female past medical history of alcohol abuse, alcohol use disorder, alcoholic hepatitis, hypertension, alcoholic gastritis, history of GI bleeding, history of varices presented with intractable nausea vomiting. Patient was eval by
gastroenterology and psychiatry. Patient underwent endoscopy status post endoscopy showing esophagus varices with recent stigmata of bleeding, band placed. Also have changes of gastritis and duodenal atrophy. Patient was started on PPI. Patient
received blood transfusion and hemoglobin stabilized. Patient also with pancytopenia which was deemed secondary to alcohol use disorder. Patient also with severe right upper quadrant pain which was deemed secondary to liver capsule stretch from
severe hepatomegaly and cirrhosis of the alcohol abuse. Pain control and narcotics was started as patient remains severely symptomatic. Patient was counseled multiple times for complete alcohol cessation and to follow-up closely with outpatient
hepatology. Patient also to closely monitor blood work outpatient.
Discharge Plan
-
Patient Disposition: Home (Routine Discharge)
Discharge Diagnosis/Procedures: GI bleed, Variceal bleed, Significant hepatosplenomegaly and related abdominal pain
Condition: Fair
Diet: Low Fat
Activity: As tolerated
Driving Restrictions: As prior to admission
Blood Work: CBC/CMP/PT-INR twice/month-- obtain first set-- see labs slips on chart for next week
Referrals:
Ramiro Crum MD [Active, Anesthesiology]
Referral Note: Call for an establishing care for pain managment
Juliocesar Spence MD [Non-Admitting Privileges] - in one to two weeks
Referral Note: follow up with hepatology to eval for alcoholic liver disease
UNKNOWN - PT DOES,NOT KNOW [Family Provider, Internal Medicine] - in less than 1 week
Referral Note: Follow-up with primary care doctor for further pain management and pancytopenia.
Shelli Matthew DO [Active, Gastroenterology] - 06/02/25
Prescriptions:
New
sucralfate 100 mg/mL Suspension
1 g PO ACHS Qty: 1000 2RF
pantoprazole [Protonix] 40 mg tablet,delayed release (DR/EC)
40 mg PO BID Qty: 60 1RF
gabapentin 300 mg Capsule
600 mg PO HS 30 Days Qty: 60 0RF
gabapentin 300 mg Capsule
300 mg PO BID@0800,1600 30 Days Qty: 60 0RF
oxycodone [OxyContin] 20 mg Tablet,Oral Only,Ext.Rel.12 Hr
20 mg PO Q12H Qty: 10 0RF
naloxone [Narcan] 4 mg/actuation spray,non-aerosol
4 mg intranasal Q2M PRN (Reason: opioid overdose) Qty: 2 0RF
oxycodone 10 mg tablet
10 mg PO Q6H PRN (Reason: breakthrough pain) Qty: 15 0RF
Continued
cetirizine [Zyrtec] 10 mg Tablet
10 mg PO DAILY
tretinoin 0.025 % cream
1 applic TOPICAL DAILY
carvedilol 3.125 mg tablet
3.125 mg PO BID
Patient Comments:
Last fill December 2024 for 30-day supply
clonidine HCl 0.1 mg tablet
0.1 mg PO Q8HPRN PRN (Reason: alcohol withdrawal)
Discontinued
pantoprazole [Protonix] 40 mg Tablet,Delayed Release (Dr/Ec)
40 mg PO DAILY
Discharge Orders:
Discharge Patient (As Directed); Ordered 04/28/25
Ordered By: Bebo Pal
Discharge Date and Time
Print Language: SCOTTISH
--- NOTE | 2025-04-28 11:20 | CM ---
Patient has been cleared for discharge today, patient has declined treatment options through [facility], patient has been provided with a list of PCP physicians in area and 2 pain management physicians to follow up with as outpatient, patient's mother
and aunt are at bedside, pln home today no needs.
Plan; Home today, no needs.
== END 2025-04-28 14:47 | disposition home or self-care (01) | DRG 432 ==
LOC: 4 WEST ACU 19:47
PROVIDERS: Emergency Medicine; Hospitalist; Internal Medicine; Nurse Practitioner Adult Health; Nurse Practitioner Family; Physician Assistant; ADMITTING PHYSICIAN Internal Medicine; ATTENDING PHYSICIAN Hospitalist; CONSULT PHYSICIAN Internal Medicine Gastroenterology; CONSULT PHYSICIAN Psychiatry & Neurology Psychiatry; EMERGENCY PHYSICIAN Emergency Medicine
PROC: 0DB68ZX Excision of Stomach, Via Natural or Artificial Opening Endoscopic, Diagnostic (ICD-10-PCS; 2025-04-21)
PROC: 06L38CZ Occlusion of Esophageal Vein with Extraluminal Device, Via Natural or Artificial Opening Endoscopic (ICD-10-PCS; 2025-04-21)
PROC: 30233N1 Transfusion of Nonautologous Red Blood Cells into Peripheral Vein, Percutaneous Approach (ICD-10-PCS; 2025-04-22)
DX: K70.30 Alcoholic cirrhosis of liver without ascites (principal); I85.11 Secondary esophageal varices with bleeding; K29.21 Alcoholic gastritis with bleeding; K85.90 Acute pancreatitis without necrosis or infection, unspecified; F10.139 Alcohol abuse with withdrawal, unspecified; D62 Acute posthemorrhagic anemia; D61.818 Other pancytopenia; E22.2 Syndrome of inappropriate secretion of antidiuretic hormone; K76.6 Portal hypertension; I10 Essential (primary) hypertension; Z88.5 Allergy status to narcotic agent; F41.9 Anxiety disorder, unspecified; F32.A Depression, unspecified; Z79.899 Other long term (current) drug therapy; Y90.8 Blood alcohol level of 240 mg/100 ml or more; Z80.0 Family history of malignant neoplasm of digestive organs; Z11.52 Encounter for screening for COVID-19
CPT/HCPCS: 71046; 74177; 76705; 80048; 80053; 80076; 80306; 80307; 81003; 81015; 82077; 83605; 83690; 83735; 83930; 83935; 84300; 84484; 84703; 85014; 85018; 85025; 85027; 85610; 85730; 86850; 86900; 86901; 86920; 87040; 87502; 87811; 88305; 88342; 93005; 96361; 96374; 96375; 96376; 99285; P9016; Q9967

== ENCOUNTER 2025-08-02 02:19 | Inpatient (IN) | payer BC, SELFPAY ==
[2025-08-01 20:17] VITALS: BP 159/113
--- NOTE | 2025-08-01 21:33 | ED.GENMED ---
History of Present Illness
<Marycarmen Alegre MD, Resident - Last Filed: 08/02/25 16:27>
General
Chief Complaint: Abdominal Pain
Source: patient
Time Seen by Provider: 08/01/25 21:11
History of Present Illness
History of Present Illness:
44-year-old female with significant past medical history of alcohol use disorder, alcoholic hepatitis with fibrosis, GI bleeds, varices, hypertension presents to the ER with severe abdominal pain. Yesterday after being sober for many months she
drinks and 750 mL bottle of vodka due to an upsetting interaction with her sister. She endorses 6-7 bouts of brown emesis. She had another 6-7 bouts of brown emesis today. No diarrhea, hematochezia, melena. The abdominal pain is mainly in the
right upper quadrant and mid epigastric region. It is not radiating. It is 10 out of 10 in severity nothing seems to make it better. She endorses heart palpitations but denies any chest pain, shortness of breath. She is also emotionally upset
with herself or drinking so much.
Past History
<Marycarmen Alegre MD, Resident - Last Filed: 08/02/25 16:27>
Past History
ED Past Medical History: Psychiatric and Other (Alcohol use disorder, alcoholic hepatitis with fibrosis, GI bleeds, varices, hypertension, asthma)
ED Past Surgical History: Other ()
Social History
Tobacco: Vaping
Alcohol: Chronic alcoholic (Last drink last PM. States she no longer drinks daily)
Drug: None
Personal:
Living: with family
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
Family History
Family History: Negative Early CAD
Review of Systems
<Marycarmen Alegre MD, Resident - Last Filed: 08/02/25 16:27>
Review of Systems
Allergies reviewed?: Yes
Constitutional: Reports no symptoms
EENT: Reports no symptoms
Respiratory: Reports no symptoms
Cardiac: Reports palpitations
ABD/GI: Reports abdominal pain, nausea, vomiting and pain
: Reports no symptoms
Musculoskeletal: Reports no symptoms
Skin: Reports no symptoms
Phy Exam
<Marycarmen Alegre MD, Resident - Last Filed: 08/02/25 16:27>
Physical Exam
Physical Exam:
General: Writhing in pain [id number] in the bed, tearful
Head: Atraumatic
Cardiac: Regular S1, S2, no murmurs
Respiratory: Clear breath sounds bilaterally
Abdominal: Tenderness with palpation to right upper quadrant midepigastric region. Between writhing, abdomen is soft. Nondistended.
Extremities: No peripheral edema
Psych: tearful
Course
<Marycarmen Alegre MD, Resident - Last Filed: 08/02/25 16:27>
Orders/Labs/Results
Orders:
Orders
08/01/25 20:20
Test Result ONCE
08/01/25 21:30
Ondansetron Injectable [Zofran] 4 mg IV NOW STA
08/01/25 21:31
Pantoprazole [Protonix IV] 40 mg IV NOW STA
08/01/25 21:32
HYDROmorphone [Dilaudid] 0.5 mg IV NOW STA
Pantoprazole [Protonix IV] 80 mg IV NOW STA
08/01/25 21:34
Alcohol Urgent
Complete Blood Count/With Diff Urgent
Comprehensive Metabolic Panel Urgent
HCG, Serum Qualitative Screen Urgent
Comment: Notify provider if positive test present
Lipase Urgent
Magnesium Urgent
Comment: ADD ON
Phosphorus Urgent
Comment: ADD ON
08/01/25 21:49
Fentanyl, Urine Urgent
Urine Drug Abuse Screen Urgent
Date Specimen was Collected: 08/01/25
Time Specimen was Collected: 21:48
0.9% Sodium Chloride 1000 ml [Nss] 1,000 ml IV BOLUS
08/01/25 22:25
HYDROmorphone [Dilaudid] 0.5 mg IV NOW STA
08/02/25 00:02
CT Abd/pelvis W Iv Cont Urgent
Reason For Exam: Abdominal pain, severe vomiting
08/02/25 01:00
HYDROmorphone [Dilaudid] 0.5 mg .ROUTE .STK-MED ONE
08/02/25 01:02
HYDROmorphone [Dilaudid] 0.5 mg IV NOW STA
08/02/25 01:32
Add On- LAB Urgent
Tests Added?: Mg, PO4
08/02/25 01:45
Admit/Transfer Patient As Directed
Co-Sign Provider:
Level of Care: Inpatient admission
Assign to:: Telemetry
Physician / Group: Jayy
Diagnosis: Alcoholic Gastritis, Alcoholic Ketoacidosis
Reason for Telemetry: Arrhythmia
Date to Stop Telemetry: 08/05/25
Time to Stop Telemetry: 11:00
Reason for Hospitalization: Alcoholic Gastritis, Alcoholic Ketoacidosis
Expected length of stay greater than two midnights?: Yes
ELOS- Estimated Length of Stay in days: 3
I certify the patient meets the requirements for IP care: Yes
PRN Pain Medication Management As Directed
May give lesser potent ordered pain med per pt: Yes
preference::
Protocol:: Medication orders for pain may be administered in a
manner that supports deferring to patient preference
when the pt is:
- Requesting an ordered lesser potent pain medication.
Least to most potent pain medications are defined
as: acetaminophen < NSAID < tramadol < opioids
(morphine, oxycodone, hydromorphone).
- Requesting a lesser dose of the same medication IF
ORDERED.
- Requesting a less intrusive route of administration
if both routes are prescribed by the provider (PO <
IV).
08/02/25 01:46
Code Status As Directed
Resuscitation Status: Full Code
08/02/25 01:48
HYDROmorphone [Dilaudid] 0.5 mg IV NOW STA
08/02/25 01:51
B-Hydroxybutyrate Urgent
Lactic Acid Urgent
Protime/PTT Urgent
08/02/25 02:05
EKG [Electrocardiogram (*1)] Urgent
Reason for Study: QTc Monitoring
08/02/25 02:38
0.9% Sodium Chloride [Nss (Preservative Free)] See Protocol IV PRN PRN
FOLic ACID [Folvite] 1 mg 0.9% Sodium Chloride 50 ml [Nss] 50 ml IV DAILYPRN
HYDROmorphone [Dilaudid] 0.5 mg IV Q4HPRN PRN
Lactated Ringers [Lr] 1,000 ml IV 125 mls/hr
Lorazepam [Ativan] 1 mg IV Q1HPRN PRN
Lorazepam [Ativan] 1 mg PO Q2HPRN PRN
Lorazepam [Ativan] 2 mg IV Q1HPRN PRN
Ondansetron Injectable [Zofran] 4 mg IV Q6HPRN PRN
08/02/25 02:38
Case Management Consult Once
Case Management Consult: Other
Comment: Substance abuse counseling
Consult Notification Routine
Specialty to Notify: Gastroenterology
Date consulting provider notified: 08/02/25
Time consulting provider notified: 07:55
Notified:: Provider
DIETARY IP CONSULT Routine
Reason for Consult: Nutrition support, possible refeeding guidelines
GASTROINTESTINAL CONSULT Routine
Consulting Provider: Tomas Medrano
Was physician already notified: Yes
Reason for consult: Alcoholic Gastritis/ Cirrhosis
Activity As Directed
Activity Level: Ambulate
With Assistance
EKG with chest pain [ECG as needed] As Directed
ECG as needed for:: Chest Pain
I/O [Intake/ Output] As Directed
Frequency: Per unit guidelines
MSAS SCORE As Directed
MSAS Score 0-4: Repeat MSAS every 2 hours until 0-4 for three consecutive assessments, then every 4 hours x 48
hours.
MSAS Score 5-7: For MILD withdrawl symptoms. Repeat MSAS and RASS every 2 hours
MSAS Score 8-11: For MODERATE withdrawal symptoms. Repeat MSAS and RASS every 1 hour. Consider ICU or IMU
level of care.
MSAS Score > 11: For SEVERE withdrawal symptoms. Repeat MSAS and RASS every 1 hour. Notify provider, consider
ICU level of care.
MSAS Additional Instructions: If no improvement or no decrease in score from severe to moderate within 12
hours, consult psychiatry
MSAS Notify Provider: Notify provider if patient requires more than 10 mg of Lorazepam in eight hour period.
Pneumatic Compression Sleeves As Directed
Type: Knee high
Vital Signs As Directed
Frequency: Per unit guidelines
Weight As Directed
Frequency: Daily
Oxygen Therapy [O2 Therapy] [RESP] Routine
Titrate/Wean O2 to maintain O2 sat greater than (%): 94
DX Deep Vein Thrombosis Video Routine
08/02/25 Breakfast
NPO
Allow oral meds: Yes
Allow clear liquids: Sips of Clears
08/02/25 06:49
Basic Metabolic Panel IN AM
Complete Blood Count/No Diff IN AM
LFT [Uytje-Bjei-Fylcxic] IN AM
08/02/25 08:00
Buspirone [Buspar] 15 mg PO BID
Carvedilol [Coreg] 3.125 mg PO BID
Escitalopram Oxalate [Lexapro] 10 mg PO DAILY
FOLic ACID [Folvite] 1 mg PO DAILY
Gabapentin [Neurontin] 300 mg PO BID
Lamotrigine [Lamictal] 50 mg PO BID
Pantoprazole [Protonix IV] 40 mg IV BID
Thiamine Injection 200 mg IV Q12
08/02/25 13:11
Urinalysis Routine
Date Specimen was Collected: 08/02/25
Time Specimen was Collected: 13:10
08/02/25 22:00
Gabapentin [Neurontin] 600 mg PO HS
08/05/25 08:00
Thiamine HCl [Vitamin B1] 100 mg PO BID
08/05/25 11:00
DC Protocol for Telemetry ONCE
Abnormal Lab Results
08/01/25 08/01/25 08/02/25
21:34 21:49 01:51 EST
Hgb 11.6 L g/dL
(12.0-16.0)
MCV 78.1 L fL
(81.0-99.0)
MCH 24.5 L pg
(27.0-31.0)
MCHC 31.4 L g/dL
(33.0-37.0)
RDW 16.8 H %
(11.5-14.5)
Absolute Lymphs (auto) 4.8 H 10^3/uL
(1.2-3.4)
PT 17.9 H Sec
(11.4-14.6)
Potassium 3.4 L mmol/L
(3.5-5.1)
Carbon Dioxide 19 L mmol/L
(22-30)
Creatinine 0.4 L mg/dL
(0.6-1.0)
Lactic Acid 2.3 H mmol/L
(0.7-2.0)
Total Bilirubin 2.2 H mg/dl
(0.2-1.3)
AST 90 H U/L
(14-36)
Alkaline Phosphatase 184 H U/L
(38-126)
Total Protein 9.7 H g/dl
(6.3-8.2)
U Benzodiazepines Scrn Positive H
(Negative)
B-Hydroxybutyrate 2.10 H mmol/L
(0.02-0.27)
08/01/25 21:34
08/01/25 21:34
Vital Signs
Initial and Last Documented VS:
Initial Vital Signs
Temp Pulse Resp BP Pulse Ox
98.4 F 122 20 159/113 95
08/01/25 20:17 08/01/25 20:17 08/01/25 20:17 08/01/25 20:17 08/01/25 20:17
Last Documented Vital Signs
Temp Pulse Resp BP Pulse Ox
97.7 F 85 20 157/100 97
08/02/25 12:35 08/02/25 12:35 08/02/25 12:35 08/02/25 12:35 08/02/25 12:35
<Anna Epps, DO - Last Filed: 08/01/25 23:17>
Orders/Labs/Results
Orders:
Orders
08/01/25 20:20
Test Result ONCE
08/01/25 21:30
Ondansetron Injectable [Zofran] 4 mg IV NOW STA
08/01/25 21:31
Pantoprazole [Protonix IV] 40 mg IV NOW STA
08/01/25 21:32
HYDROmorphone [Dilaudid] 0.5 mg IV NOW STA
Pantoprazole [Protonix IV] 80 mg IV NOW STA
08/01/25 21:34
Alcohol Urgent
Complete Blood Count/With Diff Urgent
Comprehensive Metabolic Panel Urgent
HCG, Serum Qualitative Screen Urgent
Comment: Notify provider if positive test present
Lipase Urgent
Magnesium Urgent
Comment: ADD ON
Phosphorus Urgent
Comment: ADD ON
08/01/25 21:49
Fentanyl, Urine Urgent
Urine Drug Abuse Screen Urgent
Date Specimen was Collected: 08/01/25
Time Specimen was Collected: 21:48
0.9% Sodium Chloride 1000 ml [Nss] 1,000 ml IV BOLUS
08/01/25 22:25
HYDROmorphone [Dilaudid] 0.5 mg IV NOW STA
08/02/25 00:02
CT Abd/pelvis W Iv Cont Urgent
Reason For Exam: Abdominal pain, severe vomiting
08/02/25 01:00
HYDROmorphone [Dilaudid] 0.5 mg .ROUTE .STK-MED ONE
08/02/25 01:02
HYDROmorphone [Dilaudid] 0.5 mg IV NOW STA
08/02/25 01:32
Add On- LAB Urgent
Tests Added?: Mg, PO4
08/02/25 01:45
Admit/Transfer Patient As Directed
Co-Sign Provider:
Level of Care: Inpatient admission
Assign to:: Telemetry
Physician / Group: Jayy
Diagnosis: Alcoholic Gastritis, Alcoholic Ketoacidosis
Reason for Telemetry: Arrhythmia
Date to Stop Telemetry: 08/05/25
Time to Stop Telemetry: 11:00
Reason for Hospitalization: Alcoholic Gastritis, Alcoholic Ketoacidosis
Expected length of stay greater than two midnights?: Yes
ELOS- Estimated Length of Stay in days: 3
I certify the patient meets the requirements for IP care: Yes
PRN Pain Medication Management As Directed
May give lesser potent ordered pain med per pt: Yes
preference::
Protocol:: Medication orders for pain may be administered in a
manner that supports deferring to patient preference
when the pt is:
- Requesting an ordered lesser potent pain medication.
Least to most potent pain medications are defined
as: acetaminophen < NSAID < tramadol < opioids
(morphine, oxycodone, hydromorphone).
- Requesting a lesser dose of the same medication IF
ORDERED.
- Requesting a less intrusive route of administration
if both routes are prescribed by the provider (PO <
IV).
08/02/25 01:46
Code Status As Directed
Resuscitation Status: Full Code
08/02/25 01:48
HYDROmorphone [Dilaudid] 0.5 mg IV NOW STA
08/02/25 01:51
B-Hydroxybutyrate Urgent
Lactic Acid Urgent
Protime/PTT Urgent
08/02/25 02:05
EKG [Electrocardiogram (*1)] Urgent
Reason for Study: QTc Monitoring
08/02/25 02:38
0.9% Sodium Chloride [Nss (Preservative Free)] See Protocol IV PRN PRN
FOLic ACID [Folvite] 1 mg 0.9% Sodium Chloride 50 ml [Nss] 50 ml IV DAILYPRN
HYDROmorphone [Dilaudid] 0.5 mg IV Q4HPRN PRN
Lactated Ringers [Lr] 1,000 ml IV 125 mls/hr
Lorazepam [Ativan] 1 mg IV Q1HPRN PRN
Lorazepam [Ativan] 1 mg PO Q2HPRN PRN
Lorazepam [Ativan] 2 mg IV Q1HPRN PRN
Ondansetron Injectable [Zofran] 4 mg IV Q6HPRN PRN
08/02/25 02:38
Case Management Consult Once
Case Management Consult: Other
Comment: Substance abuse counseling
Consult Notification Routine
Specialty to Notify: Gastroenterology
Date consulting provider notified: 08/02/25
Time consulting provider notified: 07:55
Notified:: Provider
DIETARY IP CONSULT Routine
Reason for Consult: Nutrition support, possible refeeding guidelines
GASTROINTESTINAL CONSULT Routine
Consulting Provider: Tomas Medrano
Was physician already notified: Yes
Reason for consult: Alcoholic Gastritis/ Cirrhosis
Activity As Directed
Activity Level: Ambulate
With Assistance
EKG with chest pain [ECG as needed] As Directed
ECG as needed for:: Chest Pain
I/O [Intake/ Output] As Directed
Frequency: Per unit guidelines
MSAS SCORE As Directed
MSAS Score 0-4: Repeat MSAS every 2 hours until 0-4 for three consecutive assessments, then every 4 hours x 48
hours.
MSAS Score 5-7: For MILD withdrawl symptoms. Repeat MSAS and RASS every 2 hours
MSAS Score 8-11: For MODERATE withdrawal symptoms. Repeat MSAS and RASS every 1 hour. Consider ICU or IMU
level of care.
MSAS Score > 11: For SEVERE withdrawal symptoms. Repeat MSAS and RASS every 1 hour. Notify provider, consider
ICU level of care.
MSAS Additional Instructions: If no improvement or no decrease in score from severe to moderate within 12
hours, consult psychiatry
MSAS Notify Provider: Notify provider if patient requires more than 10 mg of Lorazepam in eight hour period.
Pneumatic Compression Sleeves As Directed
Type: Knee high
Vital Signs As Directed
Frequency: Per unit guidelines
Weight As Directed
Frequency: Daily
Oxygen Therapy [O2 Therapy] [RESP] Routine
Titrate/Wean O2 to maintain O2 sat greater than (%): 94
DX Deep Vein Thrombosis Video Routine
08/02/25 Breakfast
NPO
Allow oral meds: Yes
Allow clear liquids: Sips of Clears
08/02/25 06:49
Basic Metabolic Panel IN AM
Complete Blood Count/No Diff IN AM
LFT [Sdlse-Pxti-Lhfbsmi] IN AM
08/02/25 08:00
Buspirone [Buspar] 15 mg PO BID
Carvedilol [Coreg] 3.125 mg PO BID
Escitalopram Oxalate [Lexapro] 10 mg PO DAILY
FOLic ACID [Folvite] 1 mg PO DAILY
Gabapentin [Neurontin] 300 mg PO BID
Lamotrigine [Lamictal] 50 mg PO BID
Pantoprazole [Protonix IV] 40 mg IV BID
Thiamine Injection 200 mg IV Q12
08/02/25 13:11
Urinalysis Routine
Date Specimen was Collected: 08/02/25
Time Specimen was Collected: 13:10
08/02/25 22:00
Gabapentin [Neurontin] 600 mg PO HS
08/05/25 08:00
Thiamine HCl [Vitamin B1] 100 mg PO BID
08/05/25 11:00
DC Protocol for Telemetry ONCE
Abnormal Lab Results
08/01/25 08/01/25 08/02/25
21:34 21:49 01:51 EST
Hgb 11.6 L g/dL
(12.0-16.0)
MCV 78.1 L fL
(81.0-99.0)
MCH 24.5 L pg
(27.0-31.0)
MCHC 31.4 L g/dL
(33.0-37.0)
RDW 16.8 H %
(11.5-14.5)
Absolute Lymphs (auto) 4.8 H 10^3/uL
(1.2-3.4)
PT 17.9 H Sec
(11.4-14.6)
Potassium 3.4 L mmol/L
(3.5-5.1)
Carbon Dioxide 19 L mmol/L
(22-30)
Creatinine 0.4 L mg/dL
(0.6-1.0)
Lactic Acid 2.3 H mmol/L
(0.7-2.0)
Total Bilirubin 2.2 H mg/dl
(0.2-1.3)
AST 90 H U/L
(14-36)
Alkaline Phosphatase 184 H U/L
(38-126)
Total Protein 9.7 H g/dl
(6.3-8.2)
U Benzodiazepines Scrn Positive H
(Negative)
B-Hydroxybutyrate 2.10 H mmol/L
(0.02-0.27)
08/01/25 21:34
08/01/25 21:34
Vital Signs
Initial and Last Documented VS:
Initial Vital Signs
Temp Pulse Resp BP Pulse Ox
98.4 F 122 20 159/113 95
08/01/25 20:17 08/01/25 20:17 08/01/25 20:17 08/01/25 20:17 08/01/25 20:17
Last Documented Vital Signs
Temp Pulse Resp BP Pulse Ox
97.7 F 85 20 157/100 97
08/02/25 12:35 08/02/25 12:35 08/02/25 12:35 08/02/25 12:35 08/02/25 12:35
<Marycarmen Alegre MD, Resident - Last Filed: 08/02/25 16:27>
MDM/Problems Addressed
Differential Diagnosis Includes:
Alcoholic gastritis, upper GI bleed, viral gastritis, pancreatitis, cirrhosis,
MDM/Problems Addressed:
Suspect upper GI bleed. Vitals stable. Will give IV Protonix, Zofran, Dilaudid for pain. Will start fluids as unable to keep anything down in the last 48 hours. Hg much improved at 11.6 from prior 8.4 in 04/28/25. Lipase 270 which is reassuring that
this is not pancreatitis. Alcohol level noted to be 280. CT abdomen pelvis ordered as abdominal pain still significant despite total of 1 mg of Dilaudid.
CT abdomen pelvis overnight radiologist revealed diffuse fatty liver infiltration, mild hepatomegaly, mild splenomegaly. Recanalized umbilical vein. Slightly nodular contour of the liver suggestive of cirrhotic appearance. Mildly distended
gallbladder with possible strands sludge in the gallbladder. Pancreas is unremarkable. Mild wall thickening of the colon most pronounced in the descending colon throughout the rectum likely due to mild colitis. Trace free fluid, no free air,
normal appendix.
Given significant nausea, coffee-ground emesis with known esophageal varices, this is concerning for possibly detrimental GI bleed. Will admit for further evaluation.
Chronic conditions affecting care: Other (Alcohol use disorder, alcoholic hepatitis )
<Marycarmen Alegre MD, Resident - Last Filed: 08/02/25 16:27>
*Pulse Oximetry
SaO2: 95
Oxygen Mode of Delivery: Room air
Patient hypoxic: no
*Critical Care Note
Total Time (30-74mins, 75-104mins- exclusive of procedures): Not Applicable
Data Reviewed
Review of Other/Old Records Reveals: Labs (Hemoglobin noted to be 8.4 on 04/28/25. ) and Radiology Studies (Abdominal/pelvic CT 04/25/2025 revealed stable changes in the liver tightness and steatosis.)
Source: patient and records
ED Attending Note
<Marycarmen Alegre MD, Resident - Last Filed: 08/02/25 16:27>
-
Portions of this chart may have been created with voice recognition software.� Occasional wrong word or��sound alike� substitutions may have occurred due to the inherent limitations of voice recognition software.
<Anna Epps DO - Last Filed: 08/01/25 23:17>
ED Attending Note
Patient seen and examined by attending physician: Yes
I performed the substantive portion of visit, reviewed & personally made and approve the management plan that is documented in note by myself or GISELLE.: Yes
I performed a history and physical exam of patient and discussed management with resident, I reviewed resident's note and agree with documented findings and plan of care.: Yes
ED Attending Note:
44-year-old female with history of alcoholic liver disease presents to the ER after relapse of drinking yesterday. Patient complaining of severe upper abdominal pain with repetitive emesis. She states that she had been abstaining from alcohol use
since the summer but had an emotional encounter with her sister prompting her to drink a liter in the last 24 hours. She denies any blood in her stool. Emesis is described to be brown in color, no bright red. Vital signs reviewed, patient is
awake, alert, preferring to sit forward grabbing her stomach during interview, conjunctiva pink, sclera anicteric, mucous membranes moist, heart regular rate and rhythm, tachycardic without murmurs, lungs are clear to auscultation, abdomen is soft
with diffuse pain on palpation, extremities without edema. Patient had been given 0.5 mg Dilaudid prior to my evaluation. Will repeat dose. If patient fails to have improvement we will obtain CT scan for further evaluation and care. IV fluids
infusing.
Discharge Plan
Departure
Patient Disposition: Admit
Date of Disposition: 08/02/25
Time of Disposition: 01:41
Presentation/result/management discussed w/ accepting MD/DO: Hospitalist
Discharge Problem:
Acute alcoholic gastritis, Acute upper GI bleed, Colitis, Alcohol use disorder
Interventions
Interventions:
*Risk Screen - Suicide Last Done: 08/01/25 20:17
*General Assessment Last Done: 08/01/25 20:17
*Neglect/Abuse Screening Last Done: 08/01/25 20:17
*ED- Fall Risk Assessment Last Done: 08/02/25 00:00
*ED COVID-19 Vaccine History Last Done: 08/02/25 00:00
*ED Influenza Vaccine History Last Done: 08/02/25 00:00
*Nursing Disposition Last Done: 08/02/25 02:40
IY-Rjgkgu-Tiuihrvsya Assessment Last Done: 08/01/25 22:18
Discharge Date and Time
Discharge Date/Time: 08/02/25 02:41
[2025-08-01 21:43] LABS: Hematocrit 37.0 % (37.0-47.0); Hemoglobin 11.6 g/dL (12.0-16.0); Mean Corp Hgb Conc. 31.4 g/dL (33.0-37.0); Mean Corpuscular Volume 78.1 fL (81.0-99.0); Nucleated Red Blood Cells % 0 %; Platelet Count 244 10^3/uL (130-400); Red Cell Dist. Width 16.8 % (11.5-14.5)
[2025-08-01] MEDS: DILAUDID 0.5 MG IV ×2 (21:51→22:46)
[2025-08-01 21:52] LABS: HCG, Serum Qualitative Screen Negative
[2025-08-01] MEDS: ZOFRAN 4 MG IV (21:52)
[2025-08-01 21:57] LABS: ALT (SGPT) 34 U/L (0-35); AST (SGOT) 90 U/L (14-36); Albumin 4.8 g/dl (3.5-5.0); Alkaline Phosphatase 184 U/L (38-126); Blood Urea Nitrogen 11 mg/dl (7-17); Calcium 9.3 mg/dl (8.4-10.2); Carbon Dioxide 19 mmol/L (22-30); Chloride 102 mmol/L (98-107); Glucose 88 mg/dl (70-99); Lipase 270 U/L (23-300); Potassium 3.4 mmol/L (3.5-5.1); Sodium 138 mmol/L (135-145); Total Protein 9.7 g/dl (6.3-8.2); eGFR > 60.00
[2025-08-01] MEDS: PROTONIX IV 80 MG IV (22:14)
[2025-08-01] MEDS: NSS 1000 IV (22:15)
[2025-08-01 22:18] VITALS: BP 149/103
[2025-08-01 22:30] VITALS: BP 122/90
[2025-08-01 23:00] VITALS: BP 133/88
[2025-08-01 23:30] VITALS: BP 119/81
[2025-08-02] VITALS (10 sets, daily range): BP systolic 118–164; BP diastolic 77–105; BMI 19.4
[2025-08-02] MEDS: DILAUDID 0.5 MG IV ×6 (01:03→19:47)
--- NOTE | 2025-08-02 01:51 | HPS.HSE ---
Family Physician
-
Family Physician: Mariola Thomas, DO
Chief Complaint
-
Abd Pain
History of Present Illness
Patient is a 44y F with PMH significant for alcohol use disorder and alcohol cirrhosis who presents to ED complaining of abdominal pain x 2 days. Patient was sober for 100 days before she relapsed about 5-6 days ago. She states that she has
been drinking a bottle (750mL) daily of hard liquor since that time. Her last drink was this evening prior to arrival. Patient notes that she developed upper abdominal pain about 2 days ago. She has had multiple episodes of N/V of 'brown'
appearing liquid. No hematemesis, black / bloody stools. No diarrhea. No fevers / chills.
Patient presented to the ED this evening with continued abdominal pain.
Prior h/o similar admission in March of this year. Patient notes that she had been sober since that discharge until this recent relapse.
Medical History
Past Medical History
Past Medical History: Reports Other
Additional Past Medical History:
Alcohol Use Disorder
Alcoholic Cirrhosis with Varices
Anxiety / Depression
Past Surgical History: Reports Other
Additional Past Surgical History:
x 1
Social History
Tobacco: Vaping (daily)
Alcohol: Chronic Alcoholic (Sober x 100 days. Relapse 5-6 days prior to this admission. Last drink the evening of admission.)
Drug: None
Personal:
Living: With Family
Family History
Family History: Not pertinent
Allergies / Home Medications
Allergies reflects when Allergies were last updated in [facility].
Home Medications with original date entered in [facility]
Allergy/Medication List:
Allergies
Allergy/AdvReac Type Severity Reaction Status Date / Time
lavender (Lavandula Allergy Hives Verified 04/19/25 15:26
angustifolia)
morphine Allergy Hives Verified 07/20/25 15:26
Home Medications
pantoprazole 40 mg tablet,delayed release (Protonix) 40 mg PO BID #60 tabs 04/24/25
buspirone 15 mg tablet 15 mg PO BID 08/02/25
carvedilol 3.125 mg tablet 3.125 mg PO BID 08/02/25
escitalopram oxalate 10 mg tablet 10 mg PO DAILY 08/02/25
gabapentin 300 mg capsule 300 mg PO BID 08/02/25
gabapentin 600 mg tablet 600 mg PO HS 08/02/25
lamotrigine 25 mg tablet 50 mg PO BID 08/02/25
oxycodone 10 mg tablet 10 mg PO Q6HPRN PRN Pain 08/02/25
Review of Systems
-
History Source: Patient
A 12 point ROS was completed and negative except as noted: Yes
Constitutional: Reports Fatigue; Denies Fever or Chills
Respiratory: Denies Cough or Trouble Breathing
Cardiac: Denies Chest Pain or Palpitations
Abdomen/GI: Reports Abdominal Pain, Nausea, Vomiting and Anorexia; Denies Diarrhea, Constipated, Bloody Stools or Black Stools
: Denies Dysuria or Frequency
Musculoskeletal: Denies Joint Pain or Edema
Neurological: Denies Dizzy or Headache
Psych: Reports Depression and Anxiety
Physical Exam
Vital Signs
Vital Signs
Temp Pulse Resp BP Pulse Ox
98.4 F 122 20 135/93 93
08/01/25 20:17 08/01/25 20:17 08/01/25 20:17 08/02/25 00:30 08/02/25 00:31
Physical Exam
General: Other (Ill-appearing 44y F in moderate distress due to abdominal pain / nausea.)
HEENT: Other (Dry MM. Neck supple.)
Respiratory: Clear; No Wheezes, Rales or Rhonchi
Cardiac: S1/S2 and Tachycardia; No Murmur
GI: Soft, Non Distended, Normal Bowel Sounds and Other (Pos tenderness in epigastric region / upper abdomen. Pos bowel sounds.)
Musculoskeletal: No Clubbing, No Cyanosis and No Edema
Neuro: AO x 3 and Nonfocal/grossly intact
Laboratory Results
-
08/01/25 21:34
08/01/25:34
Laboratory Results
Total Bilirubin 2.2 mg/dl (0.2-1.3) H 08/01/25:34
AST 90 U/L (14-36) H 08/01/25 21:34
ALT 34 U/L (0-35) 08/01/25 21:34
Alkaline Phosphatase 184 U/L (38-126) H 08/01/25:34
Lipase 270 U/L (23-300) 08/01/25 21:34
Impression/Plan
-
A/P: Patient is a 44y F with PMH significant for alcoholic cirrhosis who presents to ED complaining of abdominal pain with N/V x 2 days after EtOH relapse x 5-6 days.
Alcohol Use Disorder with Acute Relapse
Alcoholic Gastritis
Alcoholic Cirrhosis with History of Varices
Anion Gap Metabolic Acidosis - Likely Alcoholic Ketoacidosis
- Admit for further evaluation and treatment.
- Supportive care / pain control / etc.
- IVF support. IV PPI.
- No evidence of active GI bleeding at present.
- Follow for clinical improvement and improvement in labs / lytes.
- GI evaluation for additional recommendations / follow-up.
- Monitor for symptoms of alcohol withdrawal and treat with BZDs as needed.
- Thiamine, folate, MVI replacement, etc.
- Additional labs added to calculate MELD.
- CT scan in the ED with no significant acute findings. Evidence for portal hypertension with general colopathy, splenomegaly, etc.
- Long period of recent sobriety and labs overall appear somewhat improved compared to prior admission in March.
Chronic Pain Syndrome
- Unclear source of chronic pain. Patient notes that she is on gabapentin and oxycodone PRN for pain control as she cannot take Tylenol / NSAIDs.
- Continue usual home gabapentin.
- Dilaudid for acute pain - wean to usual home regimen.
Anxiety / Depression
- Continue current psychotropic med regimen.
DVT Prophylaxis: SCDs
Code Status: Full
[2025-08-02 02:09] LABS: Magnesium 1.8 mg/dl (1.6-2.3)
[2025-08-02 02:19] LABS: INR 1.46; PT 17.9 Sec (11.4-14.6)
[2025-08-02 02:20] LABS: APTT 33.1 Sec (23.4-35.0)
[2025-08-02] MEDS: LR 1000 IV ×2 (03:01→16:16)
--- NOTE | 2025-08-02 05:12 | PTCARENOTE ---
08/02 at 0234 Pt received via stretcher with spouse at bedside; Telemetry order> NSR-ST on monitor, afebrile, HR 90s-110s, RR 20, BP 152/91 pox 96% room air. C/O 10 LUQ abd pain. In ED, Pt administered 1mg IV Dilaudid [id number]. This RN reached
out to house [employer]ICIAN [employer]IC- no new orders.
MSAS score 3-4> Pt w/ mild, visible tremor and tachycardic. Pt NPO. IVF administered per MD order. PMH and medications reviewed by this RN and patient. Call horne within reach.
--- NOTE | 2025-08-02 07:53 | W.PN.HOSP.TC ---
Addendum entered and electronically signed by Dinh Escalante MD 08/02/25 13:11:
I saw and evaluated the patient. I reviewed the resident�s note and agree with findings and plan as documented in the resident�s note.
1. Alcohol use disorder, alcohol withdrawal -reported last drink yesterday before coming to hospital. Drinks vodka. MSAS score elevated in range of 3-5. Hypertensive/afebrile. Started on MSAS/Ativan protocol. If any signs of worsening alcohol
withdrawal will require to be started on phenobarb protocol
2. Upper GI bleed, history of variceal bleed-reported coffee-ground emesis hemoglobin drifted down to 9.9, possible component of dilution as well. GI evaluated and low risk of variceal bleed. Maintain on IV PPI. Clear to be initiated on clear
liquid diet. Monitor hemoglobin
3. Liver cirrhosis -CT abdomen pelvis images reviewed and have echogenicity on liver. LFTs marginally elevated. No signs of coagulopathy. GI evaluated and questioning possible component of alcoholic hepatitis as well. No clear indication for
steroids
4. Left-sided pain -presumed alcoholic gastritis related. CT abdomen pelvis questioning mild descending colitis although no supportive sign of diarrhea/fever/leukocytosis. Monitor off antibiotics.
5. Elevated total bilirubin -mixed Verity with direct component of 1. Likely due to liver dysfunction from alcohol use
6. Chronic pain and narcotic dependence -patient with history of chronic abdominal pain and has been on oxycodone 10 mg every 6 as needed. PDMP reviewed. Continue home regimen with IV Dilaudid as needed ordered for left-sided pain.
Total time spent : 53 mins
Original Note:
Today's Communication/Plan
-
Patient was not exhibiting signs of alcohol withdrawal this morning.
Appears to be in severe pain, clutching abdomen and bending forward. Pain localized to left upper quadrant.
Mild colitis on CT. Patient denies diarrhea. No leukocytosis. Holding off on starting antibiotics.
No signs of active bleed. Pending GI recommendations.
Assessment / Plan
Assessment / Plan
Impression
Patient is a 44y F with PMH notable for alcohol use disorder, alcoholic hepatitis with fibrosis, GI bleeds, variceal bleed, hypertension, who presented with abdominal pain with N/V x 2 days after EtOH relapse x 5-6 days.
HPI
Patient was sober for 100 days before she relapsed about 5-6 days ago. She states that she has been drinking a bottle (750mL) daily of hard liquor upsetting interaction with her sister. Her last drink was a few hours prior to arrival in ED.
Patient notes that she developed right upper abdominal pain and midepigastric pain 2 days ago. It is not radiating. It is 10 out of 10 in severity nothing seems to make it better. She endorses 6-7 bouts of brown emesis yesterday and today. Prior
h/o similar admission in March of this year. Patient notes that she had been sober since that discharge until this recent relapse. No diarrhea, hematochezia, melena. No fevers / chills. She endorses heart palpitations but denies any chest pain,
shortness of breath. She is also emotionally upset with herself or drinking so much.
ED
Suspect upper GI bleed. Vitals stable. Will give IV Protonix, Zofran, Dilaudid for pain. Will start fluids as unable to keep anything down in the last 48 hours. Hg much improved at 11.6 from prior 8.4 in 04/28/25. Lipase 270 which is reassuring that
this is not pancreatitis. Alcohol level noted to be 280. CT abdomen pelvis ordered as abdominal pain still significant despite total of 1 mg of Dilaudid.
CT abdomen pelvis: diffuse fatty liver infiltration, mild hepatomegaly, mild splenomegaly. Recanalized umbilical vein. Slightly nodular contour of the liver suggestive of cirrhotic appearance. Mildly distended gallbladder with possible strands
sludge in the gallbladder. Pancreas is unremarkable. Mild wall thickening of the colon most pronounced in the descending colon throughout the rectum likely due to mild colitis. Trace free fluid, no free air, normal appendix.
Plan
Left upper quadrant abdominal pain
Alcoholic Gastritis, history of variceal bleed
Mild colitis on CT
- Patient denies diarrhea. No leukocytosis. Holding off on starting antibiotics.
Long period of recent sobriety and labs overall appear somewhat improved compared to prior admission in March.
� Lipase 270 normal. LFTs elevated. PT elevated, INR and PTT normal
� Microcytic anemia - Hemoglobin 11.6, MCV 78. Likely blood loss anemia
- No sign of active GI bleeding at present.
- CT abdomen pelvis with IV contrast: No significant acute findings 1. Mild bowel wall thickening involving the descending and sigmoid colon, suggestive of mild colitis. 2. Severe diffuse fatty infiltration of the liver. 3. Nodular contour of the
liver, suggestive of cirrhosis. Recanalization of the umbilical veins and mild splenomegaly, suggestive of portal hypertension.
Interventions:
- IVF support. IV PPI.
- Pain control with oxycodone 5/10 mg p.o. every 4 hours as needed for moderate/severe pain and Dilaudid 0.5 mg IV every 4 hours as needed for breakthrough pain. Avoid Tylenol due to cirrhosis
� N.p.o.
� Zofran 4 mg IV every 6 hours as needed
Alcoholic Cirrhosis
- MELD 14 points. 6% estimated 3-month mortality
- GI evaluation / follow-up.
Alcohol Use Disorder with Acute Relapse
Urine toxicology screen positive for benzodiazepines
- MSAS protocol. Monitor for symptoms of alcohol withdrawal and treat with BZDs as needed. MSAS score 3-4 for tremor and tachycardia. No tremor on exam today
- Thiamine, folate, MVI replacement, etc.
Hypertension
� Continue home carvedilol 3.125 mg p.o. twice daily
� Elevated BPs in 150s could be a symptom of alcohol withdrawal. Fluctuates between 110s and 150s
Electrolyte abnormalities
Hypokalemia
Anion Gap Metabolic Acidosis - Likely Alcoholic Ketoacidosis
� Magnesium 1.8 normal
� Replete as needed. KCl IV 40 mEq 08/02/2025
Chronic Pain Syndrome
- Unclear source of chronic pain. Patient notes that she is on gabapentin and oxycodone PRN for pain control as she cannot take Tylenol / NSAIDs.
- Continue home gabapentin 600 mg p.o. nightly and 100 mg p.o. twice daily
- Dilaudid for acute pain - wean to usual home regimen: Oxycodone 10 mg p.o. every 6 hours as needed
History of seizures
� Continue home lamotrigine 50 mg p.o. twice daily
Anxiety / Depression
- Continue home escitalopram (Lexapro) 10 mg p.o. daily
DVT Prophylaxis: SCDs
Code Status: Full
Anticipated Discharge: 24 - 48 hours
Subjective/Interval History
-
Date of Service: August 02, 2025
No acute events overnight. Patient was sitting and bent over, clutching her abdomen pain. She states with pain is in her left upper quadrant and has been there for the last 2 days (not in the right upper quadrant)
Objective Data
-
Labs:
Laboratory Results
08/01/25 08/02/25 08/02/25
21:34 01:51 EST 06:49
WBC 10.6 Pending
Hgb 11.6 L Pending
Hct 37.0 Pending
Plt Count 244 Pending
PT 17.9 H
INR 1.46
APTT 33.1
Sodium 138 Pending
Potassium 3.4 L Pending
Chloride 102 Pending
Carbon Dioxide 19 L Pending
BUN 11 Pending
Creatinine 0.4 L Pending
Glucose 88 Pending
Calcium 9.3 Pending
Total Bilirubin 2.2 H Pending
AST 90 H Pending
ALT 34 Pending
Alkaline Phosphatase 184 H Pending
Vital Signs:
Vital Signs
Temp Pulse Resp BP Pulse Ox
97.6 F 97 20 152/91 96
08/02/25 02:42 08/02/25 02:42 08/02/25 02:42 08/02/25 02:42 08/02/25 05:11
Review of Systems
-
History Source: Patient
All other systems: Reviewed and negative
Physical Exam
-
General: Well Developed, Well Nourished, Pain and Conversant
HEENT: Normocephalic, Atraumatic, Anicteric, Nose Appears Normal and Ears Appear Normal
Respiratory: Clear to Auscultation
Cardiac: Regular Rhythm and S1/S2
GI: Soft, Nondistended, Normal Bowel Sounds, Tender (Most tender in left upper quadrant, but also tender in other quadrants to palpation) and Other (Guarding, tensed abdominal muscles during palpation)
Musculoskeletal: No Clubbing and No Cyanosis
Skin: Warm and Dry
Neuro: Awake, Alert, No Motor Deficits, Nonfocal/Grossly Intact and Central Nerve's Intact
Psych: Anxious (Due to pain)
[2025-08-02] MEDS: PROTONIX IV 40 MG IV ×2 (08:12→19:47)
[2025-08-02 08:13] LABS: ALT (SGPT) 30 U/L (0-35); AST (SGOT) 71 U/L (14-36); Albumin 4.3 g/dl (3.5-5.0); Alkaline Phosphatase 148 U/L (38-126); Blood Urea Nitrogen 10 mg/dl (7-17); Calcium 8.3 mg/dl (8.4-10.2); Carbon Dioxide 20 mmol/L (22-30); Chloride 103 mmol/L (98-107); Estimated Creatinine Clearance 101 ml/min; Glucose 74 mg/dl (70-99); Potassium 3.7 mmol/L (3.5-5.1); Sodium 140 mmol/L (135-145); Total Protein 8.3 g/dl (6.3-8.2); eGFR > 60.00
[2025-08-02] MEDS: THIAMINE INJECTION 200 MG IV ×2 (08:13→19:48)
[2025-08-02] MEDS: NEURONTIN 300 MG PO (08:14)
[2025-08-02] MEDS: LAMICTAL 50 MG PO ×2 (08:14→19:49)
[2025-08-02] MEDS: COREG 3.125 MG PO ×2 (08:14→19:46)
[2025-08-02] MEDS: BUSPAR 15 MG PO ×2 (08:14→19:47)
[2025-08-02] MEDS: FOLVITE 1 MG PO (08:14)
[2025-08-02] MEDS: LEXAPRO 10 MG PO (08:14)
[2025-08-02] MEDS: FLUSH (NSS) 2 FLUSH IV ×3 (08:17→14:56)
[2025-08-02] MEDS: ROXICODONE 10 MG PO ×2 (08:20→22:25)
[2025-08-02] MEDS: ZOFRAN 4 MG IV (08:21)
[2025-08-02 08:25] LABS: Hematocrit 30.3 % (37.0-47.0); Hemoglobin 9.9 g/dL (12.0-16.0); Magnesium 1.7 mg/dl (1.6-2.3); Mean Corp Hgb Conc. 32.7 g/dL (33.0-37.0); Mean Corpuscular Volume 77.9 fL (81.0-99.0); Platelet Count 162 10^3/uL (130-400); Red Cell Dist. Width 16.7 % (11.5-14.5)
[2025-08-02] MEDS: KCL 270 MEQ IV (08:52)
--- NOTE | 2025-08-02 11:32 | CM ---
I.A: Completed By GATITO Wilkinson.
Patient lives with her in a 2 Story House with 2 steps to enter, No DME, No VN/PT, and has transportation home when ready.
PCP: Dr. Mariola Thomas
Pharmacy: [facility]
Consult went in for substance abuse resources, talked to patient, she stated she utilizes a psychiatrist as well as a counselor, and prefer to use them, no others, as they both know her well. PLAN: Anticipate Home No Needs.
--- NOTE | 2025-08-02 12:36 | CON.GI ---
Consultation
-
Date/Time Consultation Performed: 08/02/25
Performing Provider: Heriberto Medrano MD
Reason for Consultation: abdominal pain
Medical History
Chief Complaint / HPI
Chief Complaint: abdominal pain
History of Present Illness:
The patient is a 44-year-old female past medical history as noted who presents with abdominal pain. She has a history of alcohol use and cirrhosis, decompensated with varices with banding over the summer, but had been doing well almost 100 days
sober. Unfortunately start drinking again, and for the past few days has been having left upper quadrant pain similar to her pain in the past. She did have an episode of vomiting though without coffee grounds or bright red blood. She denies any
diarrhea or melena. She denies any fevers or chills. She did follow-up with Dr. Matthew in June where other labs were negative for other underlying liver disease, was up-to-date with HCC surveillance. Almost all of her symptoms had resolved
after her hospitalization when she was sober
Past Medical History
Past Medical History: Other (Cirrhosis, secondary to alcohol, decompensated with esophageal varices, pancreatitis, anxiety, depression, hypertension)
Social History
Tobacco: Vaping
Alcohol: Daily
Family History
Family History: Reviewed & Not Pertinent
Allergies / Home Medications
Allergy/AdvReac Type Severity Reaction Status Date / Time
lavender (Lavandula Allergy Hives Verified 04/19/25 15:26
angustifolia)
morphine Allergy Hives Verified 04/19/25 15:26
�Medication �Instructions �Recorded
pantoprazole 40 mg tablet,delayed 40 mg PO BID #60 tabs 04/24/25
release (Protonix)
buspirone 15 mg tablet 15 mg PO BID 08/02/25
carvedilol 3.125 mg tablet 3.125 mg PO BID 08/02/25
escitalopram oxalate 10 mg tablet 10 mg PO DAILY 08/02/25
gabapentin 300 mg capsule 300 mg PO BID 08/02/25
gabapentin 600 mg tablet 600 mg PO HS 08/02/25
lamotrigine 25 mg tablet 50 mg PO BID 08/02/25
oxycodone 10 mg tablet 10 mg PO Q6HPRN PRN Pain 08/02/25
Review of Systems
-
All other systems: A 12 pt ROS was Negative except as stated above in HPI
Vital Signs
Temp Pulse Resp BP Pulse Ox
97.7 F 85 20 157/100 97
08/02/25 12:35 08/02/25 12:35 08/02/25 12:35 08/02/25 12:35 08/02/25 12:35
Physical Exam
Exam
General: NAD
HEENT: MMM, anicteric, no lymphadenopathy
Heart: Regular, no murmurs
Lungs: CTA bilaterally
Abdomen: normal bowel sounds, soft, mild left upper quadrant tenderness, no rebound or guarding, no masses, bruits or ascites
Extremeties: no edema
Skin: no rashes
Results
WBC 6.3 10^3/uL (4.8-10.8) 08/02/25 06:49
Hgb 9.9 g/dL (12.0-16.0) L 08/02/25 06:49
Hct 30.3 % (37.0-47.0) L 08/02/25 06:49
MCV 77.9 fL (81.0-99.0) L 08/02/25 06:49
Plt Count 162 10^3/uL (130-400) D 08/02/25 06:49
Absolute Neuts (auto) 4.9 10^3/uL (1.4-6.5) 08/01/25 21:34
PT 17.9 Sec (11.4-14.6) H 08/02/25 01:51 EST
INR 1.46 08/02/25 01:51 EST
APTT 33.1 Sec (23.4-35.0) 08/02/25 01:51 EST
Sodium 140 mmol/L (135-145) 08/02/25 06:49
Potassium 3.7 mmol/L (3.5-5.1) 08/02/25 06:49
Chloride 103 mmol/L (98-107) 08/02/25 06:49
Carbon Dioxide 20 mmol/L (22-30) L 08/02/25 06:49
BUN 10 mg/dl (7-17) 08/02/25 06:49
Creatinine 0.4 mg/dL (0.6-1.0) L 08/02/25 06:49
Calcium 8.3 mg/dl (8.4-10.2) L 08/02/25 06:49
Total Bilirubin 2.3 mg/dl (0.2-1.3) H 08/02/25 06:49
AST 71 U/L (14-36) H 08/02/25 06:49
ALT 30 U/L (0-35) 08/02/25 06:49
Alkaline Phosphatase 148 U/L (38-126) H 08/02/25 06:49
Lipase 270 U/L (23-300) 08/01/25 21:34
Diagnostic Image Results:
CT:
IMPRESSION:
1. Mild bowel wall thickening involving the descending and sigmoid colon, suggestive of mild colitis.
2. Severe diffuse fatty infiltration of the liver.
3. Nodular contour of the liver, suggestive of cirrhosis. Recanalization of the umbilical veins and mild splenomegaly, suggestive of portal hypertension.
Prior GI Procedures:
EGD:
04/24:
Impression:
- Grade II esophageal varices with stigmata of recent bleeding.
Banded x2.
- Alcoholic gastritis, characterized by friability and erythema.
Biopsied.
- Duodenal mucosal atrophy. Biopsied.
Colonoscopy:
Assessment / Plan
-
1. Abdominal pain: In the setting of acute alcohol, CT scan and labs negative for pancreatitis, LFTs only minimally elevated, likely secondary to alcoholic gastritis, similar to her symptoms in the past when she was actively drinking. Again at
this point no signs of any active bleeding. Would continue PPI, clear liquids for today, antiemetics and will add Carafate suspension for now.
2. Cirrhosis: Secondary to alcohol, decompensated with varices, status post banding over the summer. Her LFTs are mildly elevated, no signs of superimposed now. Severe acute alcoholic hepatitis. Will continue to trend LFTs, continue Coreg, PPI,
alcohol withdrawal protocol.
-
-
Thank you for consultation and allowing me to participate in the patient's care. Please call the manager business continuity GI physician during the after hours with any questions or concerns.
[2025-08-02 13:56] LABS: Urine Character Clear (Clear)
[2025-08-02 14:24] LABS: Urine Squamous Cell >30 /LPF (Few)
[2025-08-02] MEDS: CARAFATE SUSPENSION 1 GM PO ×2 (16:20→22:23)
[2025-08-02] MEDS: NEURONTIN PO (20:15)
[2025-08-02] MEDS: NEURONTIN 600 MG PO (20:15)
[2025-08-02] MEDS: LR IV (20:20)
[2025-08-03] MEDS: LR 1000 IV ×2 (00:28→08:57)
[2025-08-03] MEDS: DILAUDID 0.5 MG IV ×3 (00:29→10:53)
[2025-08-03] MEDS: ROXICODONE 10 MG PO ×2 (03:00→09:12)
[2025-08-03 03:27] VITALS: BP 158/99
[2025-08-03 05:38] VITALS: BMI 20.1
--- NOTE | 2025-08-03 05:51 | W.PN.GI.CBS2 ---
Today's Communication / Plan
-
Please see assessment and plan for details.
Assessment / Plan
-
1. Abdominal pain: In the setting of acute alcohol, CT scan and labs negative for pancreatitis, LFTs only minimally elevated, likely secondary to alcoholic gastritis, similar to her symptoms in the past when she was actively drinking. Again at
this point no signs of any active bleeding. There is no ascites on CT scan. Would continue PPI, clear liquids for today, antiemetics and Carafate. We discussed if no improvement may need to consider repeat endoscopy though we will hold for now.
2. Cirrhosis: Secondary to alcohol, decompensated with varices, status post banding over the summer. Her LFTs are mildly elevated, no signs of superimposeds evere acute alcoholic hepatitis. Will continue to trend LFTs, continue Coreg, PPI,
alcohol withdrawal protocol.
Subjective
Subjective
Date of Service: August 03, 2025
Patient still with left upper quadrant discomfort, no vomiting, fever or chills, no melena or hematochezia. She had a bowel movement yesterday, no change in symptoms after bowel movement.
Objective
Data Reviewed
Laboratory Data:
Laboratory Results
PT 17.9 Sec (11.4-14.6) H 08/02/25 01:51 EST
INR 1.46 08/02/25 01:51 EST
APTT 33.1 Sec (23.4-35.0) 08/02/25 01:51 EST
Phosphorus 3.8 mg/dl (2.5-4.5) 08/01/25 21:34
Magnesium 1.7 mg/dl (1.6-2.3) 08/02/25 06:49
Total Bilirubin 2.3 mg/dl (0.2-1.3) H 08/02/25 06:49
AST 71 U/L (14-36) H 08/02/25 06:49
ALT 30 U/L (0-35) 08/02/25 06:49
Alkaline Phosphatase 148 U/L (38-126) H 08/02/25 06:49
Lipase 270 U/L (23-300) 08/01/25 21:34
Vital Signs and I&O:
Vital Signs
Temp Pulse Resp BP Pulse Ox
98.3 F 100 18 158/99 95
08/03/25 03:27 08/03/25 03:27 08/03/25 03:27 08/03/25 03:27 08/03/25 03:27
I&O
08/01/25 08/02/25 08/03/25
06:59 05:59 06:59
Intake Total 480 / 480
Balance 480 / 480
Physical Exam
Physical Exam
General: NAD
Abdomen: normal bowel sounds, soft, mild left upper quadrant tenderness, no masses or bruits, no ascites
[2025-08-03 07:04] VITALS: BP 140/91
[2025-08-03 08:44] LABS: Hematocrit 29.3 % (37.0-47.0); Hemoglobin 9.2 g/dL (12.0-16.0); INR 1.51; Mean Corp Hgb Conc. 31.4 g/dL (33.0-37.0); Mean Corpuscular Volume 81.6 fL (81.0-99.0); Nucleated Red Blood Cells % 0 %; PT 18.4 Sec (11.4-14.6); Red Cell Dist. Width 16.4 % (11.5-14.5)
[2025-08-03] MEDS: CARAFATE SUSPENSION 1 GM PO ×2 (08:53→12:34)
[2025-08-03] MEDS: LAMICTAL 50 MG PO (08:54)
[2025-08-03] MEDS: LEXAPRO 10 MG PO (08:54)
[2025-08-03] MEDS: NEURONTIN 300 MG PO (08:54)
[2025-08-03] MEDS: COREG 3.125 MG PO (08:54)
[2025-08-03] MEDS: FOLVITE 1 MG PO (08:54)
[2025-08-03] MEDS: BUSPAR 15 MG PO (08:55)
[2025-08-03] MEDS: PROTONIX IV 40 MG IV (08:56)
[2025-08-03] MEDS: NSS (PRESERVATIVE FREE) 10 ML IV (08:58)
[2025-08-03] MEDS: THIAMINE INJECTION 200 MG IV (08:58)
[2025-08-03 09:16] LABS: ALT (SGPT) 25 U/L (0-35); AST (SGOT) 56 U/L (14-36); Albumin 3.9 g/dl (3.5-5.0); Alkaline Phosphatase 132 U/L (38-126); Blood Urea Nitrogen 8 mg/dl (7-17); Calcium 8.7 mg/dl (8.4-10.2); Carbon Dioxide 25 mmol/L (22-30); Chloride 100 mmol/L (98-107); Estimated Creatinine Clearance 104 ml/min; Glucose 86 mg/dl (70-99); Magnesium 1.4 mg/dl (1.6-2.3); Potassium 3.3 mmol/L (3.5-5.1); Sodium 136 mmol/L (135-145); Total Protein 7.5 g/dl (6.3-8.2); eGFR > 60.00
[2025-08-03 09:30] LABS: Platelet Count 92 10^3/uL (130-400)
--- NOTE | 2025-08-03 09:51 | W.PN.HOSP.TC ---
Addendum entered and electronically signed by Jennifer Castro MD 08/03/25 17:32:
I saw and evaluated the patient independently. I reviewed and discussed the resident�s note and agree with findings and plan as documented by Dr. Starks.
GENERAL: well developed, well nourished, female in no apparent distress--sitting cross legged on the bed
HEENT: NC/AT
HEART: regular rate and rhythm, +S1, +S2
LUNGS : clear to auscultation bilaterally
ABDOM: soft, minimally diffusely tender, nondistended, + bowel sounds
EXT: no cyanosis, clubbing, or edema
NEUROLOGIC: grossly intact
Left upper quadrant abdominal pain likely due to Alcoholic Gastritis with history of variceal bleed/Mild colitis on CT --no ABX as afebrile with nml WBC count--tolerated diet--apprec GI--OK for d/c with outpt follow up--cont chronic outpt pain
control--carafate and PPI
Acute alcohol use with acute relapse after Long period of recent sobriety and labs overall appear somewhat improved compared to prior admission in March--MSAS, thiamine, folate
Chronic abdominal pain with chronic opioid dependency-- Pain control with oxycodone 5/10 mg p.o. every 4 hours as needed for moderate/severe pain and Dilaudid 0.5 mg IV every 4 hours as needed for breakthrough pain-- Continue home gabapentin 600 mg
p.o. nightly and 100 mg p.o. twice daily
Alcoholic Cirrhosis--apprec GI--tolerating diet--follow up with GI as outpt
Essential Hypertension� Continue home carvedilol 3.125 mg p.o. twice daily
Electrolyte abnormalities with anion gap metabolic acidosis/Hypokalemia, hypomagnesemia--replete--likely due to alcoholic ketoacidosis
History of seizures� Continue home lamotrigine 50 mg p.o. twice daily
Anxiety / Depression - Continue home escitalopram (Lexapro) 10 mg p.o. daily
DVT Proph--SCDs
Code Status-- Full
Original Note:
Today's Communication/Plan
-
Plan to discharge today if tolerating diet advancement to solids. Patient tolerated chicken without vomiting/nausea.
GI recommended medical management; procedural management not needed as no sign of active bleed.
Assessment / Plan
Assessment / Plan
Impression
Patient is a 44y F with PMH notable for alcohol use disorder, alcoholic hepatitis with fibrosis, GI bleeds, variceal bleed, hypertension, who presented with abdominal pain with N/V x 2 days after EtOH relapse x 4 days.
HPI
Patient was sober for 100 days before she relapsed about 5-6 days ago. She states that she has been drinking a bottle (750mL) daily of hard liquor upsetting interaction with her sister. Her last drink was a few hours prior to arrival in ED.
Patient notes that she developed right upper abdominal pain and midepigastric pain 2 days ago. It is not radiating. It is 10 out of 10 in severity nothing seems to make it better. She endorses 6-7 bouts of brown emesis yesterday and today. Prior
h/o similar admission in March of this year. Patient notes that she had been sober since that discharge until this recent relapse. No diarrhea, hematochezia, melena. No fevers / chills. She endorses heart palpitations but denies any chest pain,
shortness of breath. She is also emotionally upset with herself or drinking so much.
ED
Suspect upper GI bleed. Vitals stable. Will give IV Protonix, Zofran, Dilaudid for pain. Will start fluids as unable to keep anything down in the last 48 hours. Hg much improved at 11.6 from prior 8.4 in 04/28/25. Lipase 270 which is reassuring that
this is not pancreatitis. Alcohol level noted to be 280. CT abdomen pelvis ordered as abdominal pain still significant despite total of 1 mg of Dilaudid.
CT abdomen pelvis: diffuse fatty liver infiltration, mild hepatomegaly, mild splenomegaly. Recanalized umbilical vein. Slightly nodular contour of the liver suggestive of cirrhotic appearance. Mildly distended gallbladder with possible strands
sludge in the gallbladder. Pancreas is unremarkable. Mild wall thickening of the colon most pronounced in the descending colon throughout the rectum likely due to mild colitis. Trace free fluid, no free air, normal appendix.
Plan
Left upper quadrant abdominal pain
Alcoholic Gastritis, history of variceal bleed
Mild colitis on CT
- Patient denies diarrhea. No leukocytosis. Holding off on starting antibiotics.
Long period of recent sobriety and labs overall appear somewhat improved compared to prior admission in March.
� Lipase 270 normal. LFTs elevated. PT elevated, INR and PTT normal
� Microcytic anemia - Hemoglobin 11.6, MCV 78. Likely blood loss anemia
- No sign of active GI bleeding at present.
- CT abdomen pelvis with IV contrast: No significant acute findings 1. Mild bowel wall thickening involving the descending and sigmoid colon, suggestive of mild colitis. 2. Severe diffuse fatty infiltration of the liver. 3. Nodular contour of the
liver, suggestive of cirrhosis. Recanalization of the umbilical veins and mild splenomegaly, suggestive of portal hypertension.
Interventions:
- IVF support. IV PPI.
- Pain control with oxycodone 5/10 mg p.o. every 4 hours as needed for moderate/severe pain and Dilaudid 0.5 mg IV every 4 hours as needed for breakthrough pain. Avoided Tylenol due to cirrhosis.
� N.p.o.
� Zofran 4 mg IV every 6 hours as needed
- Sucralfate
Alcoholic Cirrhosis
- MELD 14 points. 6% estimated 3-month mortality
- GI evaluation: Sucralfate, PPI, antiemetics, Coreg
Advance diet to regular, which patient tolerated
Alcohol Use Disorder with Acute Relapse
Urine toxicology screen positive for benzodiazepines
- MSAS protocol. Monitor for symptoms of alcohol withdrawal and treat with BZDs as needed. MSAS score 3-4 for (tremor and tachycardia) and decreased to 1 for tachycardia.
- Thiamine, folate, MVI replacement, etc.
Hypertension
� Continue home carvedilol 3.125 mg p.o. twice daily
� Elevated BPs in 150s could be a symptom of alcohol withdrawal. Fluctuates between 110s and 150s
Electrolyte abnormalities: Hypokalemia, hypomagnesemia
Anion Gap Metabolic Acidosis - Likely Alcoholic Ketoacidosis
� Replete as needed. KCl IV 40 mEq 08/02/2025, 08/03/25
- Magnesium repleted 08/03/25
Chronic Pain Syndrome
- Pain in LUQ since [facility] admission. Patient notes that she is on gabapentin and oxycodone PRN for pain control as she cannot take Tylenol / NSAIDs.
- Continue home gabapentin 600 mg p.o. nightly and 100 mg p.o. twice daily
- Dilaudid for acute pain - wean to usual home regimen: Oxycodone 10 mg p.o. every 6 hours as needed
- Miralax 17g daily scheduled
History of seizures
� Continue home lamotrigine 50 mg p.o. twice daily
Anxiety / Depression
- Continue home escitalopram (Lexapro) 10 mg p.o. daily
DVT Prophylaxis: SCDs
Code Status: Full
Anticipated Discharge: Within 24 hours
Subjective/Interval History
-
Date of Service: August 03, 2025
No acute events overnight. Patient had no new complaints this morning. She continued to endorse left upper quadrant pain. She denies nausea and vomiting on her clear liquid diet
Objective Data
-
Labs:
Hematology and Coagulation - Last 24 hours
08/03/25 Range/Units
07:58
WBC 3.3 L (4.8-10.8) 10^3/uL
RBC 3.59 L (4.20-5.40) 10^6/uL
Hgb 9.2 L (12.0-16.0) g/dL
Hct 29.3 L (37.0-47.0) %
MCV 81.6 (81.0-99.0) fL
MCH 25.6 L (27.0-31.0) pg
MCHC 31.4 L (33.0-37.0) g/dL
RDW 16.4 H (11.5-14.5) %
Plt Count 92 L D (130-400) 10^3/uL
MPV 8.3 (7.4-10.4) fL
Abs Immat Gran (auto) 0.0 (0-0.05) 10^3/uL
Absolute Neuts (auto) 1.6 (1.4-6.5) 10^3/uL
Absolute Lymphs (auto) 1.3 (1.2-3.4) 10^3/uL
Absolute Monos (auto) 0.3 (0.1-0.6) 10^3/uL
Absolute Eos (auto) 0.1 (0-0.7) 10^3/uL
Absolute Basos (auto) 0.0 (0-0.2) 10^3/uL
Immature Gran % 0.3 (0-0.5) %
Neutrophils % 47.5 (42.2-75.2) %
Lymphocytes % 39.5 (20.5-51.1) %
Monocytes % 8.8 (1.7-9.3) %
Eosinophils % 3.3 (0-6) %
Basophils % 0.6 (0-2) %
Nucleated RBC % 0 %
PT 18.4 H (11.4-14.6) Sec
INR 1.51
Blood Gas and Chemistry - Last 24 hours
08/03/25 Range/Units
07:58
Sodium 136 (135-145) mmol/L
Potassium 3.3 L (3.5-5.1) mmol/L
Chloride 100 (98-107) mmol/L
Carbon Dioxide 25 (22-30) mmol/L
BUN 8 (7-17) mg/dl
Creatinine 0.5 L (0.6-1.0) mg/dL
Estimated Creat Clear 104 ml/min
eGFR > 60.00
Glucose 86 (70-99) mg/dl
Calcium 8.7 (8.4-10.2) mg/dl
Magnesium 1.4 L (1.6-2.3) mg/dl
Total Bilirubin 2.5 H (0.2-1.3) mg/dl
AST 56 H (14-36) U/L
ALT 25 (0-35) U/L
Alkaline Phosphatase 132 H (38-126) U/L
Total Protein 7.5 (6.3-8.2) g/dl
Albumin 3.9 (3.5-5.0) g/dl
Other lab results - Last 24 hours
08/02/25 Range/Units
13:11
Urine Color Yellow
Urine Clarity Clear (Clear)
Urine pH 5.0 (5.0-9.0)
Ur Specific [place] 1.020 (<1.030)
Urine Ketones 3+ A (Negative)
Urine Occult Blood 2+ A (Negative)
Urine Nitrite Negative (Negative)
Urine Bilirubin Negative (Negative)
Urine Urobilinogen 1+ (Neg - 1+)
Ur Leukocyte Esterase Negative (Negative)
Urine RBC 3-6 A (0-2) /HPF
Urine WBC 3-5 (0-5) /HPF
Ur Squamous Epith Cells >30 (Few) /LPF
Urine Bacteria Few A (Negative)
Urine Glucose Negative (Negative)
Urine Albumin 2+ A (Neg - Trace)
Vital Signs:
Vital Signs
Temp Pulse Resp BP Pulse Ox
98.7 F 96 18 140/91 96
08/03/25 07:04 08/03/25 08:54 08/03/25 07:04 08/03/25 08:54 08/03/25 07:04
I&O
08/02/25 08/03/25 08/04/25
05:59 06:59 06:59
Intake Total 480 / 480
Balance 480 / 480
Review of Systems
-
History Source: Patient
All other systems: Reviewed and negative
Physical Exam
-
General: Well Developed, Well Nourished, No Apparent Distress, Pain and Conversant
HEENT: Normocephalic, Atraumatic, Moist Mucous Membranes, Anicteric, Nose Appears Normal and Ears Appear Normal
Respiratory: Clear to Auscultation
Cardiac: Regular Rhythm and S1/S2
GI: Soft, Nondistended, Normal Bowel Sounds and Tender (Guarding on palpation; abdominal pain to palpation in all 4 quadrants.)
Musculoskeletal: No Clubbing, No Cyanosis and No Edema
Skin: Warm and Dry
Neuro: Awake and Alert
Psych: Calm
[2025-08-03] MEDS: KCL 40 MEQ PO (10:43)
[2025-08-03] MEDS: MAGNESIUM SULFATE 100 IV (10:43)
[2025-08-03 11:22] VITALS: BP 141/90
[2025-08-03 14:37] VITALS: BP 111/72
--- NOTE | 2025-08-03 14:39 | CM ---
Patient seen at bedside with physicians. Patient states she has no needs for discharge and family to transport home. CM will continue to follow for discharge planning needs.
Plan; home with no needs anticipated.
--- NOTE | 2025-08-03 14:59 | W.DCSUMMARY ---
Addendum entered and electronically signed by Jennifer Castro MD 08/03/25 18:59:
Read, reviewed, and agree. See same day progress note for additional details. Time spent coordinating care, DC planning, review of DC plan of care with resident, transition of care, review of records in EMR, med rec, consults, notes, d/w
consultants, nursing, family, and CM = 31 minutes
Original Note:
Discharge Summary
Discharge Data
Date of Admission: 08/02/25
Date of Discharge: 08/03/25
-
Pending Results: No
Hospital Course
Discharging Physician : Dr. Castro and Dr. Starks
Disposition : Home
Primary care physician : Dr. Thomas
Principal Discharge diagnosis :
Gastritis due to alcohol use
Chronic Discharge diagnosis :
Alcoholic hepatitis
Cirrhosis
History of variceal bleed
History of alcohol use disorder
Hypertension
Seizures
Anxiety/depression
Hospital Course :
Patient is a 44y F with PMH notable for alcohol use disorder, alcoholic hepatitis with fibrosis, GI bleeds, variceal bleed, hypertension, who presented with abdominal pain with N/V x 2 days after EtOH relapse x 4 days.
Patient was sober for 100 days before she relapsed about 5-6 days ago. She states that she has been drinking a bottle (750mL) daily of hard liquor upsetting interaction with her sister. Her last drink was a few hours prior to arrival in ED.
Patient notes that she developed right upper abdominal pain and midepigastric pain 2 days ago. It is 10 out of 10 in severity nothing seems to make it better. She endorses 6-7 bouts of brown emesis yesterday and today. Prior h/o similar admission
in March of this year. Patient notes that she had been sober since that discharge until this recent relapse. No diarrhea, hematochezia, melena. No fevers / chills. She endorses heart palpitations but denies any chest pain, shortness of breath. She
is also emotionally upset with herself or drinking so much.
In the ED, suspected upper GI bleed. Vitals stable. Gave IV Protonix, Zofran, Dilaudid for pain. Started fluids as unable to keep anything down in the last 48 hours. Hg much improved at 11.6 from prior 8.4 in 04/28/25. Lipase 270 which is
reassuring that this is not pancreatitis. Alcohol level noted to be 280. CT abdomen pelvis ordered as abdominal pain still significant despite total of 1 mg of Dilaudid.
GI was consulted. Discharged on sucralfate and pantoprazole 40 mg p.o. twice daily for suspected upper GI bleed. Instructed the patient to follow-up with her medical billing and coding specialist Dr. Matthew.
Left upper quadrant abdominal pain
Alcoholic Gastritis, history of variceal bleed
Mild colitis on CT
- Patient denies diarrhea. No leukocytosis. Holding off on starting antibiotics.
Long period of recent sobriety and labs overall appear somewhat improved compared to prior admission in March.
� Lipase 270 normal. LFTs elevated. PT elevated, INR and PTT normal
� Microcytic anemia - Hemoglobin 11.6, MCV 78. Likely blood loss anemia
- No sign of active GI bleeding at present.
- CT abdomen pelvis with IV contrast: No significant acute findings 1. Mild bowel wall thickening involving the descending and sigmoid colon, suggestive of mild colitis. 2. Severe diffuse fatty infiltration of the liver. 3. Nodular contour of the
liver, suggestive of cirrhosis. Recanalization of the umbilical veins and mild splenomegaly, suggestive of portal hypertension.
Interventions:
- IVF support. IV PPI.
- Pain control with oxycodone 5/10 mg p.o. every 4 hours as needed for moderate/severe pain and Dilaudid 0.5 mg IV every 4 hours as needed for breakthrough pain. Avoided Tylenol due to cirrhosis.
� N.p.o.
� Zofran 4 mg IV every 6 hours as needed
- Sucralfate
Alcoholic Cirrhosis
- MELD 14 points. 6% estimated 3-month mortality
- GI evaluation: Sucralfate, PPI, antiemetics, Coreg
Patient tolerated diet advancement to regular diet without nausea or vomiting
Alcohol Use Disorder with Acute Relapse
Urine toxicology screen positive for benzodiazepines
- MSAS protocol. Monitor for symptoms of alcohol withdrawal and treat with BZDs as needed. MSAS score 3-4 for (tremor and tachycardia) and decreased to 1 for tachycardia.
- Thiamine, folate, MVI replacement, etc.
Hypertension
� Continue home carvedilol 3.125 mg p.o. twice daily
� Elevated BPs in 150s could be a symptom of alcohol withdrawal. Fluctuates between 110s and 150s
Electrolyte abnormalities: Hypokalemia, hypomagnesemia
Anion Gap Metabolic Acidosis - Likely Alcoholic Ketoacidosis
� Replete as needed. KCl IV 40 mEq 08/02/2025, 08/03/25
- Magnesium repleted 08/03/25
Chronic Pain Syndrome
- Pain in LUQ since March admission. Patient notes that she is on gabapentin and oxycodone PRN for pain control as she cannot take Tylenol / NSAIDs.
- Continue home gabapentin 600 mg p.o. nightly and 100 mg p.o. twice daily
- Dilaudid for acute pain - wean to usual home regimen: Oxycodone 10 mg p.o. every 6 hours as needed
- Miralax 17g daily scheduled
History of seizures
� Continue home lamotrigine 50 mg p.o. twice daily
Important imaging findings :
CT abdomen pelvis with IV contrast 08/02/2025
1. Mild bowel wall thickening involving the descending and sigmoid colon, suggestive of mild colitis.
2. Severe diffuse fatty infiltration of the liver.
3. Nodular contour of the liver, suggestive of cirrhosis. Recanalization of the umbilical veins and mild splenomegaly, suggestive of portal hypertension.
Procedure findings : None
Discharge Plan
-
Patient Disposition: Home (Routine Discharge)
Discharge Diagnosis/Procedures: Concern for alcohol withdrawal
Alcoholic hepatitis
Alcoholic gastritis
History of variceal bleed
Hypertension
Anxiety/depression
Chronic pain of left upper quadrant
Seizure
Condition: Good
Diet: Low Sodium
Activity: No restrictions
Driving Restrictions: As prior to admission
Bathing Restrictions: None
Referrals:
Mariola Thomas DO [Family Provider, Family Practice] - in less than 1 week
Shelli Matthew DO [Active, Gastroenterology] - in less than 1 week
Referral Note: alcoholic hepatitis, concern for gastritis/ulcer but not actively bleeding during admission, LUQ pain of unclear etiology
Additional Discharge Medication Instructions: Your abdominal pain was likely due to gastritis. For the possible GI ulceration/gastritis, please take sucralfate daily in the evening and Protonix (pantoprazole) 40 mg twice daily. Please follow-up
with medical billing and coding specialist Dr. Matthew and your primary care doctor within a week.
Since you appeared to have constipation, you were provided MiraLAX at discharge.
Prescriptions:
New
sucralfate 100 mg/mL Suspension
1 g PO ACHS Qty: 300 0RF
polyethylene glycol 3350 17 gram Powder In Packet
17 g PO DAILY Qty: 30 0RF
Continued
pantoprazole [Protonix] 40 mg tablet,delayed release (DR/EC)
40 mg PO BID Qty: 60 1RF
gabapentin 600 mg tablet
600 mg PO HS
carvedilol 3.125 mg tablet
3.125 mg PO BID
lamotrigine 25 mg tablet
50 mg PO BID
gabapentin 300 mg capsule
300 mg PO BID
buspirone 15 mg tablet
15 mg PO BID
escitalopram oxalate 10 mg tablet
10 mg PO DAILY
Discontinued
oxycodone 10 mg tablet
10 mg PO Q6HPRN PRN (Reason: Pain)
Discharge Orders:
Discharge Patient (As Directed); Ordered 08/03/25
Ordered By: Elena Starks
Discharge Date and Time
Print Language: [place]
== END 2025-08-03 15:35 | disposition home or self-care (01) | DRG 378 ==
LOC: 2 NORTH 02:19
PROVIDERS: Emergency Medicine; ADMITTING PHYSICIAN Hospitalist; ATTENDING PHYSICIAN Internal Medicine; CONSULT PHYSICIAN Internal Medicine Gastroenterology; EMERGENCY PHYSICIAN Emergency Medicine; FAMILY PHYSICIAN Family Medicine
DX: K29.21 Alcoholic gastritis with bleeding (principal); D62 Acute posthemorrhagic anemia; K76.6 Portal hypertension; K70.10 Alcoholic hepatitis without ascites; F10.10 Alcohol abuse, uncomplicated; R56.9 Unspecified convulsions; I10 Essential (primary) hypertension; F41.9 Anxiety disorder, unspecified; F32.A Depression, unspecified; G89.4 Chronic pain syndrome; K70.30 Alcoholic cirrhosis of liver without ascites; F17.290 Nicotine dependence, other tobacco product, uncomplicated; Z88.5 Allergy status to narcotic agent; K76.0 Fatty (change of) liver, not elsewhere classified; J45.909 Unspecified asthma, uncomplicated; R79.1 Abnormal coagulation profile; Z79.899 Other long term (current) drug therapy
CPT/HCPCS: 74177; 80048; 80053; 80076; 80306; 80307; 81003; 81015; 82010; 82077; 83605; 83690; 83735; 84100; 84703; 85025; 85027; 85610; 85730; 93005; 96361; 96374; 96375; 96376; 99285; 99406; Q9967